=== PATIENT | female | born 1930 | race Caucasian/White ===

== ENCOUNTER 2017-02-04 12:42 | Emergency (ER) | payer MEDICARE ==
[~2017-02-04] VITALS: Ht 157.5 cm; Wt 60.0 kg
[~2017-02-04 12:42] MED LIST: AMLO10 PO; DOCU1CAP39 PO; ESCI10TA PO; FURO20 PO; LEVEMIR SQ; LEVO.1 PO; LORTA5 PO; METF500 PO; METO50TA PO; PROT40TA PO; THERM PO; VITA20002 PO
[2017-02-04 12:47] VITALS: BP 174/84; PULSE 82; RESP 16; TEMP 98.3; O2SAT 96
[2017-02-04] MEDS ORDERED: CHOL20005 PO (12:57)
[2017-02-04] MEDS ORDERED: FURO20TA PO (12:57)
[2017-02-04] MEDS ORDERED: METF500T PO (12:57)
[2017-02-04] MEDS ORDERED: ESCI20TA PO (12:57)
[2017-02-04] MEDS ORDERED: BACT400T PO (12:57)
[2017-02-04] MEDS ORDERED: GABA100C4 PO (12:57)
--- NOTE | 2017-02-04 14:10 | RADHPO ---
EXAM DATE/TIME: 02/04/2017 13:34 [facility] COMPARISON: CT BRAIN W/O CONTRAST, May 28, 2014, 23:25. INDICATIONS : Fall and dizziness. RADIATION DOSE: 62.69 CTDIvol (mGy) MEDICAL HISTORY : Seizures. Cerebrovascular disease. Hypertension.uterine cancer. SURGICAL HISTORY : Hysterectomy. ENCOUNTER: Initial ACUITY: 1 day PAIN SCALE: 4/10 LOCATION: cranial TECHNIQUE: Multiple contiguous axial images were obtained of the head. Using automated exposure control and adj ustment of the mA and/or kV according to patient size, radiation dose was kept as low as reasonably a chievable to obtain optimal diagnostic quality images. FINDINGS: Remote left occipital infarct with encephalomalacia and ex vacuo dilatation of the posterior horn of the left lateral ventricle. There is patchy white matter disease. No fractures are identified. Chroni c opacification of right maxillary sinus. No signs of intracranial hemorrhage, acute infarct, or mass . CONCLUSION: No acute disease. Abdon Garcia MD on February 04, 2017 at 14:08 Board Certified Radiologist. This report was verified electronically.
--- NOTE | 2017-02-04 14:11 | RADHPO ---
EXAM DATE/TIME: 02/04/2017 13:34 [facility] COMPARISON: No previous studies available for comparison. INDICATIONS : Left shoulder pain; fall today. MEDICAL HISTORY : None. SURGICAL HISTORY : None. ENCOUNTER: Initial ACUITY: 1 day PAIN SCORE: 2/10 LOCATION: Left shoulder. FINDINGS: Multiple view examination of the left shoulder demonstrates no evidence of fracture or dislocation. The glenohumeral and acromioclavicular joints are maintained. There is normal range of motion betwee n internal and external rotation. Bony mineralization is normal. CONCLUSION: No acute disease. Abdon Garcia MD on February 04, 2017 at 14:10 Board Certified Radiologist. This report was verified electronically.
--- NOTE | 2017-02-04 14:46 | RADHPO ---
EXAM DATE/TIME: 02/04/2017 13:34 [facility] COMPARISON: No previous studies available for comparison. INDICATIONS : Fall. Dizziness. RADIATION DOSE: 26.55 CTDIvol (mGy) MEDICAL HISTORY : Cerebrovascular disease. Hypertension. Seizures.Uterine cancer. SURGICAL HISTORY : Hysterectomy. ENCOUNTER: Initial ACUITY: 1 day PAIN SCALE: 4/10 LOCATION: Bilateral neck TECHNIQUE: Volumetric scanning of the cervical spine was performed. Multiplanar reconstructions in the sagittal, coronal and oblique axial planes were performed. Using automated exposure control and adjustment o f the mA and/or kV according to patient size, radiation dose was kept as low as reasonably achievable to obtain optimal diagnostic quality images. FINDINGS: VERTEBRAE: Normal vertebral body height. No fracture is identified. There is partial fusion between the C7 and T 1 vertebral body and posterior elements. ALIGNMENT: No anterolisthesis or retrolisthesis is present. The craniocervical junction and C1-C2 level demonstrate no acute finding. There are degenerative rhoades ges at the atlantodens interval. C2-C3: No disc herniation, canal stenosis, or neural foraminal stenosis. C3-C4: No disc herniation, canal stenosis, or neural foraminal stenosis. C4-C5: There is a small central disc protrusion which appears to abut the anterior aspect of the spinal cord . However, no spinal canal stenosis or neural foraminal narrowing is appreciated. C5-C6: There is mild decreased disc height with moderate size central disc protrusion with mineralization. T his abuts the spinal cord and likely causes mild spinal canal stenosis. No neural foraminal narrowing is appreciated. C6-C7: There is a broad-based disc bulge. No spinal canal stenosis or neural foraminal narrowing is visualiz ed. C7-T1: There is partial osseous fusion between these levels. No canal stenosis or neural foraminal narrowing is present. The visualized paraspinous structures demonstrate no acute finding. There is mild centrilobular emphy sema in the upper lobes. Please refer to brain CT report for description of the intracranial findings . CONCLUSION: 1. No acute cervical spine abnormality or fracture is identified. 2. There is a disc herniation at C4-C5 and C5-C6. At C5-C6 there is likely mild spinal canal stenosis due to the disc herniation. Vishnu Pineda MD on February 04, 2017 at 14:38 Board Certified Radiologist. This report was verified electronically.
--- NOTE | 2017-02-04 14:55 | PD ---
HPI . Fall Chief Complaint: Dizziness Time Seen by Provider: 13:18 Travel History International Travel<30 days: No Contact w/Intl Traveler<30days: No Traveled to known affect area: No History of Present Illness HPI Patient presents ambulatory to family member following a fall at home. She has a history of dementia. She lives with the family member. She reportedly had a mechanical fall and struck her head on a piece of furniture. She subsequently complained with dizziness. She has also been complaining with left shoulder pain. PFSH Past Medical History Hx Anticoagulant Therapy: No Alzheimer's Disease: Yes Arthritis: Yes Asthma: No Autoimmune Disease: No Anxiety: No Depression: No Heart Rhythm Problems: No Cancer: Yes (uterine ) Cardiovascular Problems: Yes High Cholesterol: No Chemotherapy: Yes Chest Pain: No Congestive Heart Failure: No COPD: No Cerebrovascular Accident: Yes (R CVA) Diabetes: Yes Patient Takes Glucophage: Yes Diminished Hearing: No Endocrine: Yes GERD: Yes Genitourinary: No Hiatal Hernia: Yes (REPAIRED) Hypertension: Yes Immune Disorder: No Kidney Stones: No Musculoskeletal: Yes Neurologic: Yes Psychiatric: No Reproductive: No Respiratory: Yes Radiation Therapy: No Renal Failure: No Seizures: Yes ( CHILD) Sickle Cell Disease: No Sleep Apnea: No Thyroid Disease: Yes (HYPO) Ulcer: No Tetanus Vaccination: > 5 Years Influenza Vaccination: Yes ?: Not Menopausal: Yes Past Surgical History Abdominal Surgery: Yes (brittney) AICD: No Appendectomy: Yes Arteriovenous Shunt: No Cardiac Surgery: No Cholecystectomy: Yes Ear Surgery: No Endocrine Surgery: No Eye Surgery: No Genitourinary Surgery: No Gynecologic Surgery: Yes (hysterectomy) Hysterectomy: Yes Insulin Pump: No Joint Replacement: No Oral Surgery: No Pacemaker: No Thoracic Surgery: No Other Surgery: Yes Social History Alcohol Use: No Tobacco Use: No Substance Use: No Allergies-Medications (Allergen,Severity, Reaction): Coded Allergies: No Known Allergies (Unverified , 02/04/17) Reported Meds & Prescriptions Reported Meds & Active Scripts Active Reported Gabapentin 100 Mg Cap 100 Mg PO HS Metformin (Metformin HCl) 500 Mg Tab 500 Mg PO BIDPC With meals Bactrim (Sulfamethoxazole-Trimethoprim) 400-80 Mg Tab 1 Tab PO BID Escitalopram (Escitalopram Oxalate) 20 Mg Tab 20 Mg PO DAILY Furosemide 20 Mg Tab 20 Mg PO DAILY D3 Super Strength (Cholecalciferol) 2,000 Unit Cap 2,000 Units PO DAILY Review of Systems Except as stated in HPI: all other systems reviewed are Neg Eyes: No: Blurred Vision HENT: Positive: Headaches Musculoskeletal: Positive: Arthralgias Neurologic: Positive: Dizziness Physical Exam Narrative GENERAL: Pleasant, elderly, demented woman who is in no acute distress SKIN: Warm and dry. HEAD: Contusion palpable to the left side of her scalp. EYES: Pupils equal and round. Extraocular movements are intact. ENT: No nasal bleeding or discharge. Mucous membranes pink and moist. NECK: Trachea midline. She does not seem to have any C-spine tenderness. CARDIOVASCULAR: Regular rate and rhythm. RESPIRATORY: No accessory muscle use. MUSCULOSKELETAL: No obvious deformities. No edema. She has tenderness over the left posterior glenohumeral joint. NEUROLOGICAL: Awake and alert. No obvious cranial nerve deficits. Motor grossly within normal limits. Normal speech. PSYCHIATRIC: Appropriate mood and affect. Data Data Last Documented VS Vital Signs Date Time Temp Pulse Resp B/P Pulse Ox O2 Delivery O2 Flow Rate FiO2 02/04/17 13:02 87 100 Room Air 02/04/17 12:47 98.3 16 174/[address] Brain W/O Iv Contrast(Rout) (02/04/17 13:18) Ct Cerv Spine W/O Contrast (02/04/17 13:18) Shoulder, Complete (>2vws) (02/04/17 13:18) [facility] Medical Decision Making Medical Screen Exam Complete: Yes Emergency Medical Condition: Yes Differential Diagnosis My differential diagnosis of head trauma includes but is not limited to scalp contusion, concussion, intracerebral hemorrhage. Differential diagnosis of extremity trauma includes but is not limited to fracture, sprain or strain, dislocation, contusion Narrative Course Patient presents for evaluation of injury sustained in a fall. She has had a blow to her head and is complaining of left shoulder pain. Last Impressions Shoulder X-Ray 02/04/171317 Signed Impressions: Service Date/Time: Saturday, February 04, 2017 13:34 - CONCLUSION: No acute disease. Abdon Garcia MD Head CT 02/04/178 Signed Impressions: Service Date/Time: Saturday, February 04, 2017 13:34 - CONCLUSION: No acute disease. Abdon Garcia MD CT of her C-spine is also negative for acute injury. Some degenerative changes. Plain films were independently viewed by me. Diagnosis Primary Impression: Scalp contusion Additional Impression: Contusion of left shoulder Qualified Code: S40.012A - Contusion of left shoulder, initial encounter Patient Instructions: General Instructions, Scalp Contusion in Adults (ED) Disposition: 01 DISCHARGE HOME Condition: Stable Cleopatra Sawyer MD Feb 04, 2017 14:55
== END 2017-02-04 15:09 | disposition home or self-care (01) ==
LOC: PHED 12:42
DX: S40.012A Contusion of left shoulder, initial encounter (principal); S00.03XA Contusion of scalp, initial encounter; I10 Essential (primary) hypertension; F03.90 Unspecified dementia, unspecified severity, without behavioral disturbance, psychotic disturbance, mood disturbance, and anxiety; Z86.73 Personal history of transient ischemic attack (TIA), and cerebral infarction without residual deficits; E03.9 Hypothyroidism, unspecified; W18.30XA Fall on same level, unspecified, initial encounter; Y93.9 Activity, unspecified; Y92.9 Unspecified place or not applicable; Y99.9 Unspecified external cause status
CPT/HCPCS: 70450; 72125; 73030

== ENCOUNTER 2017-05-28 23:24 | Emergency (ER) | payer MEDICARE ==
[~2017-05-28] VITALS: Ht 154.9 cm; Wt 60.0 kg
[~2017-05-28 23:24] MED LIST changes: -AMLO10 PO; +BACT400T PO; +CHOL20005 PO; -DOCU1CAP39 PO; -ESCI10TA PO; +ESCI20TA PO; -FURO20 PO; +FURO20TA PO; +GABA100C4 PO; -LEVEMIR SQ; -LEVO.1 PO; -LORTA5 PO; -METF500 PO; +METF500T PO; -METO50TA PO; -PROT40TA PO; -THERM PO; -VITA20002 PO
[2017-05-28 23:31] VITALS: BP 162/65; PULSE 92; RESP 18; TEMP 98.4; O2SAT 97
[2017-05-28] MEDS ORDERED: SODIUM CHLORIDE 0.9% FLUSH 10 ML FLUSH IVF PRN (23:45)
[2017-05-28] MEDS ORDERED: LANTUS2P SQ (23:46)
--- NOTE | 2017-05-28 23:48 | PD ---
HPI Chief Complaint: Fall Time Seen by Provider: 23:44 Travel History International Travel<30 days: No Contact w/Intl Traveler<30days: No Traveled to known affect area: No History of Present Illness HPI 86-year-old female with history of dementia, presents to the ER today brought in by granddaughter because she tripped and fell at home hitting her head. She has an abrasion to the right forehead area, denies loss of consciousness, denies injuries. She only complains of a headache currently. Modifying Factors: None Associated Signs & Symptoms: Trip and fall, head injury Risk Factors: Elderly, demented PFSH Past Medical History Hx Anticoagulant Therapy: No Alzheimer's Disease: Yes Arthritis: Yes Asthma: No Autoimmune Disease: No Anxiety: No Depression: No Heart Rhythm Problems: No Cancer: Yes (uterine ) Cardiovascular Problems: Yes High Cholesterol: No Chemotherapy: Yes Chest Pain: No Congestive Heart Failure: No COPD: No Cerebrovascular Accident: Yes (R CVA) Diabetes: Yes Diminished Hearing: No Endocrine: Yes GERD: Yes Genitourinary: No Hiatal Hernia: Yes (REPAIRED) Hypertension: Yes Immune Disorder: No Kidney Stones: No Musculoskeletal: Yes Neurologic: Yes Psychiatric: No Reproductive: No Respiratory: Yes Radiation Therapy: No Renal Failure: No Seizures: Yes ( CHILD) Sickle Cell Disease: No Sleep Apnea: No Thyroid Disease: Yes (HYPO) Ulcer: No ?: Not Menopausal: Yes Past Surgical History Abdominal Surgery: Yes (brittney) AICD: No Appendectomy: Yes Arteriovenous Shunt: No Cardiac Surgery: No Cholecystectomy: Yes Ear Surgery: No Endocrine Surgery: No Eye Surgery: No Genitourinary Surgery: No Gynecologic Surgery: Yes (hysterectomy) Hysterectomy: Yes Insulin Pump: No Joint Replacement: No Oral Surgery: No Pacemaker: No Thoracic Surgery: No Other Surgery: Yes Social History Alcohol Use: No Tobacco Use: No Substance Use: No Allergies-Medications (Allergen,Severity, Reaction): Coded Allergies: No Known Allergies (Unverified , 05/28/17) Reported Meds & Prescriptions Reported Meds & Active Scripts Active Reported Lantus Inj (Insulin Glargine) 1,000 Unit/10 Ml Vial 10 Units SQ HS Gabapentin 100 Mg Cap 100 Mg PO HS Metformin (Metformin HCl) 500 Mg Tab 500 Mg PO BIDPC With meals Escitalopram (Escitalopram Oxalate) 20 Mg Tab 20 Mg PO DAILY Furosemide 20 Mg Tab 20 Mg PO DAILY D3 Super Strength (Cholecalciferol) 2,000 Unit Cap 2,000 Units PO DAILY Review of Systems ROS Limitations: Altered Mental Status (dementia) Except as stated in HPI: all other systems reviewed are Neg (per granddaughter) Physical Exam Narrative GENERAL: Well-developed elderly white female patient currently in no acute distress. Awake, alert. SKIN: Focused skin assessment warm/dry. HEAD: Small abrasion and ecchymosis over the right eyebrow. Normocephalic. EYES: Pupils equal and round. No scleral icterus. No injection or drainage. ENT: No nasal bleeding or discharge. Mucous membranes pink and moist. NECK: Trachea midline. No JVD. C-collar placed in the ER. CARDIOVASCULAR: Regular rate and rhythm. No murmur appreciated. CHEST: Nontender throughout without deformity or crepitance. No retractions or use of accessory muscles. RESPIRATORY: No accessory muscle use. Clear to auscultation. Breath sounds equal bilaterally. GASTROINTESTINAL: Abdomen soft, non-tender, nondistended. Hepatic and splenic margins not palpable. Pelvis: Stable and nontender to palpation. Nontender range of motion of the hips. MUSCULOSKELETAL: No obvious deformities. No clubbing. No cyanosis. No edema. NEUROLOGICAL: Awake and alert. No obvious cranial nerve deficits. Motor grossly within normal limits. Normal speech. PSYCHIATRIC: Appropriate mood and affect; insight and judgment normal. Data Data Last Documented VS Vital Signs Date Time Temp Pulse Resp B/P Pulse Ox O2 Delivery O2 Flow Rate FiO2 05/29/17 00:52 85 16 147/64 97 Room Air 05/28/17 23:31 98.4 Orders Basic Metabolic Panel (Bmp) (05/28/17 23:44) Complete Blood Count With Diff (05/28/17 23:44) Prothrombin Time / Inr (Pt) (05/28/17 23:44) Act Partial Throm Time (Ptt) (05/28/17 23:44) Type And Screen (05/28/17 23:44) Chest, Single Ap (05/28/17 23:44) Pelvis, Ap Only (Routine) (05/28/17 23:44) Iv Access Insert/Monitor (05/28/17 23:44) Ecg Monitoring (05/28/17 23:44) Oximetry (05/28/17 23:44) Oxygen Administration (05/28/17 23:44) Sodium Chloride 0.9% Flush (Ns Flush) (05/28/17 23:45) Shoulder, Limited(2vws) (05/28/17 23:48) Ct Brain W/O Iv Contrast(Rout) (05/29/17 23:44) Ct Cerv Spine W/O Contrast (05/29/17 23:44) Tetanus/Diphtheria Tox Adult (Tetanus/Di (05/29/17 01:00) Labs Laboratory Tests Test 05/29/17 00:20 White Blood Count 55.8 TH/MM3 Red Blood Count 3.29 MIL/MM3 Hemoglobin 9.7 GM/DL Hematocrit 29.0 % Mean Corpuscular Volume 88.3 FL Mean Corpuscular Hemoglobin 29.5 PG Mean Corpuscular Hemoglobin 33.5 % Concent Red Cell Distribution Width 13.6 % Platelet Count 135 TH/MM3 Mean Platelet Volume 6.7 FL Neutrophils (%) (Auto) % Lymphocytes (%) (Auto) % Monocytes (%) (Auto) % Eosinophils (%) (Auto) % Basophils (%) (Auto) % Neutrophils # (Auto) TH/MM3 Lymphocytes # (Auto) TH/MM3 Monocytes # (Auto) TH/MM3 Eosinophils # (Auto) TH/MM3 Basophils # (Auto) TH/MM3 CBC Comment AUTO DIFF Differential Total Cells 100 Counted Neutrophils % (Manual) 6 % Band Neutrophils % 1 % Lymphocytes % 92 % Monocytes % 1 % Neutrophils # (Manual) 3.9 TH/MM3 Differential Comment FINAL DIFF MANUAL Platelet Estimate LOW Platelet Morphology Comment NORMAL Red Cell Morphology Comment NORMAL Prothrombin Time 10.0 SEC Prothromb Time International 0.9 RATIO Ratio Activated Partial 25.8 SEC Thromboplast Time Sodium Level 136 MEQ/L Potassium Level 3.8 MEQ/L Chloride Level 100 MEQ/L Carbon Dioxide Level 27.7 MEQ/L Anion Gap 8 MEQ/L Blood Urea Nitrogen 26 MG/DL Creatinine 1.80 MG/DL Estimat Glomerular Filtration 27 ML/MIN Rate Random Glucose 261 MG/DL Calcium Level 8.5 MG/DL [facility] Medical Decision Making Medical Screen Exam Complete: Yes Emergency Medical Condition: Yes Medical Record Reviewed: Yes Interpretation(s) Laboratory Tests Test 05/29/17 00:20 White Blood Count 55.8 TH/MM3 (4.0-11.0) Red Blood Count 3.29 MIL/MM3 (4.00-5.30) Hemoglobin 9.7 GM/DL (11.6-15.3) Hematocrit 29.0 % (35.0-46.0) Platelet Count 135 TH/MM3 (150-450) Mean Platelet Volume 6.7 FL (7.0-11.0) Neutrophils % (Manual) 6 % (16-70) Lymphocytes % 92 % (9-44) Platelet Estimate LOW (NORMAL) Blood Urea Nitrogen 26 MG/DL (7-18) Creatinine 1.80 MG/DL (0.50-1.00) Estimat Glomerular Filtration 27 ML/MIN (>89) Rate Random Glucose 261 MG/DL (74-106) Last [address] 05/29/172343 Signed Impressions: Service Date/Time: Sunday, May 28, 2017 23:55 - CONCLUSION: 1. No acute hemorrhage, mass or infarction. 2. Remote left occipital infarct without change. Terrance Perez MD Cervical Spine CT 05/29/172343 Signed Impressions: Service Date/Time: Sunday, May 28, 2017 23:55 - CONCLUSION: Negative trauma CT. Terrance Perez MD Shoulder X-Ray 05/28/172347 Signed Impressions: Service Date/Time: Sunday, May 28, 2017 23:53 - CONCLUSION: 1. No acute fracture or malalignment. 2. Mild degenerative change involving the acromioclavicular joint. Terrance Perez MD Pelvis X-Ray 05/28/172343 Signed Impressions: Service Date/Time: Sunday, May 28, 2017 23:57 - CONCLUSION: 1. No acute fracture or malalignment. 2. Osteopenia and interval postsurgical change. Terrance Perez MD Chest X-Ray 05/28/172343 Signed Impressions: Service Date/Time: Sunday, May 28, 2017 23:52 - CONCLUSION: No acute disease. Terrance Perez MD Differential Diagnosis Intercranial injuries versus contusions versus fractures Narrative Course Lab work shows significant leukocytosis although this is mostly lymphocytosis and I suspect that this is secondary to patient's chronic CLL for which she is following up with hospice/home health aide. X-rays and CAT scans did not show any signs of acute injuries. She was given an update on her tetanus shot. At this point, findings were discussed with the patient's granddaughter and she states understanding. She will need to follow-up with primary care physician and hospice/home health aide regarding findings. She is afebrile and I do not suspect that this is secondary to sepsis. Return for any worsening in symptoms as needed. The plan has discussed with patient's granddaughter and she states understanding. Diagnosis Primary Impression: Scalp contusion Additional Impression: CLL (chronic lymphocytic leukemia) Disposition: 01 DISCHARGE HOME Condition: Stable Shekhar Hernandez MD May 28, 2017 23:48
--- NOTE | 2017-05-29 00:29 | RADRPT ---
EXAM DATE/TIME: 05/28/2017 23:55 [facility] COMPARISON: CT BRAIN W/O CONTRAST, February 04, 2017, 13:34. INDICATIONS : Fall, right sided pain. RADIATION DOSE: 57.32 CTDIvol (mGy) MEDICAL HISTORY : Hypertension. Cardiovascular disease Diabetes mellitus type 2.Uterine Cancer SURGICAL HISTORY : Appendectomy. Cholecystectomy.Hysterectomy. ENCOUNTER: Initial ACUITY: 1 day PAIN SCALE: 3/10 LOCATION: cranial TECHNIQUE: Multiple contiguous axial images were obtained of the head. Using automated exposure control and adj ustment of the mA and/or kV according to patient size, radiation dose was kept as low as reasonably a chievable to obtain optimal diagnostic quality images. DICOM format image data is available electro nically for review and comparison. FINDINGS: CEREBRUM: The ventricles are normal for age. No evidence of midline shift, mass lesion, hemorrhage or acute in farction. Old left occipital infarct is again noted with encephalomalacia and [id number] dila tation of the posterior horn of the left lateral ventricle. Patchy white matter changes are again not ed. No extra-axial fluid collections are seen. POSTERIOR FOSSA: The cerebellum and brainstem are intact. The 4th ventricle is midline. The cerebellopontine angle i s unremarkable. EXTRACRANIAL: The visualized portion of the orbits is intact. SKULL: The calvaria is intact. No evidence of skull fracture. CONCLUSION: 1. No acute hemorrhage, mass or infarction. 2. Remote left occipital infarct without change. Terrance Perez MD on May 29, 2017 at 0:25 Board Certified Radiologist. This report was verified electronically.
--- NOTE | 2017-05-29 00:31 | RADRPT ---
EXAM DATE/TIME: 05/28/2017 23:55 [facility] COMPARISON: CT CERVICAL SPINE W/O CONTRAST, February 04, 2017, 13:34. INDICATIONS : Fall, right sided pain. RADIATION DOSE: 25.79 CTDIvol (mGy) MEDICAL HISTORY : Hypertension. Cardiovascular disease Diabetes mellitus type 2.Uterine cancer SURGICAL HISTORY : Cholecystectomy. Appendectomy.Hysterectomy. ENCOUNTER: Initial ACUITY: 1 day PAIN SCALE: 3/10 LOCATION: neck TECHNIQUE: Volumetric scanning of the cervical spine was performed. Multiplanar reconstructions i n the sagittal, coronal and oblique axial planes were performed. Using automated exposure control a nd adjustment of the mA and/or kV according to patient size, radiation dose was kept as low as reason ably achievable to obtain optimal diagnostic quality images. DICOM format image data is available e lectronically for review and comparison. FINDINGS: The sagittal reconstructions demonstrate normal alignment and normal prevertebral soft tissues. The d ens is intact and there is a normal atlantoaxial relationship. Degenerative changes again noted in th e atlantoaxial joint. There is stable remote fusion of the C7 and T1 vertebral bodies. The axial images demonstrate that the vertebral bodies and posterior elements are intact. The soft ti ssues are within normal limits. There is no evidence of acute fracture or malalignment. CONCLUSION: Negative trauma CT. Terrance Perez MD on May 29, 2017 at 0:27 Board Certified Radiologist. This report was verified electronically.
--- NOTE | 2017-05-29 00:32 | RADRPT ---
EXAM DATE/TIME: 05/28/2017 23:52 [facility] COMPARISON: CHEST SINGLE AP, December 28, 2015, 16:07. INDICATIONS : Chest pain after fall. MEDICAL HISTORY : Cerebrovascular disease. Hypertension. Seizures.Uterine cancer. SURGICAL HISTORY : Hysterectomy. ENCOUNTER: Initial ACUITY: 1 day PAIN SCORE: 3/10 LOCATION: Bilateral chest FINDINGS: A single view of the chest demonstrates the lungs to be symmetrically aerated without evidence of mas s, infiltrate or effusion. The cardiomediastinal contours are unremarkable. Osseous structures are intact. CONCLUSION: No acute disease. Terrance Perez MD on May 29, 2017 at 0:30 Board Certified Radiologist. This report was verified electronically.
--- NOTE | 2017-05-29 00:33 | RADRPT ---
EXAM DATE/TIME: 05/28/2017 23:57 [facility] COMPARISON: PELVIS AP ONLY, December 28, 2015, 16:06. INDICATIONS : Pelvic pain post fall. MEDICAL HISTORY : Cerebrovascular disease. Hypertension. Seizures.Uterine cancer. SURGICAL HISTORY : Hysterectomy. Right hip replacement. ENCOUNTER: Initial ACUITY: 1 day PAIN SCORE: 6/10 LOCATION: Bilateral pelvis FINDINGS: A single frontal view of the pelvis demonstrates no evidence of fracture. The bony pelvic ring is in tact. There is diffuse osteopenia. Interval postsurgical changes are again noted status post open rig id internal fixation of a right intertrochanteric fracture. The soft tissues are intact. CONCLUSION: 1. No acute fracture or malalignment. 2. Osteopenia and interval postsurgical change. Terrance Perez MD on May 29, 2017 at 0:31 Board Certified Radiologist. This report was verified electronically.
--- NOTE | 2017-05-29 00:36 | RADRPT ---
EXAM DATE/TIME: 05/28/2017 23:53 [facility] COMPARISON: No previous studies available for comparison. INDICATIONS : Right shoulder pain post fall. MEDICAL HISTORY : Cerebrovascular disease. Hypertension. Seizures.Uterine cancer. SURGICAL HISTORY : Hysterectomy. ENCOUNTER: Initial ACUITY: 1 day PAIN SCORE: 3/10 LOCATION: Right shoulder FINDINGS: A two-view examination was obtained and demonstrates no acute fracture or malalignment. There are mil d degenerative changes involving acromioclavicular joint. The labral joint is intact. There is mild o steopenia. The soft tissues are unremarkable. CONCLUSION: 1. No acute fracture or malalignment. 2. Mild degenerative change involving the acromioclavicular joint. Terrance Perez MD on May 29, 2017 at 0:34 Board Certified Radiologist. This report was verified electronically.
[2017-05-29 00:37] LABS: MEAN CELL VOLUME 88.3 FL (80.0-100.0); MEAN CORPUSCULAR HEMOGLOBIN 29.5 PG (27.0-34.0); MEAN CORPUSCULAR HGB CONC 33.5 % (32.0-36.0); PLATELET COUNT 135 TH/MM3 (150-450); RED BLOOD COUNT 3.29 MIL/MM3 (4.00-5.30); RED CELL DISTRIBUTION WIDTH 13.6 % (11.6-17.2); WHITE BLOOD COUNT 55.8 TH/MM3 (4.0-11.0)
[2017-05-29 00:42] LABS: HEMO FLAGS AUTO DIFF
[2017-05-29 00:51] LABS: POTASSIUM 3.8 MEQ/L (3.5-5.1)
[2017-05-29 00:52] VITALS: BP 147/64; PULSE 85; RESP 16; O2SAT 97
[2017-05-29 00:54] LABS: BICARBONATE 27.7 MEQ/L (21.0-32.0)
[2017-05-29 00:58] LABS: APTT (PATIENT) 25.8 SEC (24.3-30.1); INTERNATIONAL NORMALIZED RATIO 0.9 RATIO
[2017-05-29] MEDS ORDERED: TETANUS/DIPHTHERIA TOXOID ADULT 0.5 ML VIAL IM ONE (01:00)
[2017-05-29 01:14] LABS: BANDS 1 % (0-6); NEUTROPHIL # MANUAL DIFF 3.9 TH/MM3 (1.8-7.7); POLYS (SEG NEUTROPHILS) 6 % (16-70); WBC DIFF SAMPLE 100
[2017-05-29 01:15] LABS: PLATELET ESTIMATE SMEAR LOW (NORMAL); PLATELET MORPHOLOGY NORMAL (NORMAL); SCAN/DIFF FINAL DIFF MANUAL
== END 2017-05-29 01:53 | disposition home or self-care (01) ==
LOC: PHED 23:24
DX: S00.03XA Contusion of scalp, initial encounter (principal); C91.10 Chronic lymphocytic leukemia of B-cell type not having achieved remission; F03.90 Unspecified dementia, unspecified severity, without behavioral disturbance, psychotic disturbance, mood disturbance, and anxiety; W01.0XXA Fall on same level from slipping, tripping and stumbling without subsequent striking against object, initial encounter; Y92.009 Unspecified place in unspecified non-institutional (private) residence as the place of occurrence of the external cause; Z23 Encounter for immunization
CPT/HCPCS: 70450; 71010; 72125; 72170; 73030; 80048; 85007; 85027; 85610; 85730; 86077; 86850; 86870; 86880; 86900; 86901; 86902; 90471; 90714

== ENCOUNTER 2017-09-09 19:00 | Inpatient (IN) | payer MEDICARE ==
[~2017-09-09 19:00] MED LIST changes: -BACT400T PO; -CHOL20005 PO; +D200CAP PO; +LANTUS2P SQ
[2017-09-09 19:21] VITALS: BP 155/68; PULSE 90; RESP 18; TEMP 101.5
--- NOTE | 2017-09-09 20:08 | PD ---
HPI Chief Complaint: Fever Time Seen by Provider: 20:00 Travel History International Travel<30 days: No Contact w/Intl Traveler<30days: No Traveled to known affect area: No History of Present Illness HPI 87-year-old female came to the emergency room brought by her daughter and granddaughter for refusing to eat or drink much and not feeling well since yesterday. Today she started having a fever when the decided to bring her in. The concern was dehydration as well since patient was not really keeping up with drinking. Patient has history of CLL and some dementia. As per the family her mental status is at the baseline currently. Patient had a temperature 101.5 in triage. They have been sick members in the family her on the patient. She had her flu shot in the beginning of June. Patient is not coughing, no vomiting or diarrhea. She is awake but confused. She was complaining of some left earache. PFS Past Medical History Narrative Medical List of her past medical, surgical, social and family history is reviewed from the nursing note. Hx Anticoagulant Therapy: No Alzheimer's Disease: Yes Arthritis: Yes Asthma: No Autoimmune Disease: No Anxiety: No Depression: No Heart Rhythm Problems: No Cancer: Yes (uterine ) Cardiovascular Problems: Yes High Cholesterol: No Chemotherapy: Yes (leukemia) Chest Pain: No Congestive Heart Failure: No COPD: No Cerebrovascular Accident: Yes (R CVA) Diabetes: Yes Diminished Hearing: No Endocrine: Yes Gastrointestinal Disorders: No GERD: Yes Genitourinary: No Headaches: No Hiatal Hernia: Yes (REPAIRED) Heparin Induced Thrombocytopen: No Hypertension: Yes Immune Disorder: No Implanted Vascular Access Dvce: No Kidney Stones: No Musculoskeletal: Yes Neurologic: Yes Psychiatric: No Reproductive: No Respiratory: Yes Radiation Therapy: No Renal Failure: No Seizures: Yes ( CHILD) Sickle Cell Disease: No Sleep Apnea: No Thyroid Disease: Yes (HYPO) Ulcer: No Menopausal: Yes Past Surgical History Abdominal Surgery: Yes (brittney) AICD: No Appendectomy: Yes Arteriovenous Shunt: No Cardiac Surgery: No Cholecystectomy: Yes Ear Surgery: No Endocrine Surgery: No Eye Surgery: No Genitourinary Surgery: No Gynecologic Surgery: Yes (hysterectomy) Hysterectomy: Yes Insulin Pump: No Joint Replacement: No Neurologic Surgery: No Oral Surgery: No Pacemaker: No Thoracic Surgery: No Other Surgery: Yes Social History Alcohol Use: No Tobacco Use: No Substance Use: No Allergies-Medications (Allergen,Severity, Reaction): Coded Allergies: No Known Allergies (Unverified Allergy, Unknown, 09/09/17) Comments No known drug allergies. Reported Meds & Prescriptions Reported Meds & Active Scripts Active Reported Imbruvica (Ibrutinib) 140 Mg Cap 420 Escitalopram (Escitalopram Oxalate) 20 Mg Tab 40 Mg PO DAILY Lantus Inj (Insulin Glargine) 1,000 Unit/10 Ml Vial 20 Units SQ HS Gabapentin 100 Mg Cap 100 Mg PO TID Furosemide 20 Mg Tab 10 Mg PO EVERY OTHER DAY D3 Super Strength (Cholecalciferol) 2,000 Unit Cap 2,000 Units PO DAILY Narrative Medication List of her home medications reviewed from the nursing note. Review of Systems Except as stated in HPI: all other systems reviewed are Neg General / Constitutional: Positive: Fever HENT: Positive: Earache Gastrointestinal: Positive: Loss of Appetite Physical Exam Narrative GENERAL: Awake, alert, elderly, confused, frail SKIN: Focused skin assessment warm/dry. HEAD: Atraumatic. Normocephalic. EYES: Pupils equal and round. No scleral icterus. No injection or drainage. ENT: No nasal bleeding or discharge. Dry mucous membrane. Bilateral TMs were pale and shiny. NECK: Trachea midline. No JVD. CARDIOVASCULAR: Regular rate and rhythm. No murmur appreciated. RESPIRATORY: No accessory muscle use. Clear to auscultation. Breath sounds equal bilaterally. GASTROINTESTINAL: Abdomen soft, non-tender, nondistended. Hepatic margin not palpable. Grade 2 splenomegaly MUSCULOSKELETAL: No obvious deformities. No clubbing. No cyanosis. No edema. NEUROLOGICAL: Awake and alert. No obvious cranial nerve deficits. Motor grossly within normal limits. Normal speech. PSYCHIATRIC: Appropriate mood and affect; insight and judgment normal. Data Data Last Documented VS Vital Signs Date Time Temp Pulse Resp B/P (MAP) Pulse Ox O2 Delivery O2 Flow Rate FiO2 09/09/17 21:26 83 20 99 Nasal Cannula 2.00 09/09/17 20:50 132/45 (74) 09/09/17 19:21 101.5 Orders Orders Sepsis Workup Initiated (09/09/17 ) Complete Blood Count With Diff (09/09/17 20:17) Comprehensive Metabolic Panel (09/09/17 20:17) Lactic Acid Sepsis Protocol (09/09/17 20:17) Urinalysis - C+S If Indicated (09/09/17 20:17) Influenzae A/B Antigen (09/09/17 20:17) Blood Culture (09/09/17 20:17) Chest, Single Ap (09/09/17 20:17) Blood Glucose (09/09/17 20:17) Ecg Monitoring (09/09/17 20:17) Iv Access Insert/Monitor (09/09/17 20:17) Oximetry (09/09/17 20:17) Oxygen Administration (09/09/17 20:17) Acetaminophen Supp (Tylenol Supp) (09/09/17 20:30) Sodium Chlor 0.9% 1000 Ml Inj (Ns 1000 M (09/09/17 20:17) Sodium Chlor 0.9% 1000 Ml Inj (Ns 1000 M (09/09/17 20:17) Cefepime Inj (Maxipime Inj) (09/09/17 21:45) Vancomycin Inj (Vancomycin Inj) (09/09/17 21:45) Admit Order (Ed Use Only) (09/09/17 21:47) Cefepime Inj (Maxipime Inj) (09/10/17 06:00) Vancomycin Consult Pharmacy (Vancomycin (09/09/17 21:45) Vancomycin Inj (Vancomycin Inj) (09/10/17 10:00) Sodium Chlor 0.9% 1000 Ml Inj (Ns 1000 M (09/09/17 21:45) Labs Laboratory Tests Test 09/09/17 20:25 09/09/17 20:55 White Blood Count 77.7 TH/MM3 Red Blood Count 2.63 MIL/MM3 Hemoglobin 8.6 GM/DL Hematocrit 24.5 % Mean Corpuscular Volume 93.2 FL Mean Corpuscular Hemoglobin 32.5 PG Mean Corpuscular Hemoglobin Concent 34.9 % Red Cell Distribution Width 15.7 % Platelet Count 98 TH/MM3 Mean Platelet Volume 7.4 FL CBC Comment AUTO DIFF Differential Total Cells Counted 100 Neutrophils % (Manual) 4 % Lymphocytes % 96 % Neutrophils # (Manual) 3.1 TH/MM3 Differential Comment FINAL DIFF MANUAL Platelet Estimate LOW Platelet Morphology Comment NORMAL Red Cell Morphology Comment NORMAL Blood Urea Nitrogen 25 MG/DL Creatinine 1.50 MG/DL Random Glucose 234 MG/DL Total Protein 6.9 GM/DL Albumin 3.3 GM/DL Calcium Level 8.2 MG/DL Alkaline Phosphatase 64 U/L Aspartate Amino Transf (AST/SGOT) 7 U/L Alanine Aminotransferase (ALT/SGPT) 16 U/L Total Bilirubin 0.6 MG/DL Sodium Level 133 MEQ/L Potassium Level 4.3 MEQ/L Chloride Level 98 MEQ/L Carbon Dioxide Level 27.4 MEQ/L Anion Gap 8 MEQ/L Estimat Glomerular Filtration Rate 33 ML/MIN Lactic Acid Level 0.8 mmol/L Urine Color YELLOW Urine Turbidity SLIGHT Urine pH 6.0 Urine Specific [place] 1.020 Urine Protein 100 mg/dL Urine Glucose (UA) 250 mg/dL Urine Ketones NEG mg/dL Urine Occult Blood TRACE Urine Nitrite NEG Urine Bilirubin NEG Urine Leukocyte Esterase NEG Urine RBC 0-3 /hpf Urine WBC 0-2 /hpf Urine Squamous Epithelial Cells 0-5 /hpf Urine Granular Casts 10-15 /lpf Urine Fine Granular Casts 3-5 /lpf Microscopic Urinalysis Comment CATH-CULT NOT IND MDM Medical Decision Making Medical Screen Exam Complete: Yes Emergency Medical Condition: Yes Medical Record Reviewed: Yes Differential Diagnosis Sepsis, UTI, pneumonia, influenza, viral illness Narrative Course 8:34 PM patient has been started on sepsis protocol with the labs and fluid. Influenza test has been ordered. Awaiting for blood test results. I gave her Tylenol for the fever. 9:43 PM blood test results are back. Patient has significant leukocytosis that' s worse than the last one on the record. Chemistry is back and glucose is slightly elevated but lactic acid is within normal limits. Patient has renal insufficiency similar to her kidney function in the past. I do not have a source for her infection. Her influenza was negative. Given her clinical dehydration status and fever I would prefer to start her on antibiotic and admit her at least for 24 hours till her oncologist Dr. Payne has seen her and made further recommendations. I spoke with the hospitalist and she is agreeable to this plan. Procedures EKG Prior to Arrival: No Sepsis Criteria SIRS Criteria (2 or more): Temp > 100.9 or < 96.8, WBC > 68118, < 4000 or > 10 % bands Diagnosis Primary Impression: SIRS (systemic inflammatory response syndrome) Additional Impressions: CLL (chronic lymphocytic leukemia) Dehydration Admitting Information Admitting Physician Requests: Observation Mandy Quick MD Sep 09, 2017 20:08
[2017-09-09] MEDS ORDERED: SODIUM CHLOR 0.9% 1000 ML INJ 800 ML IV ONE (20:17)
[2017-09-09] MEDS ORDERED: SODIUM CHLOR 0.9% 1000 ML INJ 1,000 ML IV ONE (20:17)
[2017-09-09] MEDS ORDERED: ACETAMINOPHEN 650 MG SUPP RECTAL ONE (20:30)
[2017-09-09 20:40] LABS: HEMATOCRIT 24.5 % (35.0-46.0); MEAN CELL VOLUME 93.2 FL (80.0-100.0); MEAN CORPUSCULAR HEMOGLOBIN 32.5 PG (27.0-34.0); MEAN CORPUSCULAR HGB CONC 34.9 % (32.0-36.0); PLATELET COUNT 98 TH/MM3 (150-450); RED BLOOD COUNT 2.63 MIL/MM3 (4.00-5.30); RED CELL DISTRIBUTION WIDTH 15.7 % (11.6-17.2); WHITE BLOOD COUNT 77.7 TH/MM3 (4.0-11.0)
[2017-09-09 20:49] LABS: CHLORIDE 98 MEQ/L (98-107); HEMO FLAGS AUTO DIFF; POTASSIUM 4.3 MEQ/L (3.5-5.1); SODIUM (NA) 133 MEQ/L (136-145)
[2017-09-09 20:50] VITALS: BP 132/45; PULSE 81; RESP 20; O2SAT 97
[2017-09-09 20:53] LABS: ANION GAP 8 MEQ/L (5-15); BICARBONATE 27.4 MEQ/L (21.0-32.0); BLOOD UREA NITROGEN 25 MG/DL (7-18)
[2017-09-09 20:55] LABS: ALT (GPT) 16 U/L (10-53)
[2017-09-09 20:56] LABS: AST (GOT) 7 U/L (15-37); GLOMERULAR FILTRATION RATE 33 ML/MIN (>89)
[2017-09-09 20:57] LABS: TOTAL BILIRUBIN ADULT 0.6 MG/DL (0.2-1.0)
[2017-09-09 20:58] LABS: ALKALINE PHOSPHATASE 64 U/L (45-117)
[2017-09-09 21:15] VITALS: BP 132/45; PULSE 86; RESP 20; O2SAT 98
[2017-09-09 21:23] LABS: BLOOD, URINE TRACE (NEG); GLUCOSE,URINE 250 mg/dL (NEG); KETONE, URINE NEG (NEG); NITRITE,URINE NEG (NEG)
[2017-09-09 21:29] LABS: NEUTROPHIL # MANUAL DIFF 3.1 TH/MM3 (1.8-7.7); PLATELET ESTIMATE SMEAR LOW (NORMAL); PLATELET MORPHOLOGY NORMAL (NORMAL); POLYS (SEG NEUTROPHILS) 4 % (16-70); SCAN/DIFF FINAL DIFF MANUAL; WBC DIFF SAMPLE 100
[2017-09-09 21:37] LABS: URINE COLOR YELLOW (YELLW/STRAW)
[2017-09-09 21:39] LABS: RBC, URINE 0-3 /hpf (0-3); WBC, URINE 0-2 /hpf (0-5)
[2017-09-09 21:40] LABS: COMMENT (UR) CATH-CULT NOT IND; CULTURE IF INDICATED CATH CULTURE NOT IND; SQUAMOUS EPITHELIAL CELL URINE 0-5 /hpf (0-5)
[2017-09-09] MEDS ORDERED: ESCI20TA PO (21:44)
[2017-09-09] MEDS ORDERED: IBRU1CAP (21:44)
[2017-09-09] MEDS ORDERED: VANCOMYCIN INJ 1,000 MG in SODIUM CHLOR 0.9% 250 ML INJ 250 ML IV ONE ×2 (21:45→23:45)
[2017-09-09] MEDS ORDERED: Vancomycin Consult Pharmacy 1 EA OTHER SCH (21:45)
[2017-09-09] MEDS ORDERED: CEFEPIME INJ 2,000 MG in SODIUM CHLORIDE 0.9% INJ 100 ML IV ONE (21:45)
--- NOTE | 2017-09-09 21:47 | RADRPT ---
EXAM DATE/TIME: 09/09/2017 20:28 [facility] COMPARISON: CHEST SINGLE AP, May 28, 2017, 23:52. INDICATIONS : Shortness of breath. MEDICAL HISTORY : Hypertension. SURGICAL HISTORY : None. ENCOUNTER: Initial ACUITY: 1 day PAIN SCORE: 0/10 LOCATION: Bilateral chest FINDINGS: A single view of the chest demonstrates the lungs to be symmetrically aerated without evidence of mas s, infiltrate or effusion. The cardiomediastinal contours are unremarkable. Osseous structures are intact. Clips are seen in the right upper quadrant of the abdomen. CONCLUSION: Normal examination. Vishnu Westfall MD on September 09, 2017 at 21:45 Board Certified Radiologist. This report was verified electronically.
[2017-09-09] MEDS: ENOXAPARIN SODIUM 30 MG/0.3 ML SYRINGE SQ SCH (22:00)
[2017-09-09] MEDS ORDERED: SENNOSIDES 8.6 MG TAB PO PRN (22:00)
[2017-09-09] MEDS ORDERED: ONDANSETRON HCL 4 MG/2 ML VIAL IVP PRN (22:00)
[2017-09-09] MEDS ORDERED: BISACODYL 10 MG SUPP RECTAL PRN (22:00)
[2017-09-09] MEDS ORDERED: SODIUM CHLORIDE 0.9% FLUSH 10 ML FLUSH IV FLUSH PRN (22:00)
[2017-09-09] MEDS ORDERED: LACTULOSE SYRUP 20 GM/30 ML CUP PO PRN (22:00)
[2017-09-09] MEDS ORDERED: NALOXONE HCL 0.4 MG/ML AMP IV PUSH PRN (22:00)
[2017-09-09 22:12] VITALS: BP 142/71; PULSE 80; RESP 20; TEMP 99.8; O2SAT 99
[2017-09-09] MEDS ORDERED: INSULIN DETEMIR 100 UNITS/ML VIAL SQ ONE (23:00)
[2017-09-09 23:30] VITALS: BP 141/56
[2017-09-10] VITALS: BP 145/65; PULSE 85; RESP 18; TEMP 97.9; O2SAT 100
[2017-09-10] MEDS: SODIUM CHLOR 0.9% 1000 ML INJ 1,000 ML IV SCH ×2 (00:12→12:26)
[2017-09-10 06:39] LABS: AUTOMATED NEUTROPHIL # 4.7 TH/MM3 (1.8-7.7); HEMATOCRIT 21.9 % (35.0-46.0); LYMPH % 75.5 % (9.0-44.0); LYMPHOCYTE # 61.6 TH/MM3 (1.0-4.8); MEAN CELL VOLUME 92.7 FL (80.0-100.0); MEAN CORPUSCULAR HEMOGLOBIN 30.7 PG (27.0-34.0); MEAN CORPUSCULAR HGB CONC 33.2 % (32.0-36.0); MONO % 18.7 % (0.0-8.0); NEUT % 5.8 % (16.0-70.0); PLATELET COUNT 96 TH/MM3 (150-450); RED BLOOD COUNT 2.36 MIL/MM3 (4.00-5.30); WHITE BLOOD COUNT 81.5 TH/MM3 (4.0-11.0)
[2017-09-10 06:42] LABS: HEMO FLAGS AUTO DIFF
[2017-09-10 06:46] LABS: POTASSIUM 3.8 MEQ/L (3.5-5.1)
[2017-09-10 06:49] LABS: BICARBONATE 25.7 MEQ/L (21.0-32.0)
[2017-09-10 07:15] LABS: BANDS 1 % (0-6); NEUTROPHIL # MANUAL DIFF 4.1 TH/MM3 (1.8-7.7); PLATELET ESTIMATE SMEAR LOW (NORMAL); PLATELET MORPHOLOGY NORMAL (NORMAL); POLYS (SEG NEUTROPHILS) 4 % (16-70); WBC DIFF SAMPLE 100
[2017-09-10 07:16] LABS: SCAN/DIFF FINAL DIFF MANUAL
[2017-09-10 08:00] VITALS: BP_SYST 167; PULSE 84; RESP 18; TEMP 97.7; O2SAT 97
[2017-09-10 08:15] VITALS: BP 167/68
[2017-09-10] MEDS: SODIUM CHLORIDE 0.9% FLUSH 10 ML FLUSH IV FLUSH SCH ×2 (09:00→21:00)
[2017-09-10] MEDS: DOCUSATE SODIUM 50 MG/SENNA 8.6 MG TAB PO SCH ×2 (09:27→21:20)
[2017-09-10] MEDS: ESCITALOPRAM OXALATE 20 MG TAB PO SCH (09:27)
[2017-09-10] MEDS: GABAPENTIN 100 MG CAP PO SCH ×3 (09:27→18:47)
[2017-09-10] MEDS ORDERED: DEXTROSE 50% IN WATER 50 ML VIAL(D50) IV PUSH PRN (09:30)
[2017-09-10] MEDS ORDERED: GLUCAGON 1 MG/ML VIAL OTHER PRN (09:30)
[2017-09-10] MEDS ORDERED: VANCOMYCIN INJ 1,000 MG in SODIUM CHLOR 0.9% 250 ML INJ 250 ML IV SCH (10:00)
[2017-09-10] MEDS: INSULIN ASPART SUPPLEMENTAL SCALE SQ SCH ×3 (11:25→21:00)
[2017-09-10 12:00] VITALS: BP 135/59; PULSE 80; RESP 18; TEMP 97.8; O2SAT 99
[2017-09-10 16:00] VITALS: BP 146/72; PULSE 85; RESP 18; O2SAT 99
--- NOTE | 2017-09-10 18:39 | MB ---
cc: JESICA LEE,ATTILA Michael MD DATE OF : 1930 DATE OF CONSULTATION: 09/10/2017 REFERRING PHYSICIAN: Dr. Devika Quick CHIEF COMPLAINT: Dr. Quick requested consultation for Ms. Scott regarding chronic lymphocytic leukemia. HISTORY OF PRESENT ILLNESS Mrs. Scott is an 87-year-old woman well-known patient to Dr. Ernie Payne. She was last seen by Dr. Payne on August 27, 2017. She has had deteriorating health over the last several years. She has progressive renal failure, dementia, and chronic lymphocytic leukemia with loss of 17p. She was on ibrutinib and it was held due to nausea and vomiting, and deteriorating renal function. However ibrutinib is not associated with renal deterioration. Her course is complicated by slow weight loss. She has a small mass in the left breast. She is complaining of left upper quadrant pain associated with her splenomegaly. She was placed back on ibrutinib by Dr. Payne on her last visit 08/27/17. Presumably she has been on it for over a week at the time of her presentation in ER. She presented to the emergency room granddaughter and daughter. She was refusing to eat and not feeling well. She was febrile. Her white count is elevated and interpreted to be a progression of CLL. White count is higher than her baseline. White count in the 50,000 range is predominantly lymphocytes. She is not neutropenic with absolute neutrophil count that is high. The neutrophil percentage, however, is low at 4%. During her hospitalization she was noted to have a decrease in hemoglobin probably from being clinically dry post hydration. Her platelet count has decreased from her baseline attributed to the ibrutinib. Ibrutinib is noted to also cause some fever. It did not seem to be her side effect from previous ibrutinib treatment. Her cultures are negative so far. She states that she is eating well between last night and this morning. She denies any nausea or vomiting. No chest pain or shortness of breath. She offers that her . She described that her daughter and granddaughter came to move in with her to help with the care of her . PAST MEDICAL HISTORY: 1. Dementia. 2. Arthritis. 3. Chronic lymphocytic leukemia. 4. Cardiovascular disease. 5. Hiatal hernia. 6. Hypertension. 7. Gastroesophageal reflux. 8. Hypothyroidism. PAST SURGICAL HISTORY: 1. Cholecystectomy. 2. Appendectomy. 3. Hysterectomy. SOCIAL HISTORY: Denies any tobacco, alcohol or illicit drug use. She is , lives with her daughter and granddaughter. FAMILY HISTORY: Noncontributory. ALLERGIES: No known allergies. CURRENT MEDICATIONS: 1. Lasix. 2. Tylenol. 3. Benadryl. 4. Vancomycin. 5. Cefepime. 6. Levimir. 7. Lexapro. 8. Ade-Colace 9. Neurontin. 10. Enoxaparin PHYSICAL EXAMINATION: VITAL SIGNS: Temperature 97.8, heart rate 80, respiratory rate 18, blood pressure 135/59. GENERAL: Ms. Scott is a well-developed, well-nourished elderly woman who is awake, alert, oriented. She is pleasant and cooperative. Her pupils are round, reactive to light and accommodation. Oropharynx is clear. Neck: Supple. Lungs: Clear. Cardiovascular: Exam reveals normal rate and rhythm. Abdomen is distended. Splenomegaly is appreciated, fullness in the left upper quadrant. Extremities: Lower extremity with no edema. Neurological: Exam is nonfocal. She moves all four extremities. LABORATORY DATA Significant for BUN of 23, creatinine 1.2, calcium is decreased to 7.8. White blood cell count 81,000, hemoglobin of 7.3, platelet count 96,000. Lymphocyte percentage 75%. ASSESSMENT/PLAN Ms. Scott is an 87-year-old woman with multiple medical problems described above. She has chronic lymphocytic leukemia and was recently replaced back on ibrutinib. Discussed the case with the primary team and nursing. Ibrutinib tends to increase the white blood cell count. Notably the white blood cell count increases predominantly in lymphocytes. She is not neutropenic. She has been afebrile after starting antibiotic therapy. Her cultures have been negative so far and will be followed. No localizing sign of infection. Although ibrutinib can cause fevers, it has not been her course to have fever. We discussed initiating ibrutinib tomorrow when her family brings her pills. We will monitor toxicity associated to the medication. We will observe her in the hospital. She was offered transfusion, a unit of packed red cells in the morning if her hemoglobin is less than 7.3. We will coordinate the transfusion pending the lab. No specific therapy is required for the thrombocytopenia. Her renal insufficiency appears to be improving. She seems to be eating better. Her questions were answered to her satisfaction. MD SANTIAGO Alvarado/PRABHAKAR /5:41 PM /6:07 PM MTDJohn
--- NOTE | 2017-09-10 18:48 | HHI.HP ---
[facility] João Finnegan MD Admission Diagnosis SIRS, dehydration, CLL Diagnoses: Travel History International Travel<30 Days: No Contact w/Intl Traveler <30 Da: No Traveled to Known Affected Are: No History of Present Illness This is a pleasant 87-year-old female with past medical history of dementia and CLL who is brought into the emergency room last night for evaluation of fever and poor by mouth intake. Patient has dementia and is unable to provide history. History was obtained from reviewing the patient's chart and discussing with oncology Dr. Whatley. Patient herself denies pain shortness of breath. She is not sure why she was brought into the hospital. She is currently eating dinner. Patient's primary oncologist is Dr. Payne. Patient was started/resumed on ibrutinib last week. Review of Systems ROS Limitations: Other (unobtainable/unreliable due to patient's dementia) Past Family Social History Past Medical History CLL Dementia History of CVA Type 2 diabetes with neuropathy Hypothyroidism B-12 deficiency Seizures as a child Benign colon polyps Past Surgical History Appendectomy Cholecystectomy Right hip repair Hernia repair Hysterectomy Allergies: Coded Allergies: No Known Allergies (Unverified Allergy, Unknown, 09/09/17) Family History Reviewed and noncontributory Social History No alcohol tobacco or drug use Physical Exam Vital Signs Vital Signs Date Time Temp Pulse Resp B/P (MAP) Pulse Ox O2 Delivery O2 Flow Rate FiO2 09/10/17 16:00 85 18 146/72 (96) 99 09/10/17 12:00 97.8 80 18 135/59 (84) 99 09/10/17 08:15 167/68 (101) 09/10/17 08:00 97.7 84 18 97 09/10/17 00:00 97.9 85 18 145/65 (91) 100 09/09/17 23:30 85 20 141/56 (84) 98 09/09/17 22:12 99.8 80 20 142/71 (94) 99 Nasal Cannula 2.00 09/09/17 22:00 20 09/09/17 21:26 83 20 99 Nasal Cannula 2.00 09/09/17 21:15 86 20 132/45 (74) 98 09/09/17 20:50 95 2.00 09/09/17 20:50 81 20 132/45 (74) 97 Nasal Cannula 2.00 09/09/17 19:21 101.5 90 18 155/68 (97) Physical Exam GENERAL: This is a well-nourished, well-developed patient, in no apparent distress. SKIN: No rashes, ecchymoses or lesions. Cool and dry. HEAD: Atraumatic. Normocephalic. No temporal or scalp tenderness. EYES: Pupils equal round and reactive. Extraocular motions intact. No scleral icterus. No injection or drainage. ENT: Nose without bleeding, purulent drainage or septal hematoma. Throat without erythema, tonsillar hypertrophy or exudate. Uvula midline. Airway patent. NECK: Trachea midline. No JVD or lymphadenopathy. Supple, nontender, no meningeal signs. CARDIOVASCULAR: Regular rate and rhythm without murmurs, gallops, or rubs. RESPIRATORY: Clear to auscultation. Breath sounds equal bilaterally. No wheezes , rales, or rhonchi. GASTROINTESTINAL: Abdomen soft, non-tender, nondistended. No hepato-splenomegaly , or palpable masses. No guarding. MUSCULOSKELETAL: Extremities without clubbing, cyanosis, or edema. No joint tenderness, effusion, or edema noted. No calf tenderness. Negative Homans sign bilaterally. NEUROLOGICAL: Awake and alert. Cranial nerves II through XII intact. Motor and sensory grossly within normal limits. Five out of 5 muscle strength in all muscle groups. Normal speech. Laboratory Laboratory Tests Test 09/09/17 20:25 09/09/17 20:55 09/10/17 06:07 White Blood Count 77.7 81.5 Red Blood Count 2.63 2.36 Hemoglobin 8.6 7.3 Hematocrit 24.5 21.9 Mean Corpuscular Volume 93.2 92.7 Mean Corpuscular Hemoglobin 32.5 30.7 Mean Corpuscular Hemoglobin Concent 34.9 33.2 Red Cell Distribution Width 15.7 15.0 Platelet Count 98 96 Mean Platelet Volume 7.4 7.6 CBC Comment AUTO DIFF AUTO DIFF Differential Total Cells Counted 100 100 Neutrophils % (Manual) 4 4 Lymphocytes % 96 94 Neutrophils # (Manual) 3.1 4.1 Differential Comment FINAL DIFF MANUAL FINAL DIFF MANUAL Platelet Estimate LOW LOW Platelet Morphology Comment NORMAL NORMAL Red Cell Morphology Comment NORMAL Blood Urea Nitrogen 25 23 Creatinine 1.50 1.20 Random Glucose 234 78 Total Protein 6.9 Albumin 3.3 Calcium Level 8.2 7.8 Alkaline Phosphatase 64 Aspartate Amino Transf (AST/SGOT) 7 Alanine Aminotransferase (ALT/SGPT) 16 Total Bilirubin 0.6 Sodium Level 133 137 Potassium Level 4.3 3.8 Chloride Level 98 103 Carbon Dioxide Level 27.4 25.7 Anion Gap 8 8 Estimat Glomerular Filtration Rate 33 43 Lactic Acid Level 0.8 Urine Color YELLOW Urine Turbidity SLIGHT Urine pH 6.0 Urine Specific [place] 1.020 Urine Protein 100 Urine Glucose (UA) 250 Urine Ketones NEG Urine Occult Blood TRACE Urine Nitrite NEG Urine Bilirubin NEG Urine Leukocyte Esterase NEG Urine RBC 0-3 Urine WBC 0-2 Urine Squamous Epithelial Cells 0-5 Urine Granular Casts 10-15 Urine Fine Granular Casts 3-5 Microscopic Urinalysis Comment CATH-CULT NOT IND Neutrophils (%) (Auto) 5.8 Lymphocytes (%) (Auto) 75.5 Monocytes (%) (Auto) 18.7 Eosinophils (%) (Auto) 0.0 Basophils (%) (Auto) 0.0 Neutrophils # (Auto) 4.7 Lymphocytes # (Auto) 61.6 Monocytes # (Auto) 15.2 Eosinophils # (Auto) 0.0 Basophils # (Auto) 0.0 Band Neutrophils % 1 Monocytes % 1 Date/Time Source Procedure Growth Status 09/09/17 21:10 Blood Peripheral Aerobic Blood Culture - Preliminary NO GROWTH IN 1 DAY Resulted 09/09/17 21:10 Blood Peripheral Anaerobic Blood Culture - Preliminary NO GROWTH IN 1 DAY Resulted 09/09/17 20:20 Nasal Aspirate Influenza Types A,B Antigen (MOLLY) - Final NEGATIVE FOR FLU A AND B ANTIGEN.... Complete Result Diagram: 09/10/1760609/10/17 06 Imaging Last Impressions Chest X-Ray 09/09/172016 Signed Impressions: Service Date/Time: Saturday, September 09, 2017 20:28 - CONCLUSION: Normal examination. MD Francia Estrada VTE Risk Assessment Caprini VTE Risk Assessment: Mod/High Risk (score >= 2) Caprini Risk Assessment Model Point Value = 1 Point Value = 2 Point Value = 3 Point Value = 5 Age 41-60 Minor surgery BMI > 25 kg/m2 Swollen legs Varicose veins or History of unexplained or recurrent spontaneous Oral contraceptives or hormone replacement Sepsis (< 1 month) Serious lung disease, including pneumonia (< 1 month) Abnormal pulmonary function Acute myocardial infarction Congestive heart failure (< 1 month) History of inflammatory bowel disease Medical patient at bed rest Age 61-74 Arthroscopic surgery Major open surgery (> 45 min) Laparoscopic surgery (> 45 min) Malignancy Confined to bed (> 72 hours) Immobilizing plaster cast Central venous access Age >= 75 History of VTE Family history of VTE Factor V Leiden Prothrombin [id number] Lupus anticoagulant Anticardiolipin antibodies Elevated serum homocysteine Heparin-induced thrombocytopenia Other congenital or acquired thrombophilia Stroke (< 1 month) Elective arthroplasty Hip, pelvis, or leg fracture Acute spinal cord injury (< 1 month) Prophylaxis Regimen Total Risk Factor Score Risk Level Prophylaxis Regimen 0-1 Low Early ambulation 2 Moderate Order ONE of the following: *Sequential Compression Device (SCD) *Heparin 5000 units SQ BID 3-4 Higher Order ONE of the following medications: *Heparin 5000 units SQ TID *Enoxaparin/Lovenox 40 mg SQ daily (WT < 150 kg, CrCl > 30 mL/min) *Enoxaparin/Lovenox 30 mg SQ daily (WT < 150 kg, CrCl > 10-29 mL/min) *Enoxaparin/Lovenox 30 mg SQ BID (WT < 150 kg, CrCl > 30 mL/min) AND/OR *Sequential Compression Device (SCD) 5 or more Highest Order ONE of the following medications: *Heparin 5000 units SQ TID (Preferred with Epidurals) *Enoxaparin/Lovenox 40 mg SQ daily (WT < 150 kg, CrCl > 30 mL/min) *Enoxaparin/Lovenox 30 mg SQ daily (WT < 150 kg, CrCl > 10-29 mL/min) *Enoxaparin/Lovenox 30 mg SQ BID (WT < 150 kg, CrCl > 30 mL/min) AND *Sequential Compression Device (SCD) Assessment and Plan Assessment and Plan -Fever, she was started on ibrutinib last week for the CLL. Apparently this can cause fever. It also causes initial elevation in white blood cell count. Urine chest x-ray blood cultures all negative to date. She is on vancomycin and cefepime. Patient appears clinically stable and is eating dinner. If blood cultures are negative at 48 hours tomorrow she can likely be discharged home. We'll discuss with family tomorrow. Appreciate oncology seeing the patient. 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 We'll repeat CBC tomorrow morning. Hemoglobin is 7.3 today. Dementia History of CVA Type 2 diabetes with neuropathy Hypothyroidism -Resume home medications as appropriate. DVT prophylaxis with Lovenox 30 mg subcutaneous. Mai Erwin MD Sep 10, 2017 18:48
[2017-09-10 20:00] VITALS: BP 148/58; PULSE 85; RESP 20; TEMP 98.5; O2SAT 97
[2017-09-10] MEDS: CEFEPIME INJ 2,000 MG in SODIUM CHLORIDE 0.9% INJ 100 ML IV SCH (21:20)
[2017-09-10] MEDS: INSULIN DETEMIR 100 UNITS/ML VIAL SQ SCH (21:21)
[2017-09-10] MEDS: ENOXAPARIN SODIUM 30 MG/0.3 ML SYRINGE SQ SCH (21:22)
[2017-09-10] MEDS: VANCOMYCIN INJ 750 MG in SODIUM CHLOR 0.9% 250 ML INJ 250 ML IV SCH (23:51)
[2017-09-11] VITALS: BP 137/63; PULSE 89; RESP 18; TEMP 98.3; O2SAT 95
[2017-09-11] MEDS: SODIUM CHLOR 0.9% 1000 ML INJ 1,000 ML IV SCH ×2 (02:59→16:39)
[2017-09-11 04:00] VITALS: BP 153/68; PULSE 80; RESP 20; TEMP 97.6; O2SAT 100
[2017-09-11 05:14] LABS: MEAN CELL VOLUME 94.4 FL (80.0-100.0); MEAN CORPUSCULAR HEMOGLOBIN 33.2 PG (27.0-34.0); MEAN CORPUSCULAR HGB CONC 35.2 % (32.0-36.0); PLATELET COUNT 82 TH/MM3 (150-450); RED BLOOD COUNT 2.16 MIL/MM3 (4.00-5.30); RED CELL DISTRIBUTION WIDTH 15.9 % (11.6-17.2); WHITE BLOOD COUNT 84.1 TH/MM3 (4.0-11.0)
[2017-09-11 05:42] LABS: HEMO FLAGS AUTO DIFF
[2017-09-11 05:47] LABS: HEMATOCRIT 20.4 % (35.0-46.0)
[2017-09-11 07:37] LABS: BANDS 1 % (0-6); NEUTROPHIL # MANUAL DIFF 4.2 TH/MM3 (1.8-7.7); PLATELET ESTIMATE SMEAR LOW (NORMAL); PLATELET MORPHOLOGY NORMAL (NORMAL); POLYS (SEG NEUTROPHILS) 4 % (16-70); SCAN/DIFF FINAL DIFF MANUAL; WBC DIFF SAMPLE 100
[2017-09-11 08:00] VITALS: BP 171/70; PULSE 77; RESP 18; TEMP 98.7; O2SAT 96
[2017-09-11] MEDS ORDERED: diphenhydrAMINE HCL 25 MG CAP PO PRN (08:00)
[2017-09-11] MEDS ORDERED: ACETAMINOPHEN 325 MG TAB PO PRN (08:00)
[2017-09-11] MEDS: INSULIN ASPART SUPPLEMENTAL SCALE SQ SCH ×4 (08:00→21:20)
[2017-09-11] MEDS ORDERED: IBRUTINIB 140 MG PO SCH (09:00)
[2017-09-11] MEDS: SODIUM CHLORIDE 0.9% FLUSH 10 ML FLUSH IV FLUSH SCH ×2 (09:00→21:21)
[2017-09-11] MEDS: IBRUTINIB 140 MG PO SCH (09:36)
[2017-09-11] MEDS: FUROSEMIDE 20 MG TAB PO SCH (09:38)
[2017-09-11] MEDS: ESCITALOPRAM OXALATE 20 MG TAB PO SCH (09:38)
[2017-09-11] MEDS: GABAPENTIN 100 MG CAP PO SCH ×3 (09:38→17:53)
[2017-09-11] MEDS: DOCUSATE SODIUM 50 MG/SENNA 8.6 MG TAB PO SCH ×2 (09:38→21:19)
--- NOTE | 2017-09-11 10:05 | HHI.PR ---
Subjective Remarks Patient has no complaints this morning. She has been afebrile. Objective Vitals Vital Signs Date Time Temp Pulse Resp B/P (MAP) Pulse Ox O2 Delivery O2 Flow Rate FiO2 09/11/17 04:00 97.6 80 20 153/68 (96) 100 09/11/17 00:00 98.3 89 18 137/63 (87) 95 09/10/17 20:00 97 Nasal Cannula 2.00 09/10/17 20:00 98.5 85 20 148/58 (88) 97 09/10/17 16:00 85 18 146/72 (96) 99 09/10/17 12:00 97.8 80 18 135/59 (84) 99 I/O 09/10/17 09/10/17 09/10/17 09/11/17 09/11/17 09/11/17 07:00 15:00 23:00 07:00 15:00 23:00 Intake Total 971 ml 435 ml 1390 ml 120 ml Output Total 650 ml Balance 971 ml 435 ml 740 ml 120 ml Intake Oral 280 ml 480 ml 120 ml IV Total 691 ml 435 ml 910 ml Output Urine Total 650 ml # Voids 2 1 3 3 # Bowel Movements 0 0 Result Diagram: 09/11/175 09/11/17 041 Objective Remarks GENERAL: Well-nourished, well-developed petite elderly female patient. SKIN: Warm and dry. HEAD: Normocephalic. EYES: No scleral icterus. No injection or drainage. NECK: Supple, trachea midline. No JVD or lymphadenopathy. CARDIOVASCULAR: Regular rate and rhythm without murmurs, gallops, or rubs. RESPIRATORY: Breath sounds equal bilaterally. No accessory muscle use. GASTROINTESTINAL: Abdomen soft, non-tender, nondistended. EXTREMITIES: No cyanosis, or edema. NEUROLOGICAL: Awake, alert, and oriented to self only. Non-focal. A/P Assessment and Plan -Fever, she was started on ibrutinib last week for the CLL. Apparently this can cause fever. It also causes initial elevation in white blood cell count. Urine chest x-ray blood cultures all negative to date. She is on vancomycin and cefepime. Patient appears clinically stable and is eating well. If blood cultures are negative at 48 hours tomorrow she can likely be discharged home today. Appreciate oncology seeing the patient. 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 Hemoglobin is 7.1 today. We'll transfuse 1 unit packed red blood cells. Discussed with Dr. Whatley. Dementia History of CVA Type 2 diabetes with neuropathy Hypothyroidism -Resume home medications as appropriate. DVT prophylaxis with Lovenox 30 mg subcutaneous. Mai Erwin MD Sep 11, 2017 10:05
--- NOTE | 2017-09-11 10:06 | HHI.FF ---
Face to Face Verification Diagnosis: (1) CLL (chronic lymphocytic leukemia) (2) Generalized weakness Physical Therapy Order: Evaluate and Treat Home Health Nursing Order: Medical education Nursing assessment with vital signs I have seen patient Maya Scott on 09/11/17. My clinical findings support the need for the requested home health care services because: Ltd mobility - disease progression Impaired cognition/judgement I certify that my clinical findings support that this patient is homebound because: Unsteady gait/balance Need for psychosocial assistance Mai Erwin MD Sep 11, 2017 10:06
[2017-09-11 12:00] VITALS: BP 141/63; PULSE 81; RESP 18; TEMP 97; O2SAT 96
[2017-09-11] MEDS: MAGNESIUM HYDROXIDE SUSP 30 ML CUP PO PRN (15:24)
[2017-09-11 16:00] VITALS: BP 133/60; PULSE 82; RESP 18; TEMP 97; O2SAT 96
--- NOTE | 2017-09-11 17:16 | PD.ONC.PN ---
Subjective Subjective Remarks no more fevers Hungry weak and tired Objective Data Date Time Temp Pulse Resp B/P (MAP) Pulse Ox O2 Delivery O2 Flow Rate FiO2 09/11/17 08:15 Room Air 09/11/17 08:00 98.7 77 18 171/70 (103) 96 09/11/17 04:00 97.6 80 20 153/68 (96) 100 09/11/17 00:00 98.3 89 18 137/63 (87) 95 09/10/17 20:00 97 Nasal Cannula 2.00 09/10/17 20:00 98.5 85 20 148/58 (88) 97 09/11/17 09/11/17 09/11/17 07:00 15:00 23:00 Intake Total 120 ml Balance 120 ml Result Diagram: 09/11/17 0415 09/11/17 0415 Laboratory Results Laboratory Tests Test 09/11/17 04:15 09/11/17 12:00 White Blood Count 84.1 TH/MM3 Red Blood Count 2.16 MIL/MM3 Hemoglobin 7.2 GM/DL Hematocrit 20.4 % Mean Corpuscular Volume 94.4 FL Mean Corpuscular Hemoglobin 33.2 PG Mean Corpuscular Hemoglobin Concent 35.2 % Red Cell Distribution Width 15.9 % Platelet Count 82 TH/MM3 Mean Platelet Volume 7.8 FL CBC Comment AUTO DIFF Differential Total Cells Counted 100 Neutrophils % (Manual) 4 % Band Neutrophils % 1 % Lymphocytes % 95 % Neutrophils # (Manual) 4.2 TH/MM3 Differential Comment FINAL DIFF MANUAL Platelet Estimate LOW Platelet Morphology Comment NORMAL Creatinine 1.30 MG/DL Estimat Glomerular Filtration Rate 39 ML/MIN Culture Results Microbiology Date/Time Source Procedure Growth Status 09/09/17 21:10 Blood Peripheral Aerobic Blood Culture - Preliminary NO GROWTH IN 2 DAYS Resulted 09/09/17 21:10 Blood Peripheral Anaerobic Blood Culture - Preliminary NO GROWTH IN 2 DAYS Resulted 09/09/17 20:25 Blood Peripheral Aerobic Blood Culture - Preliminary NO GROWTH IN 2 DAYS Resulted 09/09/17 20:25 Blood Peripheral Anaerobic Blood Culture - Preliminary NO GROWTH IN 2 DAYS Resulted 09/09/17 20:20 Nasal Aspirate Influenza Types A,B Antigen (MOLLY) - Final NEGATIVE FOR FLU A AND B ANTIGEN.... Complete Administered Medications Medications (Trade) Dose Ordered Sig/Katie Route PRN Reason Start Time Stop Time Status Last Admin Dose Admin Cefepime HCl 2000 mg/Sodium Chloride 100 ml @ 200 mls/hr Q24H IV 09/10/17 22:00 09/10/17 21:20 Sodium Chloride 1,000 ml @ 70 mls/hr [id number] IV 09/09/17 21:45 09/11/17 02:59 Senna/Docusate Sodium (Ade-Colace) 1 tab BID PO 09/10/17 09:00 09/11/17 09:38 Magnesium Hydroxide (Milk Of Kamilla Kaminski) 30 ml Q12H PRN PO Mild constipation 09/09/17 22:00 09/11/17 15:24 Escitalopram Oxalate (Lexapro) 40 mg DAILY PO 09/10/17 09:00 09/11/17 09:38 Furosemide (Lasix) 10 mg EVERY OTHER DAY PO 09/11/17 09:00 09/11/17 09:38 Gabapentin (Neurontin) 100 mg TID PO 09/10/17 09:00 09/11/17 13:31 Insulin Detemir (Levemir Inj) 20 units HS SQ 09/10/17 21:00 09/10/17 21:21 Vancomycin HCl 750 mg/Sodium Chloride 257.5 ml @ 250 mls/hr Q24H IV 09/11/17 00:00 09/10/17 23:51 Patient Own Medication Ibrutinib 140mg capsu... DAILY PO 09/11/17 09:00 09/11/17 09:36 Objective Remarks GENERAL: Elderly patient. SKIN: Warm and dry. HEAD: Normocephalic. EYES: No scleral icterus. No injection or drainage. NECK: Supple, trachea midline. No JVD or lymphadenopathy. LYMPHATIC: No adenopathy. CARDIOVASCULAR: Regular rate and rhythm without murmurs. RESPIRATORY: Breath sounds equal bilaterally. No accessory muscle use. GASTROINTESTINAL: Abdomen soft, non-tender, nondistended. EXTREMITIES: No cyanosis, or edema. MUSCULOSKELETAL: Adequate muscle tone. NEUROLOGICAL: No obvious focal deficit. Awake, alert, and oriented x3. PSYCHIATRIC: Appropriate mood and affect; insight and judgment normal. Assessment/Plan Problem List: (1) CLL (chronic lymphocytic leukemia) ICD Codes: C91.10 - Chronic lymphocytic leukemia Status: Chronic Plan: -leucocytosis with lymphocytosis due to CLL and Imbruvica -Plat are low but no Tx needed. -anemia from CLL. Has antibodies. will have blood tomorrow for TX. - Pt is now back on Imbruvica( Daughter brought from home) - D/W RN and Dr Lyles. - After Tx tomorrow she can be d/c Lexi Obando MD Sep 11, 2017 17:15
[2017-09-11 20:00] VITALS: BP 125/51; PULSE 89; RESP 16; TEMP 98.2; O2SAT 96
[2017-09-11] MEDS: INSULIN DETEMIR 100 UNITS/ML VIAL SQ SCH (21:19)
[2017-09-11] MEDS: ENOXAPARIN SODIUM 30 MG/0.3 ML SYRINGE SQ SCH (21:21)
[2017-09-11] MEDS: CEFEPIME INJ 2,000 MG in SODIUM CHLORIDE 0.9% INJ 100 ML IV SCH (21:21)
[2017-09-12] VITALS (7 sets, daily range): BP systolic 133–163; BP diastolic 60–76; PULSE 76–96; RESP 18–20; TEMP 96.7–99.8; O2SAT 94–99
[2017-09-12] MEDS: VANCOMYCIN INJ 750 MG in SODIUM CHLOR 0.9% 250 ML INJ 250 ML IV SCH (00:21)
[2017-09-12] MEDS: SODIUM CHLOR 0.9% 1000 ML INJ 1,000 ML IV SCH (04:30)
[2017-09-12] MEDS: INSULIN ASPART SUPPLEMENTAL SCALE SQ SCH ×3 (08:00→21:15)
[2017-09-12] MEDS: SODIUM CHLORIDE 0.9% FLUSH 10 ML FLUSH IV FLUSH SCH ×2 (08:43→21:15)
[2017-09-12] MEDS: DOCUSATE SODIUM 50 MG/SENNA 8.6 MG TAB PO SCH ×2 (08:59→21:14)
[2017-09-12] MEDS: GABAPENTIN 100 MG CAP PO SCH ×3 (08:59→16:32)
[2017-09-12] MEDS: ESCITALOPRAM OXALATE 20 MG TAB PO SCH (08:59)
[2017-09-12] MEDS: IBRUTINIB 140 MG PO SCH ×2 (08:59→09:00)
--- NOTE | 2017-09-12 11:39 | HHI.DS ---
Discharge Summary Admission Date Sep 10, 2017 at 15:36 Discharge Date: Sep 12, 2017 Admitting Diagnosis SIRS, dehydration, CLL (1) SIRS (systemic inflammatory response syndrome) ICD Code: R65.10 - Systemic inflammatory response syndrome (SIRS) of non- infectious origin without acute organ dysfunction Diagnosis: Principal Status: Resolved (2) CLL (chronic lymphocytic leukemia) ICD Code: C91.10 - Chronic lymphocytic leukemia Status: Chronic (3) Generalized weakness ICD Code: R53.1 - Weakness Status: Acute (4) Dehydration ICD Code: E86.0 - Dehydration Status: Resolved (5) Dementia ICD Code: F03.90 - Unspecified dementia without behavioral disturbance Status: Chronic (6) Anemia ICD Code: D64.9 - Anemia, unspecified Status: Chronic (7) Diabetes mellitus ICD Code: E11.9 - Type 2 diabetes mellitus without complications Status: Chronic (8) CKD (chronic kidney disease), stage III ICD Code: N18.3 - Chronic kidney disease, stage 3 (moderate) Status: Chronic Procedures None Brief History - From Admission This is a pleasant 87-year-old female with past medical history of dementia and CLL who is brought into the emergency room last night for evaluation of fever and poor by mouth intake. Patient has dementia and is unable to provide history. History was obtained from reviewing the patient's chart and discussing with oncology Dr. Whatley. Patient herself denies pain shortness of breath. She is not sure why she was brought into the hospital. She is currently eating dinner. Patient's primary oncologist is Dr. Payne. Patient was started/resumed on ibrutinib last week. CBC/BMP: 09/11/17 0415 09/12/17 0610 Significant Findings Laboratory Tests Test 09/09/17 20:25 09/09/17 20:55 09/10/17 06:07 09/11/17 04:15 White Blood Count 77.7 TH/MM3 (4.0-11.0) 81.5 TH/MM3 (4.0-11.0) 84.1 TH/MM3 (4.0-11.0) Red Blood Count 2.63 MIL/MM3 (4.00-5.30) 2.36 MIL/MM3 (4.00-5.30) 2.16 MIL/MM3 (4.00-5.30) Hemoglobin 8.6 GM/DL (11.6-15.3) 7.3 GM/DL (11.6-15.3) 7.2 GM/DL (11.6-15.3) Hematocrit 24.5 % (35.0-46.0) 21.9 % (35.0-46.0) 20.4 % (35.0-46.0) Platelet Count 98 TH/MM3 (150-450) 96 TH/MM3 (150-450) 82 TH/MM3 (150-450) Neutrophils % (Manual) 4 % (16-70) 4 % (16-70) 4 % (16-70) Lymphocytes % 96 % (9-44) 94 % (9-44) 95 % (9-44) Platelet Estimate LOW (NORMAL) LOW (NORMAL) LOW (NORMAL) Blood Urea Nitrogen 25 MG/DL (7-18) 23 MG/DL (7-18) Creatinine 1.50 MG/DL (0.50-1.00) 1.20 MG/DL (0.50-1.00) 1.30 MG/DL (0.50-1.00) Random Glucose 234 MG/DL (74-106) Albumin 3.3 GM/DL (3.4-5.0) Calcium Level 8.2 MG/DL (8.5-10.1) 7.8 MG/DL (8.5-10.1) Aspartate Amino Transf (AST/SGOT) 7 U/L (15-37) Sodium Level 133 MEQ/L (136-145) Estimat Glomerular Filtration Rate 33 ML/MIN (>89) 43 ML/MIN (>89) 39 ML/MIN (>89) Urine Protein 100 mg/dL (NEG-TRACE) Urine Glucose (UA) 250 mg/dL (NEG) Neutrophils (%) (Auto) 5.8 % (16.0-70.0) Lymphocytes (%) (Auto) 75.5 % (9.0-44.0) Monocytes (%) (Auto) 18.7 % (0.0-8.0) Lymphocytes # (Auto) 61.6 TH/MM3 (1.0-4.8) Monocytes # (Auto) 15.2 TH/MM3 (0-0.9) Test 09/11/17 12:00 09/12/17 06:10 Creatinine 1.20 MG/DL (0.50-1.00) Estimat Glomerular Filtration Rate 43 ML/MIN (>89) Imaging Last Impressions Chest X-Ray 09/09/172016 Signed Impressions: Service Date/Time: Saturday, September 09, 2017 20:28 - CONCLUSION: Normal examination. Vishnu Westfall MD PE at Discharge GENERAL: Well-nourished, well-developed petite elderly female patient. SKIN: Warm and dry. HEAD: Normocephalic. EYES: No scleral icterus. No injection or drainage. NECK: Supple, trachea midline. No JVD or lymphadenopathy. CARDIOVASCULAR: Regular rate and rhythm without murmurs, gallops, or rubs. RESPIRATORY: Breath sounds equal bilaterally. No accessory muscle use. GASTROINTESTINAL: Abdomen soft, non-tender, nondistended. EXTREMITIES: No cyanosis, or edema. NEUROLOGICAL: Awake, alert, and oriented to self only. Non-focal. Pt update on day of discharge Patient denies pain or complaints. Patient's 2 daughters are bedside. Patient' s blood sugar was slightly low this morning at 57 and when the HOUSE CARPENTER got her up her knees buckled. Patient did not fall. Patient's daughters are quite upset because they state they told her nurse yesterday that patient tends to bottom out when given sliding scale insulin and that she needs a high sugar snack at bedtime. This was not communicated to me by nursing staff. I discussed this with the charge nurse who will address with the nurse. NovoLog has been discontinued. Patient is pending blood transfusion. Daughters report like to take her home this afternoon with home health care. PT evaluation pending. Hospital Course Patient was admitted to the hospital and underwent sepsis workup which was negative to include negative blood cultures urine chest x-ray. Patient's fevers resolved. Patient remained stable. Was taking good by mouth intake. Hematology was consulted who recommended that the patient continue on ibrutinib. Ibrutinib causes initial lymphocytosis which explains the increase in her white blood cell count. He can also cause fever. Patient has anemia of hemoglobin of 7.1. One unit packed red blood cells transfusion was ordered however she did have a positive antibody screen, the blood will be arriving today. Home health care has been arranged. Patient will be discharged home after she receives the blood transfusion and physical therapy works with her. Patient to follow-up with primary care physician with 1 week and with oncology Dr. Payne as previously directed. Pt Condition on Discharge: Stable Discharge Disposition: Discharge Home Discharge Time: > 30 minutes Discharge Instructions DIET: Follow Instructions for: Diabetic Diet Activities you can perform: Regular-No Restrictions Follow up Referrals: PCP Follow-up - 1 Week SNF/[facility]/ with NURSE [employer] [facility] Continued Medications: Cholecalciferol (D3 Super Strength) 2,000 Unit Cap 2000 UNITS PO DAILY for Nutritional Supplement, #30 CAP 0 Refills Escitalopram (Escitalopram) 20 Mg Tab 40 MG PO DAILY, #30 TAB 0 Refills Furosemide (Furosemide) 20 Mg Tab 10 MG PO EVERY OTHER DAY, #30 TAB 0 Refills Gabapentin (Gabapentin) 100 Mg Cap 100 MG PO TID, #30 CAP 0 Refills Ibrutinib (Imbruvica) 140 Mg Cap 420 Insulin Glargine Inj (Lantus Inj) 1,000 Unit/10 Ml Vial 20 UNITS SQ HS for Blood Sugar Management, VIAL 0 Refills Mai Erwin MD Sep 12, 2017 11:39
[2017-09-12] MEDS ORDERED: DEXTROSE 50% IN WATER 50 ML VIAL(D50) IV PUSH PRN (15:30)
[2017-09-12] MEDS ORDERED: GLUCAGON 1 MG/ML VIAL OTHER PRN (15:30)
[2017-09-12] MEDS: ACETAMINOPHEN 325 MG TAB PO PRN (15:36)
[2017-09-12] MEDS: MAGNESIUM HYDROXIDE SUSP 30 ML CUP PO PRN (18:23)
--- NOTE | 2017-09-12 18:39 | PD.ONC.PN ---
Subjective Subjective Remarks Resting comfortably in bed with daughters at bedside. Objective Data Date Time Temp Pulse Resp B/P (MAP) Pulse Ox O2 Delivery O2 Flow Rate FiO2 09/12/17 16:00 99.8 80 18 163/60 (94) 97 09/12/17 12:00 99.8 80 18 163/60 (94) 97 09/12/17 08:30 Room Air 09/12/17 08:00 96.7 76 20 144/65 (91) 94 09/12/17 04:00 98.2 79 20 139/66 (90) 99 09/12/17 00:00 99.2 96 20 159/68 (98) 98 09/11/17 20:00 98.2 89 16 125/51 (75) 96 09/11/17 20:00 Nasal Cannula 2.00 09/12/17 09/12/17 09/12/17 07:00 15:00 23:00 Intake Total 923 ml 950 ml 366 ml Balance 923 ml 950 ml 366 ml Result Diagram: 09/11/17 0415 09/12/17 0610 Laboratory Results Laboratory Tests Test 09/12/17 06:10 Creatinine 1.20 MG/DL Estimat Glomerular Filtration Rate 43 ML/MIN Culture Results Microbiology Date/Time Source Procedure Growth Status 09/09/17 21:10 Blood Peripheral Aerobic Blood Culture - Preliminary NO GROWTH IN 3 DAYS Resulted 09/09/17 21:10 Blood Peripheral Anaerobic Blood Culture - Preliminary NO GROWTH IN 3 DAYS Resulted 09/09/17 20:25 Blood Peripheral Aerobic Blood Culture - Preliminary NO GROWTH IN 3 DAYS Resulted 09/09/17 20:25 Blood Peripheral Anaerobic Blood Culture - Preliminary NO GROWTH IN 3 DAYS Resulted 09/09/17 20:20 Nasal Aspirate Influenza Types A,B Antigen (MOLLY) - Final NEGATIVE FOR FLU A AND B ANTIGEN.... Complete Administered Medications Medications (Trade) Dose Ordered Sig/Katie Route PRN Reason Start Time Stop Time Status Last Admin Dose Admin Acetaminophen (Tylenol) 650 mg Q4H PRN PO TEMP > 100.4, headache 09/09/17 22:00 09/12/17 15:36 Senna/Docusate Sodium (Ade-Colace) 1 tab BID PO 09/10/17 09:00 09/12/17 08:59 Magnesium Hydroxide (Milk Of Magnesia Liq) 30 ml Q12H PRN PO Mild constipation 09/09/17 22:00 09/12/17 18:23 Escitalopram Oxalate (Lexapro) 40 mg DAILY PO 09/10/17 09:00 09/12/17 08:59 Furosemide (Lasix) 10 mg EVERY OTHER DAY PO 09/11/17 09:00 09/11/17 09:38 Gabapentin (Neurontin) 100 mg TID PO 09/10/17 09:00 09/12/17 16:32 Patient Own Medication Ibrutinib 140mg capsu... DAILY PO 09/11/17 09:00 09/12/17 09:00 Insulin Aspart (NovoLOG SUPPLEMENTAL SCALE) 1 ACHS SLIDING SCALE SQ 09/12/17 17:00 09/12/17 16:32 Objective Remarks GENERAL: elderly lady SKIN: Warm and dry. HEAD: Normocephalic. EYES: No scleral icterus. No injection or drainage. CARDIOVASCULAR: Regular rate and rhythm without murmurs. RESPIRATORY: Breath sounds equal bilaterally. No accessory muscle use. GASTROINTESTINAL: Abdomen soft, non-tender, nondistended. EXTREMITIES: No cyanosis, or edema. NEUROLOGICAL: No obvious focal deficit. Awake, alert, and oriented x3. PSYCHIATRIC: Appropriate mood and affect; insight and judgment normal. Assessment/Plan Problem List: (1) CLL (chronic lymphocytic leukemia) ICD Codes: C91.10 - Chronic lymphocytic leukemia Status: Chronic Assessment 1. CLL: on ibrutinib recently restarted this medication. WBC elevated due to combination of CLL and ibrutinib therapy. She is under the care of Dr. Payne and will follow closely with him after hospital discharge. 2. Anemia: due to CLL will receive one unit of PRBC and then will be cleared for discharge home. Awaiting unit of blood as patient has antibodies and is difficult to match. 3. 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 Lower than in past, with ibrutinib possibly contributing. will continue to monitor. Kamille Angel MD Sep 12, 2017 18:39
[2017-09-12] MEDS ORDERED: PHARMACY ORDERED LAB ONE (23:45)
[2017-09-13] VITALS (11 sets, daily range): BP systolic 136–202; BP diastolic 65–94; PULSE 70–102; RESP 18–20; TEMP 97.5–99.7; O2SAT 94–98
[2017-09-13 06:38] LABS: MEAN CELL VOLUME 89.5 FL (80.0-100.0); MEAN CORPUSCULAR HEMOGLOBIN 29.9 PG (27.0-34.0); MEAN CORPUSCULAR HGB CONC 33.5 % (32.0-36.0); PLATELET COUNT 90 TH/MM3 (150-450); RED BLOOD COUNT 2.79 MIL/MM3 (4.00-5.30); RED CELL DISTRIBUTION WIDTH 18.1 % (11.6-17.2)
[2017-09-13 06:45] LABS: REVIEW FLAG FINAL
[2017-09-13] MEDS: INSULIN ASPART SUPPLEMENTAL SCALE SQ SCH ×4 (08:01→21:50)
[2017-09-13] MEDS: DOCUSATE SODIUM 50 MG/SENNA 8.6 MG TAB PO SCH ×2 (08:02→21:24)
[2017-09-13] MEDS: ESCITALOPRAM OXALATE 20 MG TAB PO SCH (08:02)
[2017-09-13] MEDS: GABAPENTIN 100 MG CAP PO SCH ×3 (08:02→17:16)
[2017-09-13] MEDS: FUROSEMIDE 20 MG TAB PO SCH (08:02)
[2017-09-13] MEDS: SODIUM CHLORIDE 0.9% FLUSH 10 ML FLUSH IV FLUSH SCH ×2 (08:02→21:21)
[2017-09-13] MEDS: IBRUTINIB 140 MG PO SCH (08:03)
--- NOTE | 2017-09-13 10:58 | HHI.PR ---
Subjective Remarks Patient did received blood transfusion last night Hb improved to 8.4. Patient was getting ready to be discharged. Patient ambulated with PT this morning and did well. However when her two daughters got her out of bed to go to the bathroom, and when patient went to grab her walker she "jerked" backwards and legs gave out and she sunk to the floor. She did not hit her head. Did not lose consciousness or hit her head. No tonic clonic actitivty. No postictal confusion. No loss of bladder or bowel control. Fall was not observed by nurse, history obtained from daughters and the patient. Blood sugar checked after the incident and was in the 200s. Patient denies pain to buttocks or head. She does c/o chronic pain in the lower extremities from her neuropathy. No history of stroke or head trauma or seizures. Daughters state they have also noticed her "twitching" her upper extremities several times yesterday. Patient normally able to get up with assist at home. Objective Vitals Vital Signs Date Time Temp Pulse Resp B/P (MAP) Pulse Ox O2 Delivery O2 Flow Rate FiO2 09/13/17 08:30 Room Air 09/13/17 08:00 97.5 70 18 170/69 (102) 95 09/13/17 04:00 98.1 83 20 139/94 (109) 94 09/13/17 02:22 98.1 83 18 139/94 94 09/13/17 00:20 98.8 91 18 136/74 95 09/13/17 00:00 98.8 91 20 136/74 (94) 95 09/12/17 23:53 98.1 87 20 156/76 97 09/12/17 21:00 Room Air 09/12/17 20:00 97.3 76 20 133/61 (85) 96 09/12/17 16:00 99.8 80 18 163/60 (94) 97 09/12/17 12:00 99.8 80 18 163/60 (94) 97 I/O 09/12/17 09/12/17 09/12/17 09/13/17 09/13/17 09/13/17 07:00 15:00 23:00 07:00 15:00 23:00 Intake Total 923 ml 950 ml 366 ml 806 ml Balance 923 ml 950 ml 366 ml 806 ml Intake Oral 240 ml 950 ml 240 ml IV Total 683 ml 366 ml Packed Cells 546 ml Blood Product IV Normal Saline Flush 20 ml # Voids 2 4 1 3 # Bowel Movements 0 1 1 Result Diagram: 09/13/1761909/13/17619 Objective Remarks GENERAL: Well-nourished, well-developed petite elderly female patient. SKIN: Warm and dry. HEAD: Normocephalic. EYES: No scleral icterus. No injection or drainage. NECK: Supple, trachea midline. No JVD or lymphadenopathy. CARDIOVASCULAR: Regular rate and rhythm without murmurs, gallops, or rubs. RESPIRATORY: Breath sounds equal bilaterally. No accessory muscle use. GASTROINTESTINAL: Abdomen soft, non-tender, nondistended. EXTREMITIES: No cyanosis, or edema. NEUROLOGICAL: Awake, alert, and oriented to self only. Equal outside sales consultant strength. Face symmetric. Normal speech. No trauma to head. No bruises over her lower extremities. Lower extremity strength 4 out of 5. 4/5 bilateral dorsum plantar flexion. Non-focal. Procedures None A/P Problem List: (1) SIRS (systemic inflammatory response syndrome) ICD Code: R65.10 - Systemic inflammatory response syndrome (SIRS) of non- infectious origin without acute organ dysfunction Status: Resolved (2) CLL (chronic lymphocytic leukemia) ICD Code: C91.10 - Chronic lymphocytic leukemia Status: Chronic (3) Generalized weakness ICD Code: R53.1 - Weakness Status: Acute (4) Dehydration ICD Code: E86.0 - Dehydration Status: Resolved (5) Dementia ICD Code: F03.90 - Unspecified dementia without behavioral disturbance Status: Chronic (6) Anemia ICD Code: D64.9 - Anemia, unspecified Status: Chronic (7) Diabetes mellitus ICD Code: E11.9 - Type 2 diabetes mellitus without complications Status: Chronic (8) CKD (chronic kidney disease), stage III ICD Code: N18.3 - Chronic kidney disease, stage 3 (moderate) Status: Chronic (9) Fall from standing ICD Code: W19.XXXA - Unspecified fall, initial encounter Assessment and Plan 87 yo CF -Fever, she was started on ibrutinib last week for the CLL. Apparently this can cause fever. It also causes initial elevation in white blood cell count. Urine chest x-ray blood cultures all negative. Patient appears clinically stable and is eating well. Abx dc'ed. 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 Hemoglobin improved from 7.1-8.4 after 1 unit packed red blood cells. -Fall today while patient's daughters were getting her out of bed. Does not appear that the patient injured herself. Apparently she jerked backwards and then her legs gave out from under her and she sank to the floor on her Botox. No head trauma. No evidence of injury on physical exam and patient does not have any localizing pain. Neurologic exam normal. No confusion. However her daughters stated they noted that she had some upper extremity twitching several times yesterday. Daughters have nursing background and patient's granddaughter is in [employer] [facility] nurse at [employer]. They are concerned about possible seizure, request neurology consultation. Will check MRI brain, EEG. Patient is at high risk for falls given her neuropathy, visual impairment, advanced age. -Dementia -History of CVA-daughters deny. -Type 2 diabetes with neuropathy - will decrease Levemir, give HS snack. -Hypothyroidism -cont synthroid. DVT prophylaxis with Lovenox 30 mg subcutaneous. Discharge Planning Family would not consider correction facility. Previously she was living at home with home health care and her daughter cares for her full-time. Previously was able to get up out of bed and ambulate with contact-guard. However now her legs appear to be weaker. Discharge planning pending. Mai Erwin MD Sep 13, 2017 10:58
[2017-09-13] MEDS ORDERED: DEXTROSE 50% IN WATER 50 ML VIAL(D50) IV PUSH PRN (11:15)
[2017-09-13] MEDS ORDERED: GLUCAGON 1 MG/ML VIAL OTHER PRN (11:15)
--- NOTE | 2017-09-13 16:31 | PD.ONC.PN ---
Subjective Subjective Remarks Patient seen and examined, vital signs, medications and labs reviewed, extensive earlier today also reviewed. Per the patient's granddaughter and daughter at bedside and she was getting ready to go home, while walking out the door the patient collapsed on the floor. Per the patient she has no recollection of these events. Because the patient as a child had seizure disorder/epilepsy and had been on phenytoin for many years there was some concern of recurrent seizures. The family also points out that the patient has been having "jerking movements" of the hands. Neurologic evaluation has been requested and per the family and EEG and MRI of the brain are to be done. Earlier today she was transfused 1 unit packed red blood cells. Subjectively; patient reports feeling fatigued and tired, she tells me she has no appetite, she still however wants to go home as soon as possible. Objective Data Date Time Temp Pulse Resp B/P (MAP) Pulse Ox O2 Delivery O2 Flow Rate FiO2 09/13/17 13:00 98.8 83 20 156/88 (110) 95 09/13/17 12:00 98.2 79 20 146/73 (97) 98 09/13/17 10:53 161/82 (108) 09/13/17 10:30 98.2 102 20 202/86 (124) 96 09/13/17 08:30 Room Air 09/13/17 08:00 97.5 70 18 170/69 (102) 95 09/13/17 04:00 98.1 83 20 139/94 (109) 94 09/13/17 02:22 98.1 83 18 139/94 94 09/13/17 00:20 98.8 91 18 136/74 95 09/13/17 00:00 98.8 91 20 136/74 (94) 95 09/12/17 23:53 98.1 87 20 156/76 97 09/12/17 21:00 Room Air 09/12/17 20:00 97.3 76 20 133/61 (85) 96 09/13/17 09/13/17 09/13/17 07:00 15:00 23:00 Intake Total 806 ml 725 ml Balance 806 ml 725 ml Result Diagram: 09/13/1720 09/13/17 0620 Laboratory Results Laboratory Tests Test 09/13/17 06:20 White Blood Count 75.0 TH/MM3 Red Blood Count 2.79 MIL/MM3 Hemoglobin 8.4 GM/DL Hematocrit 25.0 % Mean Corpuscular Volume 89.5 FL Mean Corpuscular Hemoglobin 29.9 PG Mean Corpuscular Hemoglobin Concent 33.5 % Red Cell Distribution Width 18.1 % Platelet Count 90 TH/MM3 Mean Platelet Volume 7.5 FL Creatinine 1.30 MG/DL Estimat Glomerular Filtration Rate 39 ML/MIN Administered Medications Medications (Trade) Dose Ordered Sig/Katie Route PRN Reason Start Time Stop Time Status Last Admin Dose Admin Sodium Chloride (NS Flush) 2 ml BID IV FLUSH 09/10/17 09:00 09/13/17 08:02 Acetaminophen (Tylenol) 650 mg Q4H PRN PO TEMP > 100.4, headache 09/09/17 22:00 09/12/17 15:36 Senna/Docusate Sodium (Ade-Colace) 1 tab BID PO 09/10/17 09:00 09/13/17 08:02 Magnesium Hydroxide (Milk [employer]laine Kaminski) 30 ml Q12H PRN PO Mild constipation 09/09/17 22:00 09/12/17 18:23 Escitalopram Oxalate (Lexapro) 40 mg DAILY PO 09/10/17 09:00 09/13/17 08:02 Furosemide (Lasix) 10 mg EVERY OTHER DAY PO 09/11/17 09:00 09/13/17 08:02 Gabapentin (Neurontin) 100 mg TID PO 09/10/17 09:00 09/13/17 13:00 Acetaminophen (Tylenol) 650 mg Q4H PRN PO SEE LABEL COMMENTS 09/11/17 08:00 09/12/17 23:59 Diphenhydramine HCl (Benadryl) 25 mg Q4H PRN PO SEE LABEL COMMENTS 09/11/17 08:00 09/12/17 23:58 Patient Own Medication Ibrutinib 140mg capsu... DAILY PO 09/11/17 09:00 09/13/17 08:03 Insulin Aspart (NovoLOG SUPPLEMENTAL SCALE) 1 ACHS SLIDING SCALE SQ 09/13/17 12:00 09/13/17 15:39 Objective Remarks GENERAL: Elderly lady, appears to be frail, she is laying in bed, her family's at bedside. The patient is pale. She did not however acutely distressed. SKIN: Warm and dry. HEAD: Normocephalic. EYES: No scleral icterus. No injection or drainage. Conjunctivae are pale sclerae anicteric, EOMI, PERRLA. CARDIOVASCULAR: Irregular rhythm,, S1 and S2 normal murmurs or gallops. RESPIRATORY: Decreased bibasilar breath sounds with crepitus on inspiration, otherwise good air movement over the upper and middle lung zone on posterior examination. GASTROINTESTINAL: Abdomen soft, non-tender, nondistended. EXTREMITIES: No cyanosis, or edema. Generally decreased muscle mass, tone is strength. NEUROLOGICAL: No obvious focal deficit. Awake, alert, and oriented x3. PSYCHIATRIC: She is awake and alert but is not oriented to time. She is aware she is in the hospital. Assessment/Plan Problem List: (1) CLL (chronic lymphocytic leukemia) ICD Codes: C91.10 - Chronic lymphocytic leukemia Status: Chronic Assessment 1. CLL: on ibrutinib. WBC elevated due to combination of CLL and ibrutinib therapy (which can paradoxically result in progressive lymphocytosis for up to 3 months after initiation of therapy). Her major issue however is generalized debility and frailty. She certainly has underlying dementia and adult failure to thrive. Is very clear that she requires assistance for all activities of daily living from her family with whom she lives. It is not clear to what degree she will recover, I'm not certain how much her CLL is contributing to her ongoing decline. I suspect that her dementia and overall general physical deconditioning due to her history of diabetes, diabetic retinopathy and chronic renal failure certainly makes drivers of her morbidity. She is under the care of Dr. Payne and will follow closely with him after hospital discharge. 2. Anemia: Status post transfusion 1 unit of packed red blood cell earlier today. 3. 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 Lower than in past, with ibrutinib possibly contributing. will continue to monitor. Disposition: Cleared for discharge for hematologic standpoint once her neurologic workup is complete. Mehdi Toure MD Sep 13, 2017 16:31
--- NOTE | 2017-09-13 19:50 | RADRPT ---
EXAM DATE/TIME: 09/13/2017 18:04 [facility] COMPARISON: CT BRAIN W/O CONTRAST, May 28, 2017, 23:55. INDICATIONS : Seizures. MEDICAL HISTORY : Hypertension. Cardiovascular disease Diabetes mellitus type 2.Uterine ca SURGICAL HISTORY : Cholecystectomy. Appendectomy.Hysterectomy ENCOUNTER: Initial ACUITY: 1 day PAIN SCORE: 0/10 LOCATION: cranial TECHNIQUE: Multiplanar, multisequence MRI of the brain was performed without contrast. FINDINGS: CEREBRUM: There is encephalomalacia involving the left occipital and posterior medial temporal lobes. There is expansion of the posterior aspect of the left lateral ventricle in response to this. The ventricles a nd cortical sulci are dilated. No evidence of midline shift, mass lesion, hemorrhage or acute infarc tion. No extraaxial fluid collections are seen. The pituitary gland and suprasellar cistern are nor mal in configuration. WHITE MATTER: There is mild diffuse increased signal in the periventricular white matter likely secondary to small vessel ischemic change. POSTERIOR FOSSA: The cerebellum and brainstem are intact. The 4th ventricle is midline. The cerebellopontine angle is unremarkable. The cerebellar tonsils are normal in position. DIFFUSION IMAGING: No focal areas of restricted diffusion are seen. No evidence of acute infarction. EXTRACRANIAL: The visualized portions of the orbits are unremarkable. There is bilateral maxillary and ethmoid sinu s disease. CONCLUSION: 1. No acute abnormality seen. 2. Encephalomalacia at the left temporal and occipital lobes. 3. Age-related atrophy. 4. Sinus disease. Vishnu Westfall MD on September 13, 2017 at 19:38 Board Certified Radiologist. This report was verified electronically.
--- NOTE | 2017-09-13 20:17 | MB ---
cc: STEVE HERNANDEZ DATE OF CONSULTATION: 09/13/2017. REASON FOR CONSULTATION: Possible seizure. 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 She was on ibrutinib, which was being held due to nausea and vomiting, but re-started about two weeks ago. They tell me that increased her white count up and in fact her white count was 50,000 when she came in. She has had some slow weight loss. She is refusing to eat. Not feeling well. Was febrile with cough, sore throat. She then had an episode when she was about to go home today when she stood up and was at her walker when suddenly her head jerked back, her arms jerked a bit, her legs gave out, she fell to the floor. She looked very pale. She got into bed and some time after that her blood pressure was about 200 systolic, usually she runs a lower blood pressure. She denies any headache. According to the family, no hypertension although it is listed in her chart. No history of hypercholesterolemia, myocardial infarction, CABG, stents, angioplasty, atrial fibrillation, coumadin, hepatic disease, pulmonary disease. There is a history of hypothyroidism. No history of lupus, ulcer, known stroke. She had epilepsy supposedly when she was young at about 10 years old and she was on Dilantin for many years which was stopped about three years ago because her levels were subtherapeutic. She did not have a seizure as far as her daughter knows the whole time the daughter has known her in her whole life. She has noticed in the last four days however she has had what likely are some myoclonic jerks. SOCIAL HISTORY: She is not a smoker or a drinker and lives with her daughter. FAMILY HISTORY: Positive cancer, negative for seizure or stroke. ALLERGIES: NO KNOWN DRUG ALLERGIES. MEDICATIONS AT HOME: 1. She is on the Imbruvica. 2. Citalopram. 3. Insulin. 4. Gabapentin 100 three times a day. 5. Lasix. 6. Calcium. PHYSICAL EXAMINATION: VITAL SIGNS: On exam, her T-max was 101 when she came in. She has generally been afebrile here. Blood pressure 156/85 to 202/86. This entire admission she has been running about 130s to 140s. Her blood pressure is back down to 156/65. NECK: There are no carotid bruits. HEART: Regular rhythm. I do not detect a murmur. NEUROLOGICAL EXAMINATION: Pupils are equal. Visual díaz are patchy vision loss due to the retinal changes. Extraocular movements intact without nystagmus. Face is symmetric. Tongue was midline. There is no drift. She does have asterixis however in bilateral upper extremities. Strength was normal in upper and lower extremities bilaterally. DTRs are trace throughout. Toes are downgoing bilaterally. There is no ankle clonus. Pin prick is intact throughout. It is hard to say however as she is not persistent on that. She is not ataxic on [id number]. She thinks she lives in [place]; she knows that that is in [place]. She cannot tell me the year. She follows commands well. LABORATORY DATA: Her white count was up to 84,000 today 75,000. Hematocrit is 25, it was two days ago 20 and she was given a transfusion. Platelet count 90,000. Basic metabolic profile essentially normal. Creatinine 1.2. GFR 43. B12 was normal a year ago. Liver function tests normal on this admission. Calcium 8.2, 7.8 yesterday. Corrected calcium 8.3, just slightly low. Magnesium was normal a year ago. Phosphorus normal three years ago. Coags are normal. Dilantin level was running 1.8 to 6.3 back in 2016. IMAGING STUDIES: She had a carotid ultrasound done in 2013 that was negative. MRI of the brain was performed. Unfortunately I am unable to pull up the films and the report is pending. IMPRESSION: She does have asterixis and I would check some orthostatics on her to make sure she is not hypotensive. I think it is unlikely she had a seizure per se. An MRI has been performed, or is pending. I would check an EEG and a carotid ultrasound on her. Why she has the asterixis is unclear. We can check an ABG and an ammonia level, phosphorus, magnesium and some additional blood work. I will be following her with you in the hospital. I note she has been in sinus rhythm here. I would hold the Hariretryl with her dementia if possible. MD EFRAIN Townsend/JOHNATHAN /7:46 PM /8:05 PM
[2017-09-13 20:50] LABS: BLOOD GAS BASE EXCESS 4.9 mmol/L (-2-2); BLOOD GAS CARBOXYHEMOGLOBIN 2.4 % (0-4); BLOOD GAS HCO3 29 mmol/L (22-26); BLOOD GAS METHEMOGLOBIN 0.9 % (0-2); BLOOD GAS O2 HGB SATURATION 93 % (90-100); BLOOD GAS OXYGEN CONTENT 12.7 Vol % (12.0-20.0); BLOOD GAS PCO2 41 mmHg (38-42); BLOOD GAS PO2 68 mmHg (61-120); BLOOD GAS TOTAL HGB 9.7 G/DL (12.0-16.0); CRITICAL VALUE NO; DRAW SITE RT BRACHIAL; FIO2 21 %; NUMBER OF ARTERIAL PUNCTURES 1; OXYGEN DEVICE ROOM AIR; STAT NO
[2017-09-13] MEDS ORDERED: INSULIN DETEMIR 100 UNITS/ML VIAL SQ SCH (21:00)
[2017-09-13 22:48] LABS: FREE T4 1.33 NG/DL (0.76-1.46)
[2017-09-13] MEDS: ACETAMINOPHEN 325 MG TAB PO PRN (23:08)
[2017-09-14] VITALS: BP 149/63; PULSE 78; RESP 16; TEMP 98.4; O2SAT 95
[2017-09-14 07:30] VITALS: BP 155/70; PULSE 76; RESP 20; TEMP 96.1; O2SAT 98
[2017-09-14] MEDS: INSULIN ASPART SUPPLEMENTAL SCALE SQ SCH ×4 (08:49→21:41)
[2017-09-14] MEDS: GABAPENTIN 100 MG CAP PO SCH ×3 (08:49→17:09)
[2017-09-14] MEDS: ESCITALOPRAM OXALATE 20 MG TAB PO SCH (08:49)
[2017-09-14] MEDS: DOCUSATE SODIUM 50 MG/SENNA 8.6 MG TAB PO SCH ×2 (08:50→21:41)
[2017-09-14] MEDS: IBRUTINIB 140 MG PO SCH (08:52)
[2017-09-14] MEDS: SODIUM CHLORIDE 0.9% FLUSH 10 ML FLUSH IV FLUSH SCH ×2 (08:52→21:43)
--- NOTE | 2017-09-14 11:23 | MG ---
cc: STEVE HERNANDEZ MD Lab No: [id number] Date: 09/14/17 Age: 87 Sex: F Race: HISTORY An 87-year-old woman. Body jerked back, fell to the floor, some myoclonic jerks. MEDICATIONS 1. Lexapro. 2. Neurontin. 3. Benadryl. DESCRIPTION A 9 Hz symmetric, 60 microvolt rhythm is seen at times, other times some mild theta slowing to 6 Hz is seen. The patient is noted to be snoring at the beginning of the recording and some diffuse delta slowing occasionally is noted consistent with sleep but does not reach stage II sleep. No epileptiform or seizure activity is noted. Photic stimulation was performed without significant posterior driving. Occasionally some triphasic appearing waves are noted. IMPRESSION Diffuse slowing, some slight triphasic appearance consistent with a metabolic encephalopathy. No seizure activity was noted. MD EFRAIN Townsend/BJF /10:08 AM /11:19 AM
[2017-09-14 11:50] VITALS: BP_SYST 128; BP_SYST 133; BP_SYST 137; BP_DIAS 60; BP_DIAS 62; PULSE 73; RESP 20; TEMP 98.3; O2SAT 95
--- NOTE | 2017-09-14 11:53 | RADRPT ---
EXAM DATE/TIME: 09/14/2017 10:12 [facility] COMPARISON: US CAROTID ARTERIES, May 28, 2014, 22:31. INDICATIONS : Cerebrovascular accident. MEDICAL HISTORY : Gastroesophageal reflux disease. Alzheimer's. Thyroid disease. Diabetic retinopathy. Cerebrovascula r accident. Seizures. Diabetic neuropathy. Hemmorhoids. Hiatal hernia. . Renal failure. Arth ritis. Diabetes. Depression. Anxiety. Chronic lymphocytic leukemia. Chemotherpy. Measles. Blood winter sfusion. SURGICAL HISTORY : Cholecystectomy. Appendectomy. Hysterectomy. Left breast lumpectomy. Right hip surgery. ENCOUNTER: Initial ACUITY: 1 day PAIN SCORE: 0/10 LOCATION: Bilateral neck PEAK SYSTOLIC VELOCITIES (cm/sec): ICA/CCA RATIO: Right: 1.1 Left: 2.2 ICA: Right: 89 Left: 161 CCA: Right: 78 Left: 73 ECA: Right: 81 Left: 91 VERTEBRAL: Right: 54 antegrade Left: 77 antegrade Elevated flow velocities and ICA/CCA ratios have been found to correlate with increased degrees of vessel stenosis, calculated as percentage of diameter relative to a normal segment of distal ICA/CCA FINDINGS: RIGHT CAROTID: No significant stenosis is visualized. The waveforms are within normal limits. LEFT CAROTID: No significant stenosis is visualized. The waveforms are within normal limits. VERTEBRAL ARTERIES: Antegrade flow is seen in both vertebral arteries. MISCELLANEOUS: None. CONCLUSION: No evidence of hemodynamically significant carotid stenosis. Vessels are tortuous. Mainor Payne MD on September 14, 2017 at 11:45 Board Certified Radiologist. This report was verified electronically.
--- NOTE | 2017-09-14 13:10 | HHI.PR ---
Subjective Remarks Nursing staff reported that patient's family was upset didn't understand why brain MRA was ordered. Patient denies complaints. No pain. Discussed with daughter at bedside. Objective Vitals Vital Signs Date Time Temp Pulse Resp B/P (MAP) Pulse Ox O2 Delivery O2 Flow Rate FiO2 09/14/17 11:50 98.3 73 20 133/60 (84) 95 137/60 (85) 128/62 (84) 09/14/17 09:00 Room Air 09/14/17 07:30 96.1 76 20 155/70 (98) 98 09/14/17 00:00 98.4 78 16 149/63 (91) 95 09/13/17 21:00 Room Air 09/13/17 20:00 98.1 81 20 145/65 (91) 96 09/13/17 20:00 78 09/13/17 16:00 99.7 82 20 156/65 (95) 96 I/O 09/13/17 09/13/17 09/13/17 09/14/17 09/14/17 09/14/17 07:00 15:00 23:00 07:00 15:00 23:00 Intake Total 806 ml 725 ml Output Total 500 ml Balance 806 ml 725 ml -500 ml Intake Oral 240 ml 725 ml Packed Cells 546 ml Blood Product IV Normal Saline Flush 20 ml Output Urine Total 500 ml # Voids 3 3 1 # Bowel Movements 1 1 Result Diagram: 09/13/17 0620 09/13/17 0620 Objective Remarks GENERAL: Well-nourished, well-developed petite elderly female patient. SKIN: Warm and dry. HEAD: Normocephalic. EYES: No scleral icterus. No injection or drainage. NECK: Supple, trachea midline. No JVD or lymphadenopathy. CARDIOVASCULAR: Regular rate and rhythm without murmurs, gallops, or rubs. RESPIRATORY: Breath sounds equal bilaterally. No accessory muscle use. GASTROINTESTINAL: Abdomen soft, non-tender, nondistended. EXTREMITIES: No cyanosis, or edema. NEUROLOGICAL: Awake, alert, and oriented to self only. Face symmetric. Normal speech. Nonfocal Procedures None A/P Problem List: (1) SIRS (systemic inflammatory response syndrome) ICD Code: R65.10 - Systemic inflammatory response syndrome (SIRS) of non- infectious origin without acute organ dysfunction Status: Resolved (2) CLL (chronic lymphocytic leukemia) ICD Code: C91.10 - Chronic lymphocytic leukemia Status: Chronic (3) Generalized weakness ICD Code: R53.1 - Weakness Status: Acute (4) Dehydration ICD Code: E86.0 - Dehydration Status: Resolved (5) Dementia ICD Code: F03.90 - Unspecified dementia without behavioral disturbance Status: Chronic (6) Anemia ICD Code: D64.9 - Anemia, unspecified Status: Chronic (7) Diabetes mellitus ICD Code: E11.9 - Type 2 diabetes mellitus without complications Status: Chronic (8) CKD (chronic kidney disease), stage III ICD Code: N18.3 - Chronic kidney disease, stage 3 (moderate) Status: Chronic (9) Fall from standing ICD Code: W19.XXXA - Unspecified fall, initial encounter Assessment and Plan 87 yo CF -Fever, she was started on ibrutinib last week for the CLL. Apparently this can cause fever. It also causes initial elevation in white blood cell count. Urine chest x-ray blood cultures all negative. Patient appears clinically stable and is eating well. Abx az'ed. 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 Hemoglobin improved from 7.1-8.4 after 1 unit packed red blood cells. -Fall on 09/13 while patient's daughters were getting her out of bed for discharge home. No injury. Apparently she jerked backwards and then her legs gave out from under her and she sank to the floor on her Botox. No head trauma. No evidence of injury on physical exam and patient without localizing pain. Neurologic exam normal. No confusion after fall. However her daughters stated they noted that she had some upper extremity twitching several times the day prior. Daughters have nursing background and patient's granddaughter is in [employer] nurse at [place]. They are concerned about possible seizure, patient has hx of seizures as child, none since childhood. Appreciate neurology consultation. Not thought likely to be a seizure, but patient may have myoclonic jerks. Asterixis noted on exam. MRI brain showed encephalomalacia at the left temporal and occipital lobes, carotid ultrasound normal. EEG pending. Patient is at high risk for falls given her neuropathy, visual impairment, advanced age. Discussed with daughter she may need more help at home to prevent falls as she fell yesterday with 2 daughters assisting her. Daughter feels that they do not need more help at home, and that they will have two people at home with her at all times. Home health care has been ordered. Case management did provide them with information for private duty home health aide. I discussed the patient with Dr. Goodman who will see her this afternoon. -Dementia -History of CVA-daughters deny. -Type 2 diabetes with neuropathy - family initially declined SSI. Then declining at bedtime Levemir which was held. Continue sliding scale insulin. BSG 100-300s. Cont neurontin. -Hypothyroidism -cont synthroid. DVT prophylaxis -family declined Lovenox 30 mg subcutaneous due to CKD. SCDs ordered. Discharge Planning Family will not consider care home facility. Previously she was living at home with home health care and her daughter cares for her full-time. Previously was able to get up out of bed and ambulate with contact-guard. However now her legs appear to be weaker. HHC to be arranged. Family given business information for private duty home health aide. PT eval pending today. Tentative DC plan is to home. Pending completion of neurologic workup and PT evaluation. Mai Erwin MD Sep 14, 2017 13:10
[2017-09-14] MEDS ORDERED: GADOBENATE DIM PF 529 MG/ML 5 ML VIAL (for RAD MRI) IV ONE (14:50)
--- NOTE | 2017-09-14 15:33 | ECHRPT ---
Indication: Transient cerebral ischemic attack, unspecified CONCLUSIONS The transthoracic study is normal by two-dimensional, color flow imaging and Doppler interrogation. No mitral valve stenosis trace to mild mitral valve regurgitation. The pulmonary valve is not well visualized. Ef=65% BP: / HR: Rhythm: MEASUREMENTS (Male / Female) Normal Values Technical Quality: 2D ECHO LV Diastolic Diameter PLAX 4.1 cm 4.2 - 5.9 / 3.9 - 5.3 cm LV Systolic Diameter PLAX 3.0 cm IVS Diastolic Thickness 1.2 cm 0.6 - 1.0 / 0.6 - 0.9 cm LVPW Diastolic Thickness 1.3 cm 0.6 - 1.0 / 0.6 - 0.9 cm LV Relative Wall Thickness 0.6 RV Internal Dim ED PLAX 2.0 cm M-MODE Aortic Root Diameter MM 3.6 cm LA Systolic Diameter MM 4.0 cm LA Ao Ratio MM 1.1 AV Cusp Separation MM 1.7 cm DOPPLER Mitral E Point Velocity 114.0 cm/s Mitral A Point Velocity 120.0 cm/s Mitral E to A Ratio 0.9 FINDINGS LEFT VENTRICLE Normal left ventricular size and wall thickness. The left ventricular systolic function is normal wi th an estimated ejection fraction in the range of 60-65%. Left ventricular diastolic function parameters a re normal. RIGHT VENTRICLE Normal right ventricular size and systolic function. LEFT ATRIUM The left atrial size is normal. RIGHT ATRIUM The right atrial size is normal. ATRIAL SEPTUM Normal atrial septal thickness without atrial level shunting by limited color doppler interrogation. AORTA The aortic root and proximal ascending aorta are normal in size on limited imaging. MITRAL VALVE Structurally normal mitral valve. No mitral valve stenosis trace mitral valve regurgitation. AORTIC VALVE Trileaflet aortic valve. No aortic valve stenosis or regurgitation. TRICUSPID VALVE Structurally normal tricuspid valve. No tricuspid valve stenosis or regurgitation. PULMONARY VALVE The pulmonary valve is not well visualized. VESSELS The inferior vena cava is normal in size. PERICARDIUM No pericardial effusion. Bhupinder Miller MD, FACC, [facility] [place] (Electronically Signed) Final Date:14 September 2017 15:32
--- NOTE | 2017-09-14 15:39 | RADRPT ---
EXAM DATE/TIME: 09/14/2017 14:37 [facility] COMPARISON: MRA BRAIN W/O CONTRAST, September 14, 2017, 14:37. MRI BRAIN W/O CONTRAST, September 13, 2017, 18:04. CT BRAIN W/O CONTRAST, May 28, 2017, 23:55. INDICATIONS : CVA. CONTRAST: 12 cc Multihance (gadobenate) IV MEDICAL HISTORY : Hypertension. Cardiovascular disease. Diabetes mellitus type 2. Uterine cancer. SURGICAL HISTORY : Cholecystectomy. Appendectomy. Hysterectomy. ENCOUNTER: Subsequent ACUITY: 3 day PAIN SCORE: 3/10 LOCATION: cranial TECHNIQUE: Multiplanar, multisequence MRI of the brain was performed both prior to and following the administrat ion of paramagnetic contrast. FINDINGS: There is atrophy and no evidence for acute infarction on diffusion weighted images. Encephalomalacia in the left occipital and temporal regions with ex vacuo dilatation of the posterior horn left latera l ventricle, gliosis and laminar necrosis identified from remote infarct. In addition a remote left p arietal infarct is also seen with encephalomalacia. No worrisome masses. No hemorrhage. No abnormal a reas of enhancement are seen. CONCLUSION: No acute findings. Abdon Garcia MD on September 14, 2017 at 15:35 Board Certified Radiologist. This report was verified electronically.
--- NOTE | 2017-09-14 15:40 | RADRPT ---
EXAM DATE/TIME: 09/14/2017 14:37 [place] COMPARISON: MRI BRAIN W & W/O CONTRAST, September 14, 2017, 14:37. MRI BRAIN W/O CONTRAST, September 13, 2017, 18 :04. CT BRAIN W/O CONTRAST, May 28, 2017, 23:55. INDICATIONS : CVA. MEDICAL HISTORY : Hypertension. Cardiovascular disease. Diabetes mellitus type 2. Uterine cancer. SURGICAL HISTORY : Cholecystectomy. Appendectomy. Hysterectomy. ENCOUNTER: Subsequent ACUITY: 3 day PAIN SCORE: 3/10 LOCATION: cranial Please note a normal MRA of the brain does not entirely exclude the possibility of a small aneurysm, nor the possibility of distal intracranial vessel disease. TECHNIQUE: 3D time of flight MRA was performed. Source images, multiplanar STS MIP, and 3D volume MIP reconstru ctions were reviewed. FINDINGS: The anterior and middle cerebral arteries, internal carotid arteries, vertebral arteries, basilar art kenneth and posterior cerebral arteries are patent. Superior cerebellar arteries are patent. There is ath erosclerotic irregularity of the posterior cerebral arteries bilaterally, as well as the middle cereb ral arteries without high-grade stenosis. No obvious aneurysm. No occlusion. CONCLUSION: Atherosclerotic disease is noted. Abdon Garcia MD on September 14, 2017 at 15:37 Board Certified Radiologist. This report was verified electronically.
[2017-09-14 15:45] VITALS: BP_SYST 137; BP_SYST 138; BP_SYST 150; BP_DIAS 63; BP_DIAS 64; BP_DIAS 65; PULSE 80; RESP 20; TEMP 98.3; O2SAT 97
--- NOTE | 2017-09-14 16:24 | HHI.PR ---
Subjective Remarks sr Objective Vital Signs Date Time Temp Pulse Resp B/P (MAP) Pulse Ox O2 Delivery O2 Flow Rate FiO2 09/14/17 15:45 98.3 80 20 138/63 (88) 97 150/65 (93) 137/64 (88) 09/14/17 11:50 98.3 73 20 133/60 (84) 95 09/14/17 11:50 98.3 73 20 133/60 (84) 95 137/60 (85) 128/62 (84) 09/14/17 09:00 Room Air 09/14/17 07:30 96.1 76 20 155/70 (98) 98 09/14/17 00:00 98.4 78 16 149/63 (91) 95 09/13/17 21:00 Room Air 09/13/17 20:00 98.1 81 20 145/65 (91) 96 09/13/17 20:00 78 I/O 09/13/17 09/13/17 09/13/17 09/14/17 09/14/17 09/14/17 07:00 15:00 23:00 07:00 15:00 23:00 Intake Total 806 ml 725 ml Output Total 500 ml Balance 806 ml 725 ml -500 ml Intake Oral 240 ml 725 ml Packed Cells 546 ml Blood Product IV Normal Saline Flush 20 ml Output Urine Total 500 ml # Voids 3 3 1 # Bowel Movements 1 1 Result Diagram: 09/13/17 0620 09/13/17 0620 Objective Remarks awke alert no more asterixis feels well moves all well some vision restriction not neglect to r Assessment and Plan Assessment and Plan imp esr 70 ? 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 left mca dz not major stenosis poor study bp standing ok eeg cw met enceph should take asa 81mg a day for now b12 shot plan is ok to dc and fu 30 day holter o/p and mra neck o/p Chris Goodman MD Sep 14, 2017 16:24
[2017-09-14] MEDS ORDERED: CYANOCOBALAMIN 1000 MCG/ML VIAL SQ ONE (16:30)
[2017-09-14] MEDS: ASPIRIN 81 MG CHEW TAB PO SCH (17:20)
[2017-09-14 20:43] VITALS: BP_SYST 138; BP_SYST 156; BP_SYST 166; BP_DIAS 62; BP_DIAS 68; BP_DIAS 69; PULSE 80; RESP 18; TEMP 97.8; O2SAT 97
[2017-09-15 00:41] VITALS: BP 127/63; PULSE 78; RESP 20; TEMP 98.5; O2SAT 93
[2017-09-15 04:00] VITALS: BP 137/76; PULSE 75; RESP 16; TEMP 98.7; O2SAT 94
[2017-09-15 07:07] VITALS: PULSE 75
[2017-09-15 07:50] VITALS: BP_SYST 143; BP_SYST 152; BP_SYST 181; BP_DIAS 66; BP_DIAS 67; BP_DIAS 75; PULSE 77; RESP 20; TEMP 97.2; O2SAT 99
[2017-09-15] MEDS: INSULIN ASPART SUPPLEMENTAL SCALE SQ SCH ×2 (08:00→12:00)
[2017-09-15] MEDS: SODIUM CHLORIDE 0.9% FLUSH 10 ML FLUSH IV FLUSH SCH (09:07)
[2017-09-15] MEDS: ESCITALOPRAM OXALATE 20 MG TAB PO SCH (09:08)
[2017-09-15] MEDS: ASPIRIN 81 MG CHEW TAB PO SCH (09:08)
[2017-09-15] MEDS: DOCUSATE SODIUM 50 MG/SENNA 8.6 MG TAB PO SCH (09:08)
[2017-09-15] MEDS: FUROSEMIDE 20 MG TAB PO SCH (09:08)
[2017-09-15] MEDS: GABAPENTIN 100 MG CAP PO SCH ×2 (09:09→12:35)
[2017-09-15] MEDS: IBRUTINIB 140 MG PO SCH (10:57)
[2017-09-15 11:50] VITALS: BP 156/65; PULSE 74; RESP 20; TEMP 98; O2SAT 96
--- NOTE | 2017-09-15 12:47 | HHI.PR ---
Subjective Remarks Written by Yina Bustos, acting as scribe for Dr. Erwin on 09/15/17 at 12: 37. Follow up fever, fall and dementia. Patient seen and examined, daughter at bedside. Spoke at length regarding discharge plans and assuring patient does not get up alone at home with the need for always having someone to assist patient. Daughter assures patient will be safe going home and there will always be someone present. Patient is lying in bed comfortably in no apparent distress. She denies any acute events overnight. Denies pain. Positive orthostatics today, patient asymptomatic. Eating well. Awaiting PT to see patient today. Objective Vitals Vital Signs Date Time Temp Pulse Resp B/P (MAP) Pulse Ox O2 Delivery O2 Flow Rate FiO2 09/15/17 08:00 Room Air 09/15/17 07:50 97.2 77 20 181/75 (110) 99 152/66 (94) 143/67 (92) 09/15/17 07:07 75 09/15/17 04:00 98.7 75 16 137/76 (96) 94 09/15/17 00:41 98.5 78 20 127/63 (84) 93 09/14/17 20:43 97.8 80 18 138/62 (87) 97 156/69 (98) 166/68 (100) 09/14/17 15:45 98.3 80 20 138/63 (88) 97 150/65 (93) 137/64 (88) I/O 09/14/17 09/14/17 09/14/17 09/15/17 09/15/17 09/15/17 07:00 15:00 23:00 07:00 15:00 23:00 Output Total 500 ml Balance -500 ml Output Urine Total 500 ml # Voids 2 # Bowel Movements 1 Result Diagram: 09/13/17 0620 09/13/17 0620 Imaging Last Impressions Head Magnetic Resonance Angiography 09/14/171945 Signed Impressions: Service Date/Time: Thursday, September 14, 2017 14:37 - CONCLUSION: Atherosclerotic disease is noted. Abdon Garcia MD Carotid Artery Ultrasound 09/14/171945 Signed Impressions: Service Date/Time: Thursday, September 14, 2017 10:12 - CONCLUSION: No evidence of hemodynamically significant carotid stenosis. Vessels are tortuous. Mainor Payne MD Brain MRI 09/14/171945 Signed Impressions: Service Date/Time: Thursday, September 14, 2017 14:37 - CONCLUSION: No acute findings. Abdon Garcia MD Chest X-Ray 09/09/172016 Signed Impressions: Service Date/Time: Saturday, September 09, 2017 20:28 - CONCLUSION: Normal examination. Vishnu Westfall MD Objective Remarks GENERAL: Well-nourished, well-developed petite elderly female patient. SKIN: Warm and dry. HEAD: Normocephalic. EYES: No scleral icterus. No injection or drainage. NECK: Supple, trachea midline. No JVD or lymphadenopathy. CARDIOVASCULAR: Regular rate and rhythm without murmurs, gallops, or rubs. RESPIRATORY: Breath sounds equal bilaterally. No accessory muscle use. GASTROINTESTINAL: Abdomen soft, non-tender, nondistended. EXTREMITIES: No cyanosis, or edema. NEUROLOGICAL: Awake, alert, and oriented to self only. Face symmetric. Normal speech. Nonfocal Procedures None A/P Problem List: (1) SIRS (systemic inflammatory response syndrome) ICD Code: R65.10 - Systemic inflammatory response syndrome (SIRS) of non- infectious origin without acute organ dysfunction Status: Resolved (2) CLL (chronic lymphocytic leukemia) ICD Code: C91.10 - Chronic lymphocytic leukemia Status: Chronic (3) Generalized weakness ICD Code: R53.1 - Weakness Status: Acute (4) Dehydration ICD Code: E86.0 - Dehydration Status: Resolved (5) Dementia ICD Code: F03.90 - Unspecified dementia without behavioral disturbance Status: Chronic (6) Anemia ICD Code: D64.9 - Anemia, unspecified Status: Chronic (7) Diabetes mellitus ICD Code: E11.9 - Type 2 diabetes mellitus without complications Status: Chronic (8) CKD (chronic kidney disease), stage III ICD Code: N18.3 - Chronic kidney disease, stage 3 (moderate) Status: Chronic (9) Fall from standing ICD Code: W19.XXXA - Unspecified fall, initial encounter Assessment and Plan 87 yo CF -Fever, she was started on ibrutinib last week for the CLL. Apparently this can cause fever. It also causes initial elevation in white blood cell count. Urine chest x-ray blood cultures all negative. Patient appears clinically stable and is eating well. Abx dc'ed. 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 Hemoglobin improved from 7.1-8.4 after 1 unit packed red blood cells. -Fall on 09/13 while patient's daughters were getting her out of bed for discharge home. No injury. Dr. Goodman has seen patient, appreciate consultation. Recommendations for baby aspirin at home. Vitamin b12 shot ordered. MRI brain showed encephalomalacia at the left temporal and occipital lobes, carotid ultrasound normal. Dr. Goodman recommends baby ASA for CVA px. EEG showing diffuse slowing, some slight triphasic appearance consistent with a metabolic encephalopathy. No seizure. Patient is at high risk for falls given her neuropathy, visual impairment, advanced age. Discussed with daughter she may need more help at home to prevent falls as she fell yesterday with 2 daughters assisting her. Daughter feels that they do not need more help at home, and that they will have two people at home with her at all times. Home health care has been ordered. Case management did provide them with information for private duty home health aide. -Dementia: Supportive care. -History of CVA-daughters deny. -Type 2 diabetes with neuropathy - family initially declined SSI. Then declining at bedtime Levemir which was held. Continue sliding scale insulin. BSG 100-300s. Cont Neurontin. -Hypothyroidism -cont Synthroid. DVT prophylaxis -family declined Lovenox 30 mg subcutaneous due to CKD. SCDs ordered. Discharge Planning Neurology has cleared patient to go home and f/u outpt in 30 days for holter and outpatient MRA of neck. Possible DC today after PT. Attending Statement This note was transcribed by scribe. I, Dr. Mai Erwin personally performed the history, physical exam, and medical decision making; and confirmed the accuracy of the information in the transcribed note. 35 minutes spent in DC planning and coordination of care. Authenticated by Dr. Mai Erwin on 09/15/17 at 13:09. Yina Bustos Sep 15, 2017 12:47 Mai Erwin MD Sep 15, 2017 13:10
[2017-09-15] MEDS ORDERED: ASPI81 PO (12:48)
== END 2017-09-15 14:20 | disposition home health service (06) | DRG 864 ==
LOC: PHED 19:00 → PHEDA 21:47 → PH3A 23:18 → OBSVTOIN 09-10 15:36
PROVIDERS: ADMIT Family Medicine; ATTEND Family Medicine
PROC: 30233N1 Transfusion of Nonautologous Red Blood Cells into Peripheral Vein, Percutaneous Approach (ICD-10-PCS; principal; 2017-09-13)
DX: R50.2 Drug induced fever (principal); R65.10 Systemic inflammatory response syndrome (SIRS) of non-infectious origin without acute organ dysfunction; E11.22 Type 2 diabetes mellitus with diabetic chronic kidney disease; C91.10 Chronic lymphocytic leukemia of B-cell type not having achieved remission; E11.40 Type 2 diabetes mellitus with diabetic neuropathy, unspecified; D69.59 Other secondary thrombocytopenia; E86.0 Dehydration; N18.3 Chronic kidney disease, stage 3 (moderate); G30.9 Alzheimer's disease, unspecified; F02.80 Dementia in other diseases classified elsewhere, unspecified severity, without behavioral disturbance, psychotic disturbance, mood disturbance, and anxiety; D63.0 Anemia in neoplastic disease; E11.319 Type 2 diabetes mellitus with unspecified diabetic retinopathy without macular edema; T45.1X5A Adverse effect of antineoplastic and immunosuppressive drugs, initial encounter; R53.1 Weakness; R27.8 Other lack of coordination; G89.29 Other chronic pain; E03.9 Hypothyroidism, unspecified; G93.89 Other specified disorders of brain; R62.7 Adult failure to thrive; E53.8 Deficiency of other specified B group vitamins; K21.9 Gastro-esophageal reflux disease without esophagitis; I12.9 Hypertensive chronic kidney disease with stage 1 through stage 4 chronic kidney disease, or unspecified chronic kidney disease; Z86.73 Personal history of transient ischemic attack (TIA), and cerebral infarction without residual deficits; Z86.69 Personal history of other diseases of the nervous system and sense organs; Z79.4 Long term (current) use of insulin
CPT/HCPCS: 36430; 36600; 70544; 70551; 70553; 71010; 76937; 80048; 80053; 81001; 82140; 82565; 82607; 82805; 82948; 83605; 83921; 84439; 84443; 85007; 85027; 85652; 86850; 86900; 86901; 86902; 86920; 86922; 87040; 87804; 93306; 93880; 95819; A9577; J0692; J1815; J3370; J3420; J7030; J7050; P9016

== ENCOUNTER 2018-08-31 19:15 | Inpatient (IN) ==
[2018-08-31] MEDS ORDERED: Morphine Inj 4 MG/ML Vial IV.PUSH ONE (19:27)
--- NOTE | 2018-08-31 19:37 | ED ---
HPI General Chief complaint: Fall Stated complaint: FALL Time Seen by Provider: 08/31/18 19:26 Source: patient and family Mode of arrival: EMS Limitations: altered mental status (The patient has a history of dementia. The patient is awake and alert. The patient is oriented to person and place. The patient's other medical history is provided by her granddaughter at the bedside. ) History of Present Illness HPI narrative: The patient is an 88 year old female who presents to the [facility] emergency department with a history of losing her balance and falling prior to arrival. The patient landed on her left side. The patient now has left hip pain. This was a witnessed fall by the patient's granddaughter who is currently at her side. The patient was unable to weight-bear after the fall and has severe left hip/groin pain. the patient denies ever having surgery on this left hip, however she has had right hip surgery 5 years ago. She denies hitting her head or losing consciousness, numbness or tingling to her arms or legs, or weakness of her arms or legs. The patient was brought in by ambulance services and did receive 6 mg of morphine prior to arrival for pain. The patient was also noted to have an elevated blood sugar at 414. The patient has a prior history of diabetes mellitus. The patient denies having any other extremity pain. She denies having any chest pain, chest pressure, or shortness of breath. She denies having any abdominal pain, vomiting, or recent diarrhea. Her medical history is significant for having chronic lymphocytic leukemia currently on chemotherapy. The patient is followed by Dr. Payne for this. The patient also has a history of anemia. The patient's granddaughter also reports that she was recently diagnosed with a breast cancer in the left breast that they are planning to remove by lumpectomy done by Dr. Briceno. Related Data Home Medications Medication Instructions Recorded Confirmed alprazolam 0.25 mg PO PRN 08/31/18 08/31/18 gabapentin 100 mg PO TID 08/31/18 08/31/18 insulin detemir U-100 [Levemir 15 unit SUBCUT HS 08/31/18 08/31/18 U-100 Insulin] [id number] cmplx#[id number] 08/31/18 [Vitamin D3 Complete] tramadol 50 mg PO Q6H 08/31/18 08/31/18 venetoclax [Venclexta] 100 mg PO DAILY 08/31/18 08/31/18 Allergies Allergy/AdvReac Type Severity Reaction Status Date / Time allopurinol Allergy Rash Verified 08/31/18 20:01 Review of Systems ROS: all other systems reviewed are negative [facility] Medical History Medical History Anemia (Acute) Breast cancer (Acute) Chronic lymphatic leukemia (Acute) Dementia (Acute) Diabetes (Acute) Diabetic nephropathy (Acute) Diabetic neuropathy (Acute) History of cholelithiasis (Acute) Hypothyroid (Acute) Macular degeneration (Acute) Stage 4 chronic kidney disease (Acute) Surgical History Surgical History History of appendectomy (Acute) History of cholecystectomy (Acute) History of hip surgery (Acute) History of hysterectomy (Acute) History of repair of hiatal hernia (Acute) Family History Family History Brother CAD (coronary artery disease) Diabetes mellitus Brother CAD (coronary artery disease) Sister Diabetes mellitus Social History Social History Substance History: No History of Abuse Second Hand Smoke Exposure: No Smoking Status: Former smoker How Often Do You Have a Drink Containing Alcohol: Never Recent Travel in [facility] within the Last 8 Weeks: No Recent Out of Country Travel within the Last 8 Weeks: No Exam Const General: cooperative, well developed and acute distress (Related to left hip pain.) mild Nutritional Appearance: well nourished Orientation: alert, awake and oriented x3 HENMT Head: normocephalic and atraumatic Nose: no nasal discharge and no epistaxis Mouth: moist mucous membranes Throat: posterior oropharynx normal and uvula midline Eyes Sclera: normal sclerae Pupils: PERRL Neck Neck: no meningeal signs, trachea midline and no JVD Resp Effort & Inspection: no use of accessory muscles Auscultation: clear to auscultation bilaterally Cardio Rate: regular rate Rhythm: regular rhythm Heart Sounds: no murmurs GI Inspection: non-distended Palpation: soft, no hepatosplenomegaly and nontender Back/Spine/Pelvis Back: no CVA tenderness Cervical Spine: cervical ROM normal and No cervical spinal tenderness Thoracic/Lumbar Spine: No thoracic spinal tenderness and No lumbar spinal tenderness Skin General: dry skin (warm) Neuro General: alert, awake and other (Grossly nonfocal.) Speech: speech normal Motor: no movement abnormalities noted Extrem General: normal to inspection (Except in the area of interest, the left leg which will be noted separately, 2+ pulses in all 4 extremities.), no calf tenderness, no clubbing, no cyanosis and no edema Left upper extremity: normal to inspection and full ROM Right lower extremity: normal to inspection and full ROM Left lower extremity: full ROM (Of the knee, ankle, foot. The patient has less than 3-second capillary refill of the digits. The patient has intact sensation of her digits. Soft compartments are noted on her left lower extremity.) and hip/thigh (The patient's left lower extremity is shortened, externally rotated with severe pain with any attempts at range of motion of the left hip. No open wounds are noted.) Psych Mood: congruent mood Affect: normal affect Judgment: judgment good Course Reevaluation(s) Reevaluation #1: The patient's case including history, pertinent physical examination findings, and laboratory studies were discussed with Dr. Bowles, the orthopedic physician. It was agreed that the patient would be admitted to the hospitalist service. Reevaluation #2: The patient's case including history, pertinent physical examination findings, and laboratory studies were discussed with Dr. Ordonez. It was agreed that the patient would be admitted to the hospitalist service. Initial Documented Vital Signs Temperature 98.3 F 08/31/18 19:22 Pulse Rate 83 08/31/18 19:22 Respiratory Rate 17 08/31/18 19:22 Blood Pressure 158/84 H 08/31/18 19:22 Pulse Oximetry 100 08/31/18 19:22 Last Documented Vital Signs Temperature 98.5 F 09/01/18 04:00 Pulse Rate 101 H 09/01/18 04:00 Respiratory Rate 16 09/01/18 04:00 Blood Pressure 150/65 H 09/01/18 04:00 Pulse Oximetry 99 09/01/18 04:00 Medical Decision Making MDM Narrative Medical decision making narrative: During the course of the patient's emergency department visit, the patient's history, examination, and differential diagnosis were reviewed with the patient. The patient was placed on a monitoring coordinator with oximetry and frequent blood pressure monitoring. The patient had IV access obtained and blood work sent for analysis. A diagnostic evaluation was started regarding the patient's fall with left hip pain. Accu-Chek at this facility at bedside is 299. The patient was initially provided normal saline of 500 mL bolus x1, morphine 2 mg IV, Zofran 4 mg IV. The patient's diagnostic studies are remarkable for a white count of 24.1 , Hemoglobin 7.5, platelets 60 in a patient with a history of CLL, the patient's last white blood cell count was 27.5, last hemoglobin 7.9, last platelet count was 69. All of these values are comparative to her prior levels. PT 10.2, PTT 25.6, chemistry is remarkable for chloride of 108, BUN 28, creatinine 1.60 in a patient with a similar history of renal insufficiency prior laboratory studies, glucose 298, calcium 7.6, albumin 3.2. Chest x-ray shows no acute cardiopulmonary disease, hip x-ray reveals an acute minimally displaced left intertrochanteric fracture. A call has been placed out to the orthopedic physician on-call regarding this patient's case. I spoke to Dr. Bowles regarding this patient's case. He requested that the patient be made n.p.o. after midnight. The patient's results were discussed with the patient, including the plan of care. I explained that further testing and/ or monitoring is indicated based on the patient's history, examination, and/ or laboratory findings. Therefore, I recommended admission for additional evaluation. The patient expressed understanding and was agreeable with this plan. The patient was admitted to the hospital in stable condition and sent to a bed under the care of the [facility] service. Medical Screen Exam Complete: Yes Emergency Medical Condition: Yes Differential Diagnosis Differential Diagnosis: Left hip fracture, versus dislocation, versus muscle strain, versus pelvis fracture Medical Records Medical records reviewed: Yes I reviewed the patient's medical records. Lab Data Lab results reviewed: Yes I reviewed the patient's lab results. Result diagrams: 08/31/18 19:37 08/31/18 19:37 Lab Results 08/31/18 08/31/18 08/31/18 Range/Units 19:37 19:37 19:37 WBC 24.1 H (4.0-11.0) th/mm3 RBC 2.20 L (4.00-5.30) mil/mm3 Hgb 7.5 L (11.6-15.3) gm/dL Hct 22.5 L (35.0-46.0) % MCV 102.3 H (80.0-100.0) fL MCH 33.9 (27.0-34.0) pg MCHC 33.1 (32.0-36.0) % RDW 15.8 (11.6-17.2) % Plt Count 60 L (150-450) th/mm3 MPV 8.2 (7.0-11.0) fL Prelim Diff (Auto) Slide review pending WBC Differential Manual diff final Seg Neuts % (Manual) 6 L (16-70) % Lymphocytes % (Manual) 91 H (9-44) % Monocytes % (Manual) 2 (0-8) % Eosinophils % (Manual) 1 (0-4) % Abs Neuts (Manual) 1.4 L (1.8-7.7) th/mm3 Nucleated RBCs/100 WBC 1 H (0-0) /100 WBC Differential Comment . Platelet Estimate Low L (Normal) Platelet Morphology Normal (Normal) PT 10.2 (9.8-11.6) sec INR 1.0 Ratio APTT 25.6 (23.4-31.7) sec Sodium 139 (136-145) meq/L Potassium 4.0 (3.5-5.1) meq/L Chloride 108 H (98-107) meq/L Carbon Dioxide 23.8 (21.0-32.0) meq/L Anion Gap 7 (5-15) meq/L BUN 28 H (7-18) mg/dL Creatinine 1.60 H (0.50-1.00) mg/dL Estimated GFR 31 L (>89) mL/min POC Glucose (68-110) mg/dl Random Glucose 298 H (74-106) mg/dL Calcium 7.6 L (8.5-10.1) mg/dL Total Bilirubin 0.5 (0.2-1.0) mg/dL AST 20 (15-37) U/L ALT 24 (10-53) U/L Alkaline Phosphatase 67 (45-117) U/L Total Protein 6.6 (6.4-8.2) g/dL Albumin 3.2 L (3.4-5.0) g/dL Blood Type Antibody Screen Antibody Identification MTS Gel Crossmatch 08/31/18 08/31/18 08/31/18 Range/Units 19:37 21:08 21:09 WBC (4.0-11.0) th/mm3 RBC (4.00-5.30) mil/mm3 Hgb (11.6-15.3) gm/dL Hct (35.0-46.0) % MCV (80.0-100.0) fL MCH (27.0-34.0) pg MCHC (32.0-36.0) % RDW (11.6-17.2) % Plt Count (150-450) th/mm3 MPV (7.0-11.0) fL Prelim Diff (Auto) WBC Differential Seg Neuts % (Manual) (16-70) % Lymphocytes % (Manual) (9-44) % Monocytes % (Manual) (0-8) % Eosinophils % (Manual) (0-4) % Abs Neuts (Manual) (1.8-7.7) th/mm3 Nucleated RBCs/100 WBC (0-0) /100 WBC Differential Comment Platelet Estimate (Normal) Platelet Morphology (Normal) PT (9.8-11.6) sec INR Ratio APTT (23.4-31.7) sec Sodium (136-145) meq/L Potassium (3.5-5.1) meq/L Chloride (98-107) meq/L Carbon Dioxide (21.0-32.0) meq/L Anion Gap (5-15) meq/L BUN (7-18) mg/dL Creatinine (0.50-1.00) mg/dL Estimated GFR (>89) mL/min POC Glucose 299 H (68-110) mg/dl Random Glucose (74-106) mg/dL Calcium (8.5-10.1) mg/dL Total Bilirubin (0.2-1.0) mg/dL AST (15-37) U/L ALT (10-53) U/L Alkaline Phosphatase (45-117) U/L Total Protein (6.4-8.2) g/dL Albumin (3.4-5.0) g/dL Blood Type B Negative Antibody Screen Negative Antibody Identification MTS Gel Crossmatch See Detail 08/31/18 08/31/18 09/01/18 Range/Units 21:09 22:14 03:13 WBC (4.0-11.0) th/mm3 RBC (4.00-5.30) mil/mm3 Hgb (11.6-15.3) gm/dL Hct (35.0-46.0) % MCV (80.0-100.0) fL MCH (27.0-34.0) pg MCHC (32.0-36.0) % RDW (11.6-17.2) % Plt Count (150-450) th/mm3 MPV (7.0-11.0) fL Prelim Diff (Auto) WBC Differential Seg Neuts % (Manual) (16-70) % Lymphocytes % (Manual) (9-44) % Monocytes % (Manual) (0-8) % Eosinophils % (Manual) (0-4) % Abs Neuts (Manual) (1.8-7.7) th/mm3 Nucleated RBCs/100 WBC (0-0) /100 WBC Differential Comment Platelet Estimate (Normal) Platelet Morphology (Normal) PT (9.8-11.6) sec INR Ratio APTT (23.4-31.7) sec Sodium (136-145) meq/L Potassium (3.5-5.1) meq/L Chloride (98-107) meq/L Carbon Dioxide (21.0-32.0) meq/L Anion Gap (5-15) meq/L BUN (7-18) mg/dL Creatinine (0.50-1.00) mg/dL Estimated GFR (>89) mL/min POC Glucose 323 H 271 H (68-110) mg/dl Random Glucose (74-106) mg/dL Calcium (8.5-10.1) mg/dL Total Bilirubin (0.2-1.0) mg/dL AST (15-37) U/L ALT (10-53) U/L Alkaline Phosphatase (45-117) U/L Total Protein (6.4-8.2) g/dL Albumin (3.4-5.0) g/dL Blood Type Antibody Screen Antibody Identification No Alloantibodies Identified MTS Gel Crossmatch Imaging Data Radiologist's impression: Chest X-Ray 08/31/18 19:26 CONCLUSION: No evidence of acute cardiopulmonary disease. Hip X-Ray 08/31/18 19:26 CONCLUSION: Acute, minimally displaced left intertrochanteric fracture. ECG Data Attestation: I personally reviewed and interpreted this ECG as follows: Interpretation: The patient had a EKG done on arrival. The patient's EKG reveals a sinus rhythm heart rate of 75, QRS duration 90 ms, QTC [address] segment elevation. Discharge Plan Discharge Disposition Patient Disposition: 30 Still Patient Discharge Details Diagnosis: Closed intertrochanteric fracture Physicians Team ED Provider: Germania Gomez Primary Care Provider: João Finnegan Attending Provider: Alfredito Beavers Other Providers: Ernie Bowles ; Chiquis Whatley Status ED Status: Left Department Discharge Information Discharge Date/Time: 08/31/18 22:04
[2018-08-31 19:57] LABS: Hematocrit 22.5 % (35.0-46.0); Hemoglobin 7.5 gm/dL (11.6-15.3); Mean Corpuscular HGB Conc 33.1 % (32.0-36.0); Mean Corpuscular Hemoglobin 33.9 pg (27.0-34.0); Mean Corpuscular Volume 102.3 fL (80.0-100.0); Mean Platelet Volume 8.2 fL (7.0-11.0); Platelet Count 60 th/mm3 (150-450); Red Cell Distribution Width 15.8 % (11.6-17.2); White Blood Count 24.1 th/mm3 (4.0-11.0)
[2018-08-31] MEDS ORDERED: Sodium Chlor 0.9% Inj 500 ML IV.SIG SCH (20:00)
[2018-08-31 20:11] LABS: Activated Partial Thrombo Time 25.6 sec (23.4-31.7); Prothrombin Time 10.2 sec (9.8-11.6)
[2018-08-31 20:22] LABS: Albumin 3.2 g/dL (3.4-5.0); Anion Gap 7 meq/L (5-15); Aspartate Aminotransferase 20 U/L (15-37); Blood Urea Nitrogen 28 mg/dL (7-18); Calcium 7.6 mg/dL (8.5-10.1); Carbon Dioxide 23.8 meq/L (21.0-32.0); Chloride 108 meq/L (98-107); Glomerular Filtration Rate 31 mL/min (>89); Glucose,Random 298 mg/dL (74-106); Sodium 139 meq/L (136-145)
[2018-08-31 20:23] LABS: Alanine Aminotransferase 24 U/L (10-53)
[2018-08-31 20:25] LABS: Alkaline Phosphatase 67 U/L (45-117); Total Protein 6.6 g/dL (6.4-8.2)
[2018-08-31 20:33] LABS: Eosinophils 1 % (0-4); Lymphocytes 91 % (9-44); Monocytes 2 % (0-8); Tallied Nucleated RBC 1 (0-0)
[2018-08-31 20:34] LABS: Platelet Morphology Normal (Normal)
--- NOTE | 2018-08-31 20:42 | XR ---
EXAM DATE: 08/31/2018 8:29 PM EST AGE/SEX: 88 years / Female INDICATIONS: Left hip pain. Fall. CLINICAL DATA: This is the patient's initial encounter. Patient reports that signs and symptoms have been present for 1 day and indicates a pain score of 10/10. MEDICAL/SURGICAL HISTORY: . Gastroesophageal reflux disease. Alzheimer?s. Thyroid disease. Diab etic retinopathy. Cerebrovascular accident. Seizures. Diabetic neuropathy. Hemmorhoids. Hiatal hernia . . Renal failure. Arthritis. Diabetes. Depression. Anxiety. Chronic lymphocytic leukemia. C hemotherpy. Measles. Blood transfusion . Cholecystectomy. Appendectomy. Hysterectomy. Left breast l umpectomy. Right hip surgery. COMPARISON: [facility], PELVIS AP ONLY, 05/28/2017. . FINDINGS: There is an acute, minimally displaced intertrochanteric fracture of the left femur. Femoral head is intact. No subluxation. The bony pelvis is intact and has normal morphology. Previous nail and naeem fixation of right intertrochanteric fracture, healed. CONCLUSION: Acute, minimally displaced left intertrochanteric fracture. Electronically signed by: Vishnu Lowery MD 08/31/2018 8:40 PM EST
--- NOTE | 2018-08-31 20:42 | XR ---
EXAM DATE: 08/31/2018 8:31 PM EST AGE/SEX: 88 years / Female INDICATIONS: Left hip pain. Fall. CLINICAL DATA: This is the patient's initial encounter. Patient reports that signs and symptoms have been present for 1 day and indicates a pain score of 0/10. MEDICAL/SURGICAL HISTORY: . Hemmorhoids. Hiatal hernia. . Renal failure. Arthritis. Di abetes. Depression. Anxiety. Chronic lymphocytic leukemia. Chemotherpy. Measles. Blood transfusion . Cholecystectomy. Appendectomy. Hysterectomy. Left breast lumpectomy. Right hip surgery. COMPARISON: [facility], CHEST SINGLE AP, 09/09/2017. . FINDINGS: A single AP view of the chest demonstrates the lungs to be symmetrically aerated without evidence of mass, infiltrate or effusion. The cardiomediastinal contours are unremarkable. Osseous structures a re intact. CONCLUSION: No evidence of acute cardiopulmonary disease. Electronically signed by: Vishnu Lowery MD 08/31/2018 8:40 PM EST
[2018-08-31] MEDS ORDERED: Bisacodyl 10 MG Supp RECTAL PRN (21:34)
[2018-08-31] MEDS ORDERED: Dextrose 50% in Water 50 ML Vial IV.PUSH PRN (21:34)
[2018-08-31] MEDS ORDERED: Sod Chloride 0.9% Inj 1,000 ML IV.CONT SCH (21:45)
[2018-08-31] MEDS ORDERED: Sodium Chloride 0.9% 2 ML Flush PRN IV.FLUSH (21:52)
[2018-08-31] MEDS ORDERED: Sodium Chlor 0.9% Inj 250 ML IV.SIG SCH (22:00)
[2018-08-31] MEDS ORDERED: Naloxone Inj 0.4 MG/ML Vial IV.PUSH PRN (22:20)
[2018-08-31] MEDS: Insulin Detemir Inj 1,000 UNIT/10 ML Vial SQ SCH (22:31)
--- NOTE | 2018-09-01 01:08 | P.HPIM ---
History of Present Illness Service: [facility] hospitalists . Primary Care Physician: João Finnegan MD Chief Complaint: Left hip pain History of Present Illness: Ms. Scott is an 88-year-old female with a history of breast cancer, chronic lymphatic leukemia, dementia, diabetes mellitus, diabetic neuropathy and nephropathy, hypothyroidism, and stage IV chronic kidney disease who presented to the emergency room following a mechanical fall at home with subsequent left hip pain. She was found to have a minimally displaced left trochanter fracture and was admitted to the hospitalist service for medical management with orthopedic consult for surgical repair. Patient is seen in her hospital room after being turned for cleaning by nursing staff. She is in exquisite pain, sharp to left hip. Obviously, movement making her pain worse. She reports that she was stepping outside of her home down a few steps and lost her footing and fell landing on her left hip. She had abrupt onset of left hip pain with inability to bear weight. She reports history of falling frequently over the past month. She denies any recent fever , chills, chest pain, or shortness of breath. She reports a chronic cough over the past month. Chest x-ray in the ED was negative. Oxygen saturation 96-100% on room air. . Inpatient Certification: I certify that the inpatient services were ordered in accordance with Medicare regulations governing the order. This includes certification that hospital inpatient services are reasonable and necessary and in the case of services not specified as inpatient-only under 42 CFR 419.22(n), that they are appropriately provided as inpatient services in accordance to with the 2-midnight benchmark under 43 CFR 412.3(e) Estimated Total Length of Stay (Days): 3 Plans for Post Hospital Care: Home Review of Systems All other systems reviewed negative except as stated in HPI PMFSH - History History Provided By: Family Member - Medical History Medical History: Medical History (Last Updated 09/01/18 @ 01:06 by ZURI Marrero) Anemia Breast cancer Chronic lymphatic leukemia Dementia Diabetes Diabetic nephropathy Diabetic neuropathy History of cholelithiasis Hypothyroid Macular degeneration Stage 4 chronic kidney disease - Surgical History Surgical History: Surgical History (Last Updated 09/01/18 @ 01:06 by ZURI Marrero) History of appendectomy History of cholecystectomy History of hip surgery History of hysterectomy History of repair of hiatal hernia - Family History Family History: Family History (Last Updated 09/01/18 @ 01:21 by ZURI Marrero) Brother CAD (coronary artery disease) Diabetes mellitus Brother CAD (coronary artery disease) Sister Diabetes mellitus - Social History I have reviewed the patient's Social History: Yes - Tobacco History Second Hand Smoke Exposure: No Smoking Status: Former smoker - Alcohol History How Often Do You Have a Drink Containing Alcohol: Never - Substance Use History Substance History: No History of Abuse - Travel History Recent Travel in the [place] Within the Last 8 Weeks: No Recent Travel Out of the Country Within the Last 8 Weeks: No - Immunization History Tetanus Immunization: <5 Years Hx Influenza Vaccine This Season: No Medications and Allergies Active Medications: Active Medications Hydrocodone Bitart/Acetaminophen ([place] 5/325) 1 tab PO Q4H PRN PRN Reason: PAIN SCALE 3 TO 5 Hydrocodone Bitart/Acetaminophen ([place] 7.5/325) 1 tab PO Q4H PRN PRN Reason: PAIN SCALE 6 TO 10 Al Hydroxide/Mg Hydroxide (Milk Of Magnesia Liq) 30 ml PO Q12H PRN PRN Reason: Mild Constipation Bisacodyl (Dulcolax Supp) 10 mg RECTAL DAILY PRN PRN Reason: SEVERE CONSITIPATION Dextrose (D50w Vial) 50 ml IV.PUSH UNSCH PRN PRN Reason: PER HYPOGLYCEMIA PROTOCOL Gabapentin (Neurontin) 100 mg PO BID JESSICA Glucagon (Glucagon Inj) 1 mg OTHER PRN PRN PRN Reason: for Hypoglycemia Protocol Sodium Chloride (Ns Inj) 250 mls @ 15 mls/hr IV.SIG ONCE JESSICA Stop: 09/01/18 14:39 Sodium Chloride (Ns Inj) 1,000 mls @ 50 mls/hr IV.CONT .Q20H [facility] Insulin Aspart (Novolog Insulin Correctional Sugar Inj) 0 unit SQ ACHS [facility]; Protocol Insulin Detemir (Levemir Inj) 8 unit SQ HS [facility] Last Admin: 08/31/18 22:31 Dose: 8 unit Lactulose (Lactulose Liq) 30 ml PO DAILY PRN PRN Reason: SEVERE CONSITIPATION Morphine Sulfate (Morphine Inj) 2 mg IV.PUSH Q3H PRN PRN Reason: BREAKTHROUGH PAIN Naloxone HCl (Narcan Inj) 0.4 mg IV.PUSH UNSCH PRN PRN Reason: SEE LABEL COMMENTS Sennosides (Senokot) 17.2 mg PO Q12H PRN PRN Reason: Moderate Constipation Sodium Chloride (Ns Flush) 2 ml IV.FLUSH BID JESSICA Sodium Chloride (Ns Flush) 2 ml IV.FLUSH PRN PRN PRN Reason: FLUSH AFTER USING IV ACCESS Allergies Allergy/AdvReac Type Severity Reaction Status Date / Time allopurinol Allergy Rash Verified 08/31/18 20:01 Home Medications Medication Instructions Recorded Confirmed Type alprazolam 0.25 mg PO PRN 08/31/18 08/31/18 History gabapentin 100 mg PO TID 08/31/18 08/31/18 History insulin detemir U-100 [Levemir 15 unit SUBCUT HS 08/31/18 08/31/18 History U-100 Insulin] [id number] 08/31/18 History [Vitamin D3 Complete] tramadol 50 mg PO Q6H 08/31/18 08/31/18 History venetoclax [Venclexta] 100 mg PO DAILY 08/31/18 08/31/18 History Exam Vital signs: Vital Signs 08/31/18 19:22 08/31/18 21:00 08/31/18 22:03 Temperature 98.3 F Pulse Rate 83 98 H 99 H Respiratory Rate 17 16 15 Blood Pressure 158/84 H 162/71 H 167/85 H Pulse Oximetry 100 99 98 Intake & Output 08/31/18 08/31/18 09/01/18 06:59 18:59 06:59 Intake Total 100 / 100 Balance 100 / 100 Weight 58.06 kg Intake: IV 100 / 100 NS Inj 500 ML @ 50 mls/hr IV. 100 / 100 SIG .Q10H JESSICA Rx#:[id number] Other: Date of Last Bowel Movement 08/31/18 Weight On Admission 58.06 kg Narrative: GENERAL: This is a well-nourished, well-developed patient, in no apparent distress. SKIN: No rashes or lesions. Cool and dry. HEAD: Atraumatic. Normocephalic. EYES: No scleral icterus. No injection or drainage. ENT: Nose without bleeding, purulent drainage. NECK: Trachea midline. No JVD or lymphadenopathy. CARDIOVASCULAR: Regular rate and rhythm without murmurs, gallops, or rubs. RESPIRATORY: Clear to auscultation. Breath sounds equal bilaterally. No wheezes , rales, or rhonchi. GASTROINTESTINAL: Abdomen soft, non-tender, nondistended. No guarding. MUSCULOSKELETAL: Extremities without clubbing, cyanosis, or edema. No calf tenderness. Severe pain with rolling over in bed. NEUROLOGICAL: Awake and alert, oriented to self and situation. Motor and sensory grossly within normal limits. Normal speech. . Results - Labs CBC & Chem 7: 08/31/18 19:37 08/31/18 19:37 Labs: Short CBC 08/31/18 Range/Units 19:37 WBC 24.1 H (4.0-11.0) th/mm3 Hgb 7.5 L (11.6-15.3) gm/dL Hct 22.5 L (35.0-46.0) % Plt Count 60 L (150-450) th/mm3 BMP 08/31/18 19:37 Sodium 139 Potassium 4.0 Chloride 108 H Carbon Dioxide 23.8 BUN 28 H Creatinine 1.60 H Calcium 7.6 L Liver Function 08/31/18 Range/Units 19:37 Total Bilirubin 0.5 (0.2-1.0) mg/dL AST 20 (15-37) U/L ALT 24 (10-53) U/L Alkaline Phosphatase 67 (45-117) U/L Albumin 3.2 L (3.4-5.0) g/dL - Imaging Impressions Chest X-Ray 08/31/18 19:26 CONCLUSION: No evidence of acute cardiopulmonary disease. Hip X-Ray 08/31/18 19:26 CONCLUSION: Acute, minimally displaced left intertrochanteric fracture. Caprini VTE Risk Assessment Caprini VTE Risk Assessment: Moderate/High Risk (score >= 2) Caprini Risk Assessment Model: Point Value = 1 Point Value = 2 Point Value = 3 Point Value = 5 Age 41-60 Minor surgery BMI > 25 kg/m2 Swollen legs Varicose veins or History of unexplained or recurrent spontaneous Oral contraceptives or hormone replacement Sepsis (< 1 month) Serious lung disease, including pneumonia (< 1 month) Abnormal pulmonary function Acute myocardial infarction Congestive heart failure (< 1 month) History of inflammatory bowel disease Medical patient at bed rest Age 61-74 Arthroscopic surgery Major open surgery (> 45 min) Laparoscopic surgery (> 45 min) Malignancy Confined to bed (> 72 hours) Immobilizing plaster cast Central venous access Age >= 75 History of VTE Family history of VTE Factor V Leiden Prothrombin [id number] Lupus anticoagulant Anticardiolipin antibodies Elevated serum homocysteine Heparin-induced thrombocytopenia Other congenital or acquired thrombophilia Stroke (< 1 month) Elective arthroplasty Hip, pelvis, or leg fracture Acute spinal cord injury (< 1 month) Prophylaxis Regimen: Total Risk Factor Score Risk Level Prophylaxis Regimen 0-1 Low Early ambulation 2 Moderate Order ONE of the following: *Sequential Compression Device (SCD) *Heparin 5000 units SQ BID 3-4 Higher Order ONE of the following medications: *Heparin 5000 units SQ TID *Enoxaparin/Lovenox 40 mg SQ daily (WT < 150 kg, CrCl > 30 mL/min) *Enoxaparin/Lovenox 30 mg SQ daily (WT < 150 kg, CrCl > 10-29 mL/min) *Enoxaparin/Lovenox 30 mg SQ BID (WT < 150 kg, CrCl > 30 mL/min) AND/OR *Sequential Compression Device (SCD) 5 or more Highest Order ONE of the following medications: *Heparin 5000 units SQ TID (Preferred with Epidurals) *Enoxaparin/Lovenox 40 mg SQ daily (WT < 150 kg, CrCl > 30 mL/min) *Enoxaparin/Lovenox 30 mg SQ daily (WT < 150 kg, CrCl > 10-29 mL/min) *Enoxaparin/Lovenox 30 mg SQ BID (WT < 150 kg, CrCl > 30 mL/min) AND *Sequential Compression Device (SCD) Assessment and Plan - Plan Ms. Scott is an 88-year-old female with a history of breast cancer, chronic lymphatic leukemia, dementia, diabetes mellitus, diabetic neuropathy and nephropathy, hypothyroidism, and stage IV chronic kidney disease who presented to the emergency room following a mechanical fall at home with subsequent left hip pain. She was found to have a minimally displaced left intertrochanteric fracture and was admitted to the hospitalist service for medical management with orthopedic consult for surgical repair. Left intertrochanteric fracture, minimally displaced -Consult to orthopedic surgery -appreciate assistance -N.p.o. -Analgesics: Hydrocodone 5/325-7.5/3 25 mg every 4 hours as needed per pain scale and morphine 2 mg IV push every 3 hours as needed for breakthrough pain Type 2 Diabetes Mellitus -Continue home Levemir but reduce dosage to 8 units at bedtime during acute hospitalization - Accu-Cheks before meals and at bedtime with low-dose NovoLog sliding scale coverage - Hypoglycemia protocol - Monitor trends and blood glucose readings and adjust treatments as indicated Chronic lymphocytic leukemia currently on chemotherapy -C 24.1, hemoglobin 7.5, hematocrit 22.5, platelet count 60,000 -Sees Dr. Payne as an outpatient -Consult oncology -appreciate assistance Chronic kidney disease -BUN 28, creatinine 1.60, EGFR 31 -Gentle IV fluid hydration with normal saline at 50 cc/h -Repeat labs in a.m. and follow results -Avoid nephrotoxins Left breast cancer -Follow-up with Dr. Briceno for lumpectomy as an outpatient Diabetic neuropathy -Continue home gabapentin DVT prophylaxis -SCDs Discussed Condition With: RN, Dr. Ordonez, and patient . H&P: Quality - VTE Deep Vein Thrombosis/Pulmonary Embolism Present on Admission: No
[2018-09-01] MEDS: Morphine Inj 4 MG/ML Vial IV.PUSH PRN ×3 (01:13→17:35)
--- NOTE | 2018-09-01 06:43 | P.PNOP ---
Subjective Interval history: Trip and fall from home. She was walking down stairs to go to the car not using her walker and had a slip and landed onto the ground. She complains of left hip pain. X-rays confirm left intertrochanteric femur fracture. She has a history of breast cancer, chronic lymphatic leukemia, dementia, diabetes mellitus, diabetic neuropathy and nephropathy, hypothyroidism, and stage IV chronic kidney disease. Physical Exam Vital signs: Vital Signs 08/31/18 19:22 08/31/18 21:00 08/31/18 22:03 Temperature 98.3 F Pulse Rate 83 98 H 99 H Respiratory Rate 17 16 15 Blood Pressure 158/84 H 162/71 H 167/85 H Pulse Oximetry 100 99 98 08/31/18 23:23 09/01/18 00:00 09/01/18 04:00 Temperature 99.2 F 98.5 F Pulse Rate 100 H 109 H 101 H Respiratory Rate 16 16 Blood Pressure 157/68 H 150/65 H Pulse Oximetry 96 99 Intake & Output 08/31/18 08/31/18 09/01/18 06:59 18:59 06:59 Intake Total 100 / 100 Balance 100 / 100 Weight 59.1 kg Intake: IV 100 / 100 NS Inj 500 ML @ 50 mls/hr IV. 100 / 100 SIG .Q10H JESSICA Rx#:[id number] Other: Date of Last Bowel Movement 08/31/18 Weight On Admission 58.06 kg Narrative: Bilateral upper extremities: Full range of motion neurovascular intact Right lower extremity: No pain with range of motion or laxity. Left lower extremity: Pain to palpation of hip. No pain with palpation of knee or ankle. Distally intact sensation with active dorsiflexion and plantar flexion of foot Results - Labs CBC & Chem 7: 08/31/18 19:37 08/31/18 19:37 Laboratory Results - last 24 hr 08/31/18 08/31/18 08/31/18 19:37 19:37 19:37 WBC 24.1 H RBC 2.20 L Hgb 7.5 L Hct 22.5 L MCV 102.3 H MCH 33.9 MCHC 33.1 RDW 15.8 Plt Count 60 L MPV 8.2 Prelim Diff (Auto) Slide review pending WBC Differential Manual diff final Seg Neuts % (Manual) 6 L Lymphocytes % (Manual) 91 H Monocytes % (Manual) 2 Eosinophils % (Manual) 1 Abs Neuts (Manual) 1.4 L Nucleated RBCs/100 WBC 1 H Differential Comment . Platelet Estimate Low L Platelet Morphology Normal PT 10.2 INR 1.0 APTT 25.6 Sodium 139 Potassium 4.0 Chloride 108 H Carbon Dioxide 23.8 Anion Gap 7 BUN 28 H Creatinine 1.60 H Estimated GFR 31 L POC Glucose Random Glucose 298 H Calcium 7.6 L Total Bilirubin 0.5 AST 20 ALT 24 Alkaline Phosphatase 67 Total Protein 6.6 Albumin 3.2 L Blood Type Antibody Screen Antibody Identification MTS Gel Crossmatch 08/31/18 08/31/18 08/31/18 19:37 21:08 21:09 WBC RBC Hgb Hct MCV MCH MCHC RDW Plt Count MPV Prelim Diff (Auto) WBC Differential Seg Neuts % (Manual) Lymphocytes % (Manual) Monocytes % (Manual) Eosinophils % (Manual) Abs Neuts (Manual) Nucleated RBCs/100 WBC Differential Comment Platelet Estimate Platelet Morphology PT INR APTT Sodium Potassium Chloride Carbon Dioxide Anion Gap BUN Creatinine Estimated GFR POC Glucose 299 H Random Glucose Calcium Total Bilirubin AST ALT Alkaline Phosphatase Total Protein Albumin Blood Type B Negative Antibody Screen Negative Antibody Identification MTS Gel Crossmatch See Detail 08/31/18 08/31/18 09/01/18 21:09 22:14 03:13 WBC RBC Hgb Hct MCV MCH MCHC RDW Plt Count MPV Prelim Diff (Auto) WBC Differential Seg Neuts % (Manual) Lymphocytes % (Manual) Monocytes % (Manual) Eosinophils % (Manual) Abs Neuts (Manual) Nucleated RBCs/100 WBC Differential Comment Platelet Estimate Platelet Morphology PT INR APTT Sodium Potassium Chloride Carbon Dioxide Anion Gap BUN Creatinine Estimated GFR POC Glucose 323 H 271 H Random Glucose Calcium Total Bilirubin AST ALT Alkaline Phosphatase Total Protein Albumin Blood Type Antibody Screen Antibody Identification No Alloantibodies Identified MTS Gel Crossmatch - Imaging Impressions Chest X-Ray 08/31/18 19:26 CONCLUSION: No evidence of acute cardiopulmonary disease. Hip X-Ray 08/31/18 19:26 CONCLUSION: Acute, minimally displaced left intertrochanteric fracture. Assessment and Plan - Assessment and Plan Left intertrochanteric femur fracture Patient's H&H is 7.5/22.5. She is in need of 2 units of blood which is being transferred in from [facility] due to her CLL. Blood is still not in-house. We will keep her n.p.o. and if blood is able to be received and given this morning we will plan on surgery late morning. If there is a delay we will resume her diet and make her n.p.o. after midnight tonight Bedrest Incentive spirometry Bilateral SCD's and SUNIL hose to right lower extremity.
[2018-09-01 07:15] LABS: Hematocrit 21.5 % (35.0-46.0); Hemoglobin 7.3 gm/dL (11.6-15.3); Mean Corpuscular HGB Conc 33.7 % (32.0-36.0); Mean Platelet Volume 7.8 fL (7.0-11.0); Platelet Count 52 th/mm3 (150-450); Red Blood Count 2.13 mil/mm3 (4.00-5.30); Red Cell Distribution Width 15.9 % (11.6-17.2); White Blood Count 29.2 th/mm3 (4.0-11.0)
--- NOTE | 2018-09-01 07:31 | P.CONOP ---
[facility] Orthopedics Consult Note - [facility] Consult date: 09/01/18 Chief complaint: Left intertrochanteric fracture Narrative: Maya is an 88-year-old female who has a history of breast cancer, CLL, early dementia, diabetes, neuropathy, hypothyroidism, and chronic kidney disease. She had a mechanical fall. She was coming down steps when she fell. She landed on her left hip. She had immediate left hip pain. She is unable to stand or ambulate. She presented to the emergency room where x-rays revealed a displaced left hip intertrochanteric fracture. She is currently awake on the orthopedic floor. Her daughter and granddaughter are with her at bedside. Pain is severe and intense with movement. Pain is improved with rest. She denies dizziness, syncope, or loss of consciousness. She has a history of previous right hip intertrochanteric fracture approximately 3 years ago treated with surgical fixation.. Review of Systems Patient denies fevers, chills, weight loss, headache, visual changes, hearing loss, chest pain, palpitations, shortness of breath, nausea, vomiting, no urinary changes, diarrhea, bowel changes, neck pain, back pain, skin rashes, weakness of extremities, easy bleeding, enlarged lymph nodes, numbness of extremities, anxiety, or depression. She complains of left hip pain. Patient's social history, past medical history, and family history were reviewed on chart and with patient. PENDING SALE TO [facility] - History History Provided By: Family Member - Medical History Medical History: Medical History (Last Reviewed 09/01/18 @ 07:28 by Bg Fulton MD) Anemia Breast cancer Chronic lymphatic leukemia Dementia Diabetes Diabetic nephropathy Diabetic neuropathy History of cholelithiasis Hypothyroid Macular degeneration Stage 4 chronic kidney disease - Surgical History Surgical History: Surgical History (Last Reviewed 09/01/18 @ 07:28 by Bg Fulton MD) History of appendectomy History of cholecystectomy History of hip surgery History of hysterectomy History of repair of hiatal hernia - Family History Family History: Family History (Last Reviewed 09/01/18 @ 07:28 by Bg Fulton MD) Brother CAD (coronary artery disease) Diabetes mellitus Brother CAD (coronary artery disease) Sister Diabetes mellitus - Social History I have reviewed the patient's Social History: Yes - Tobacco History Second Hand Smoke Exposure: No Smoking Status: Former smoker - Alcohol History How Often Do You Have a Drink Containing Alcohol: Never - Substance Use History Substance History: No History of Abuse - Travel History Recent Travel in the [place] Within the Last 8 Weeks: No Recent Travel Out of the Country Within the Last 8 Weeks: No - Immunization History Tetanus Immunization: <5 Years Hx Influenza Vaccine This Season: No Medications and Allergies Active Medications: Active Medications Hydrocodone Bitart/Acetaminophen (Grabill 5/325) 1 tab PO Q4H PRN PRN Reason: PAIN SCALE 3 TO 5 Hydrocodone Bitart/Acetaminophen (Grabill 7.5/325) 1 tab PO Q4H PRN PRN Reason: PAIN SCALE 6 TO 10 Al Hydroxide/Mg Hydroxide (Milk Of Magnesia Liq) 30 ml PO Q12H PRN PRN Reason: Mild Constipation Bisacodyl (Dulcolax Supp) 10 mg RECTAL DAILY PRN PRN Reason: SEVERE CONSITIPATION Dextrose (D50w Vial) 50 ml IV.PUSH UNSCH PRN PRN Reason: PER HYPOGLYCEMIA PROTOCOL Gabapentin (Neurontin) 100 mg PO BID JESSICA Glucagon (Glucagon Inj) 1 mg OTHER PRN PRN PRN Reason: for Hypoglycemia Protocol Sodium Chloride (Ns Inj) 250 mls @ 15 mls/hr IV.SIG ONCE JESSICA Stop: 09/01/18 14:39 Sodium Chloride (Ns Inj) 1,000 mls @ 50 mls/hr IV.CONT .Q20H JESSICA Insulin Aspart (Novolog Insulin Correctional Sugar Inj) 0 unit SQ ACHS JESSICA; Protocol Insulin Detemir (Levemir Inj) 8 unit SQ HS JESSICA Last Admin: 08/31/18 22:31 Dose: 8 unit Lactulose (Lactulose Liq) 30 ml PO DAILY PRN PRN Reason: SEVERE CONSITIPATION Morphine Sulfate (Morphine Inj) 2 mg IV.PUSH Q3H PRN PRN Reason: BREAKTHROUGH PAIN Last Admin: 09/01/18 01:13 Dose: 2 mg Naloxone HCl (Narcan Inj) 0.4 mg IV.PUSH UNSCH PRN PRN Reason: SEE LABEL COMMENTS Pt Own Venclexta 100 (Mg) 0 each PO DAILY [facility] Sennosides (Senokot) 17.2 mg PO Q12H PRN PRN Reason: Moderate Constipation Sodium Chloride (Ns Flush) 2 ml IV.FLUSH BID JESSICA Sodium Chloride (Ns Flush) 2 ml IV.FLUSH PRN PRN PRN Reason: FLUSH AFTER USING IV ACCESS Allergies Allergy/AdvReac Type Severity Reaction Status Date / Time allopurinol Allergy Rash Verified 08/31/18 20:01 Home Medications Medication Instructions Recorded Confirmed Type alprazolam 0.25 mg PO PRN 08/31/18 08/31/18 History gabapentin 100 mg PO TID 08/31/18 08/31/18 History insulin detemir U-100 [Levemir 15 unit SUBCUT HS 08/31/18 08/31/18 History U-100 Insulin] [id number] 08/31/18 History [Vitamin D3 Complete] tramadol 50 mg PO Q6H 08/31/18 08/31/18 History venetoclax [Venclexta] 100 mg PO DAILY 08/31/18 08/31/18 History Exam Vital signs: Vital Signs 08/31/18 19:22 08/31/18 21:00 08/31/18 22:03 Temperature 98.3 F Pulse Rate 83 98 H 99 H Respiratory Rate 17 16 15 Blood Pressure 158/84 H 162/71 H 167/85 H Pulse Oximetry 100 99 98 08/31/18 23:23 09/01/18 00:00 09/01/18 04:00 Temperature 99.2 F 98.5 F Pulse Rate 100 H 109 H 101 H Respiratory Rate 16 16 Blood Pressure 157/68 H 150/65 H Pulse Oximetry 96 99 Intake & Output 08/31/18 09/01/18 09/01/18 18:59 06:59 18:59 Intake Total 100 / 100 Balance 100 / 100 Weight 59.1 kg Intake: IV 100 / 100 NS Inj 500 ML @ 50 mls/hr IV. 100 / 100 SIG .Q10H [facility] Rx#:[id number] Other: Date of Last Bowel Movement 08/31/18 Weight On Admission 58.06 kg Narrative: Maya is an 88-year-old female. General: Awake and alert. No acute distress. Appears well-developed well- nourished Head: Normocephalic, atraumatic pupils are equal Neck: Soft, nontender, trachea midline Abdomen: Soft, nondistended Examination of right arm reveals no pain or deformity with shoulder, elbow, or wrist motion. Skin is intact. Radial pulse is palpable. Normal capillary refill in fingers. Sensation is intact in radial, ulnar, and median nerve distributions. Dredging Inspector strength is +5. No lymphadenopathy noted. Examination of left arm reveals no pain or deformity with shoulder, elbow, or wrist motion. Skin is intact. Radial pulse is palpable. Normal capillary refill in fingers. Sensation is intact in radial, ulnar, and median nerve distributions. Dredging Inspector strength is +5. No lymphadenopathy noted. Examination of left lower extremity reveals pain with any hip motion. She is tender to palpation over her proximal femur. She has no tenderness around her knee or ankle. Skin is intact. Sensation is intact in left foot. Dorsalis pedis pulse is palpable. Normal capillary refill and feet. Thigh and calf compartments are soft. No lymphadenopathy noted. Examination of right lower extremity reveals no pain or deformity with hip, knee , or ankle motion. Skin is intact. Sensation is intact in right foot. Dorsalis pedis pulse is palpable. Normal capillary refill and feet. Thigh and calf compartments are soft. No lymphadenopathy noted. +5 strength of ankle dorsiflexion and plantarflexion. Results - Labs Result Diagrams: 09/01/18 06:21 08/31/18 19:37 Labs: Laboratory Results - last 24 hr 08/31/18 08/31/18 08/31/18 19:37 19:37 19:37 WBC 24.1 H RBC 2.20 L Hgb 7.5 L Hct 22.5 L MCV 102.3 H MCH 33.9 MCHC 33.1 RDW 15.8 Plt Count 60 L MPV 8.2 Prelim Diff (Auto) Slide review pending WBC Differential Manual diff final Seg Neuts % (Manual) 6 L Lymphocytes % (Manual) 91 H Monocytes % (Manual) 2 Eosinophils % (Manual) 1 Abs Neuts (Manual) 1.4 L Nucleated RBCs/100 WBC 1 H Differential Comment . Platelet Estimate Low L Platelet Morphology Normal PT 10.2 INR 1.0 APTT 25.6 Sodium 139 Potassium 4.0 Chloride 108 H Carbon Dioxide 23.8 Anion Gap 7 BUN 28 H Creatinine 1.60 H Estimated GFR 31 L POC Glucose Random Glucose 298 H Calcium 7.6 L Total Bilirubin 0.5 AST 20 ALT 24 Alkaline Phosphatase 67 Total Protein 6.6 Albumin 3.2 L Blood Type Antibody Screen Antibody Identification MTS Gel Crossmatch 08/31/18 08/31/18 08/31/18 19:37 21:08 21:09 WBC RBC Hgb Hct MCV MCH MCHC RDW Plt Count MPV Prelim Diff (Auto) WBC Differential Seg Neuts % (Manual) Lymphocytes % (Manual) Monocytes % (Manual) Eosinophils % (Manual) Abs Neuts (Manual) Nucleated RBCs/100 WBC Differential Comment Platelet Estimate Platelet Morphology PT INR APTT Sodium Potassium Chloride Carbon Dioxide Anion Gap BUN Creatinine Estimated GFR POC Glucose 299 H Random Glucose Calcium Total Bilirubin AST ALT Alkaline Phosphatase Total Protein Albumin Blood Type B Negative Antibody Screen Negative Antibody Identification MTS Gel Crossmatch See Detail 08/31/18 08/31/18 09/01/18 21:09 22:14 03:13 WBC RBC Hgb Hct MCV MCH MCHC RDW Plt Count MPV Prelim Diff (Auto) WBC Differential Seg Neuts % (Manual) Lymphocytes % (Manual) Monocytes % (Manual) Eosinophils % (Manual) Abs Neuts (Manual) Nucleated RBCs/100 WBC Differential Comment Platelet Estimate Platelet Morphology PT INR APTT Sodium Potassium Chloride Carbon Dioxide Anion Gap BUN Creatinine Estimated GFR POC Glucose 323 H 271 H Random Glucose Calcium Total Bilirubin AST ALT Alkaline Phosphatase Total Protein Albumin Blood Type Antibody Screen Antibody Identification No Alloantibodies Identified MTS Gel Crossmatch 09/01/18 06:21 WBC 29.2 H RBC 2.13 L Hgb 7.3 L Hct 21.5 L MCV 101.0 H MCH 34.0 MCHC 33.7 RDW 15.9 Plt Count 52 L MPV 7.8 Prelim Diff (Auto) Manual diff required WBC Differential Seg Neuts % (Manual) Lymphocytes % (Manual) Monocytes % (Manual) Eosinophils % (Manual) Abs Neuts (Manual) Nucleated RBCs/100 WBC Differential Comment . Platelet Estimate Platelet Morphology PT INR APTT Sodium Potassium Chloride Carbon Dioxide Anion Gap BUN Creatinine Estimated GFR POC Glucose Random Glucose Calcium Total Bilirubin AST ALT Alkaline Phosphatase Total Protein Albumin Blood Type Antibody Screen Antibody Identification MTS Gel Crossmatch - Diagnostic results Imaging: Impressions Chest X-Ray 08/31/18 19:26 CONCLUSION: No evidence of acute cardiopulmonary disease. Hip X-Ray 08/31/18 19:26 CONCLUSION: Acute, minimally displaced left intertrochanteric fracture. Hip x-ray: report reviewed, image reviewed Assessment and Plan - Assessment and Plan Maya has a left hip intertrochanteric fracture. Treatment options were discussed with patient and her family. At this point I would recommend reduction and intramedullary nail fixation of left femur. The risk and benefits of surgery were discussed. 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 The risk and benefits of surgery were discussed in depth with patient. The risk of surgery include bleeding, infection, injuries to arteries, nerves, or blood vessels, infection, wound complications, nonunion, malunion, painful hardware, and need for further surgery. I also discussed medical complications including blood clots, pneumonia, stroke, heart attack, and . Informed consent was obtained and all questions were answered. Anemia--transfusion packed red blood cells is pending--delayed secondary to patient's antibodies N.p.o.--plan on surgery this morning if medically cleared Calcium and vitamin D supplementation Physical therapy consult Follow-up with Dr. Fulton in 2 weeks SCDs, Catrachita Hollingsworth postoperatively A mid-level provider in my office (nurse practitioner or physician blood and plasma laboratory assistant) may see this patient on follow-up visits and continue to implement the objectives of this plan including: Starting or adjusting medications, injections , cast application, orthotics, brace application, physical therapy, radiological studies (including x-ray, MRI, CT, ultrasound, bone scan), vascular studies, neurologic studies, specialist consultation, and proceeding with surgical management, as appropriate.
[2018-09-01 07:44] LABS: Alanine Aminotransferase 24 U/L (10-53); Albumin 3.1 g/dL (3.4-5.0); Alkaline Phosphatase 58 U/L (45-117); Anion Gap 7 meq/L (5-15); Aspartate Aminotransferase 18 U/L (15-37); Blood Urea Nitrogen 24 mg/dL (7-18); Calcium 7.5 mg/dL (8.5-10.1); Carbon Dioxide 24.1 meq/L (21.0-32.0); Chloride 110 meq/L (98-107); Glomerular Filtration Rate 33 mL/min (>89); Glucose,Random 185 mg/dL (74-106); Potassium 4.1 meq/L (3.5-5.1); Sodium 141 meq/L (136-145); Total Protein 6.2 g/dL (6.4-8.2)
--- NOTE | 2018-09-01 08:22 | P.PN ---
Subjective Interval history: This is a pleasant 88 y/o Female with history of Breast Cancer, Chronic Lymphatic Leukemia, Dementia Dm II, Ms. diabetic neuropathy and nephropathy, hypothyroidism, and stage IV chronic kidney disease who presented to the emergency room following a mechanical fall at home with subsequent left hip pain. She was found to have a minimally displaced left trochanter fracture and was admitted to the hospitalist service for medical management with orthopedic consult for surgical repair. 09/01: Seen in her bedroom, status post Left hip reduction and Intramedullary fixation, no nausea, vomit or diarrhea, continue present care. has Alzheimer her Daughter and Granddaughter in the room. Physical Exam Vital signs: Vital Signs 08/31/18 19:22 08/31/18 21:00 08/31/18 22:03 Temperature 98.3 F Pulse Rate 83 98 H 99 H Respiratory Rate 17 16 15 Blood Pressure 158/84 H 162/71 H 167/85 H Pulse Oximetry 100 99 98 08/31/18 23:23 09/01/18 00:00 09/01/18 04:00 Temperature 99.2 F 98.5 F Pulse Rate 100 H 109 H 101 H Respiratory Rate 16 16 Blood Pressure 157/68 H 150/65 H Pulse Oximetry 96 99 Intake & Output 08/31/18 09/01/18 09/01/18 18:59 06:59 18:59 Intake Total 100 / 100 Balance 100 / 100 Weight 59.1 kg Intake: IV 100 / 100 NS Inj 500 ML @ 50 mls/hr IV. 100 / 100 SIG .Q10H [facility] Rx#:[id number] Other: Date of Last Bowel Movement 08/31/18 Weight On Admission 58.06 kg Narrative: GENERAL: This is a well-nourished, well-developed patient, in no apparent distress. CARDIOVASCULAR: Regular rate and rhythm without murmurs, gallops, or rubs. RESPIRATORY: Clear to auscultation. Breath sounds equal bilaterally. No wheezes , rales, or rhonchi. GASTROINTESTINAL: Abdomen soft, non-tender, nondistended. Normal active bowel sounds MUSCULOSKELETAL: Extremities without clubbing, cyanosis, Left Hip dressed. NEURO: Alert & Oriented x4 to person, place, time, situation. Moves all ext x4 - Urinary Catheter Management Indwelling Urethral Catheter Cath placed during this visit: yes Reason for continuing: Hourly intake/output Insertion date: 09/01/18 Insertion time: 10:00 Results - Labs CBC & Chem 7: 09/01/18 06:21 09/01/18 06:21 Laboratory Results - last 24 hr 08/31/18 08/31/18 08/31/18 19:37 19:37 19:37 WBC 24.1 H RBC 2.20 L Hgb 7.5 L Hct 22.5 L MCV 102.3 H MCH 33.9 MCHC 33.1 RDW 15.8 Plt Count 60 L MPV 8.2 Prelim Diff (Auto) Slide review pending WBC Differential Manual diff final Seg Neuts % (Manual) 6 L Lymphocytes % (Manual) 91 H Monocytes % (Manual) 2 Eosinophils % (Manual) 1 Abs Neuts (Manual) 1.4 L Nucleated RBCs/100 WBC 1 H Differential Comment . Platelet Estimate Low L Platelet Morphology Normal PT 10.2 INR 1.0 APTT 25.6 Sodium 139 Potassium 4.0 Chloride 108 H Carbon Dioxide 23.8 Anion Gap 7 BUN 28 H Creatinine 1.60 H Estimated GFR 31 L POC Glucose Random Glucose 298 H Calcium 7.6 L Total Bilirubin 0.5 AST 20 ALT 24 Alkaline Phosphatase 67 Total Protein 6.6 Albumin 3.2 L Blood Type Antibody Screen Antibody Identification MTS Gel Crossmatch 08/31/18 08/31/18 08/31/18 19:37 21:08 21:09 WBC RBC Hgb Hct MCV MCH MCHC RDW Plt Count MPV Prelim Diff (Auto) WBC Differential Seg Neuts % (Manual) Lymphocytes % (Manual) Monocytes % (Manual) Eosinophils % (Manual) Abs Neuts (Manual) Nucleated RBCs/100 WBC Differential Comment Platelet Estimate Platelet Morphology PT INR APTT Sodium Potassium Chloride Carbon Dioxide Anion Gap BUN Creatinine Estimated GFR POC Glucose 299 H Random Glucose Calcium Total Bilirubin AST ALT Alkaline Phosphatase Total Protein Albumin Blood Type B Negative Antibody Screen Negative Antibody Identification MTS Gel Crossmatch See Detail 08/31/18 08/31/18 09/01/18 21:09 22:14 03:13 WBC RBC Hgb Hct MCV MCH MCHC RDW Plt Count MPV Prelim Diff (Auto) WBC Differential Seg Neuts % (Manual) Lymphocytes % (Manual) Monocytes % (Manual) Eosinophils % (Manual) Abs Neuts (Manual) Nucleated RBCs/100 WBC Differential Comment Platelet Estimate Platelet Morphology PT INR APTT Sodium Potassium Chloride Carbon Dioxide Anion Gap BUN Creatinine Estimated GFR POC Glucose 323 H 271 H Random Glucose Calcium Total Bilirubin AST ALT Alkaline Phosphatase Total Protein Albumin Blood Type Antibody Screen Antibody Identification No Alloantibodies Identified MTS Gel Crossmatch 09/01/18 09/01/18 09/01/18 06:21 06:21 07:58 WBC 29.2 H RBC 2.13 L Hgb 7.3 L Hct 21.5 L MCV 101.0 H MCH 34.0 MCHC 33.7 RDW 15.9 Plt Count 52 L MPV 7.8 Prelim Diff (Auto) Manual diff required WBC Differential Seg Neuts % (Manual) Lymphocytes % (Manual) Monocytes % (Manual) Eosinophils % (Manual) Abs Neuts (Manual) Nucleated RBCs/100 WBC Differential Comment . Platelet Estimate Platelet Morphology PT INR APTT Sodium 141 Potassium 4.1 Chloride 110 H Carbon Dioxide 24.1 Anion Gap 7 BUN 24 H Creatinine 1.49 H Estimated GFR 33 L POC Glucose 169 H Random Glucose 185 H D Calcium 7.5 L Total Bilirubin 0.6 AST 18 ALT 24 Alkaline Phosphatase 58 Total Protein 6.2 L Albumin 3.1 L Blood Type Antibody Screen Antibody Identification MTS Gel Crossmatch - Imaging Chest X-Ray 08/31/18 19:26 CONCLUSION: No evidence of acute cardiopulmonary disease. Hip X-Ray 08/31/18 19:26 CONCLUSION: Acute, minimally displaced left intertrochanteric fracture. - Procedures - Preoperative Diagnosis (1) Closed intertrochanteric fracture Date of procedure: 09/01/18 Procedure: Left hip reduction and intramedullary fixation Anesthesia: GETA Surgeon: Bg Fulton MD Prune Washer: DAWIT Ponce PA-C Assessment and Plan - Plan This is a pleasant 88 y/o Female with history of Breast Cancer, Chronic Lymphatic Leukemia, Dementia Dm II, Ms. diabetic neuropathy and nephropathy, hypothyroidism, and stage IV chronic kidney disease who presented to the emergency room following a mechanical fall at home with subsequent left hip pain. She was found to have a minimally displaced left trochanter fracture and was admitted to the hospitalist service for medical management with orthopedic consult for surgical repair. Left intertrochanteric fracture, minimally displaced -Stable in her bedroom will go for Left hip reduction and Intramedullary fixation by Doctor Bg Fulton continue Pain medicine, receiving two units of PRBCs, Calcium and vitamin D supplementation, PT consult, SCDs and SUNIL Mireles post Surgery. Follow H and H. Type 2 Diabetes Mellitus -Continue home Levemir but reduce dosage to 8 units at bedtime during acute hospitalization - Accu-Cheks before meals and at bedtime with low-dose NovoLog sliding scale coverage - Hypoglycemia protocol - Monitor trends and blood glucose readings and adjust treatments as indicated Chronic lymphocytic leukemia currently on chemotherapy -C 24.1, hemoglobin 7.5, hematocrit 22.5, platelet count 60,000 -Sees Dr. Payne as an outpatient -Consult oncology -appreciate assistance Chronic kidney disease -BUN 28, creatinine 1.60, EGFR 31 -Gentle IV fluid hydration with normal saline at 50 cc/h -Repeat labs in a.m. and follow results -Avoid nephrotoxins Left breast cancer -Follow-up with Dr. Briceno for lumpectomy as an outpatient Diabetic neuropathy -Continue home gabapentin DVT prophylaxis -SCDs Oncology and Orthopedic surgery following. Code Status: Full Code. Discussed Condition With: Patient, Nurse Miss Betacnourt and Daughter and Granddaughter in the room. Discharge Planning: Once cleared by specialists.
[2018-09-01] MEDS: Gabapentin 100 MG Capsule PO SCH ×2 (08:40→20:33)
[2018-09-01] MEDS: Insulin NovoLOG Aspart Correctional Sugar Inj SQ SCH ×4 (08:40→22:01)
[2018-09-01] MEDS: Sodium Chloride 0.9% 2 ML Flush BID IV.FLUSH SCH ×2 (08:40→20:33)
[2018-09-01] MEDS: VENCLEXTA 100 MG PO SCH (08:40)
[2018-09-01 09:01] LABS: Monocytes 3 % (0-8); Platelet Morphology Normal (Normal)
[2018-09-01 09:02] LABS: Lymphocytes 94 % (9-44)
[2018-09-01] MEDS ORDERED: ceFAZolin 2 GM Premix Inj 0 GM/0 ML PIGGYBACK IV.SIG ONE (10:43)
[2018-09-01] MEDS ORDERED: Bupivacaine/Epinephrine Inj 0.25% 50 ML Vial ONE (10:47)
[2018-09-01] MEDS ORDERED: ceFAZolin 1 GM Premix Inj 1 GM/50 ML FROZ.PIGGY IV.SIG ONE (10:58)
[2018-09-01 12:02] LABS: Bacteria,Urine Rare /hpf; Bilirubin,Urine Negative (Negative); Clarity,Urine Clear (Clear); Color,Urine Yellow (Yellw/Straw); Glucose,Urine (UA) 150 mg/dL (Negative); Leukocyte Esterase,Urine Negative (Negative); Mucus,Urine Few /lpf (Occasional); Nitrite,Urine Negative (Negative); Specific Gravity,Urine 1.014 (1.002-1.035); Squamous Epithelial Cell,Urine 1 /hpf (0-5)
[2018-09-01] MEDS ORDERED: Post-op Orders (for Pharmacy) OTHER STA (12:13)
--- NOTE | 2018-09-01 12:18 | P.OP ---
- Preoperative Diagnosis (1) Closed intertrochanteric fracture Date of procedure: 09/01/18 Procedure: Left hip reduction and intramedullary fixation Anesthesia: GETA Surgeon: Bg Fulton MD Porcelain Enameler: DAWIT Ponce PA-C The surgical procedure was assisted by my physician railways assistant. My P.A. presence was necessary throughout this case for the manipulation and positioning of the surgical extremity. My P.A. was assisting me throughout the duration of this procedure. The skill set of a physician railways assistant was medically necessary to complete this procedure. During the surgical case the water pollution control technician was working at the back table and the physician railways assistant was directly assisting me. Operation and Findings: Implants used: Pool 11.5 mm by 180 mm 130 degrees short troch nail Plan of activity: 50% weightbearing left leg Patient was seen and evaluated preoperatively. The patient has significant hip pain from left intertrochanteric hip fracture. The risk and benefits of surgery were discussed in depth with the patient to include bleeding infection nonunion malunion and need for hip replacement painful hardware as well as medical competitions including but not stroke heart attack and . Informed consent was obtained. Operative site was marked. Patient was brought to the operating room and placed on fracture table. IV sedation was administered by anesthesiologist. Timeout procedure was performed. Hip and leg were prepped with alcohol followed by DuraPrep and draped in the usual sterile fashion. IV antibiotics were given prior to incision. Procedure began with reduction of fracture. Traction was applied. The leg was manipulated to achieve reduction. Excellent reduction was achieved. Fluoroscopy was used to confirm reduction. A three inch incision was made proximal to the trochanter. Subcutaneous tissue was dissected bluntly. Guidepin was placed at the tip of the trochanter and advanced into the femoral canal. Fluoroscopy confirmed appropriate guidepin placement. A opening reamer was placed over the guidepin. The nail was attached to the insertion handle. Nail was now placed through the tip of the trochanter into the femoral canal. Fluoroscopy confirmed appropriate nail placement. A second incision was made over the lateral thigh. Cannulas were placed through the insertion handle down to the femur. Guidepin was now placed through the femoral nail into the center of the femoral head. Fluoroscopy confirmed appropriate guidepin placement. Screw length was measured. Cannulated drill was placed over the guidepin. Appropriate length lag screw was now placed. Traction was released and compression was applied. The set screw was now tightened in dynamic mode. Using the insertion handle as a guide a distal interlocking screw was drilled and placed. Final fluoroscopy revealed well aligned fracture with well-placed hardware. Incision was closed with 3-0 Vicryl and avis. Sterile dressings were applied. Patient was awakened and transferred to recovery room.
[2018-09-01] MEDS ORDERED: fentaNYL Citrate Inj 100 MCG/2 ML Ampul ONE (12:43)
[2018-09-01] MEDS ORDERED: *morphine SULFATE 4 MG/ML PERIprocedure ONLY ONE ×2 (13:07→13:21)
[2018-09-01] MEDS ORDERED: *Ondansetron Inj 4 MG/2 ML Vial PERIprocedural Use ONLY ONE (13:13)
--- NOTE | 2018-09-01 14:29 | XR ---
EXAM DATE: 09/01/2018 2:26 PM EST AGE/SEX: 88 years / Female INDICATIONS: Left hip troch nail. CLINICAL DATA: This is the patient's initial encounter. Patient reports that signs and symptoms have been present for 1 day and indicates a pain score of Nonresponsive. MEDICAL/SURGICAL HISTORY: Non-responsive. Non-responsive. COMPARISON: [facility], CT ABDOMEN AND PELVIS W/ CONTRAST, 04/06/2016. . FINDINGS: Postsurgical changes following open reduction and internal fixation of a left hip intertrochanteric f racture with a trochanteric nail are noted. There is satisfactory apposition of the fracture fragment s. Fixation device appears to be appropriately positioned. CONCLUSION: Satisfactory postoperative appearance of the left hip status post ORIF of an intertrochanteric fractu re. Electronically signed by: Unruly Paniagua MD 09/01/2018 2:28 PM EST
[2018-09-01] MEDS: Calcium/Vitamin D 250/125 MG Tablet PO SCH ×2 (17:36→17:37)
--- NOTE | 2018-09-01 18:08 | MB ---
cc: Chiquis Whatley MD, Jeffrey D MD DATE: 09/01/2018 REFERRING PHYSICIAN: Alan Ordonez MD CHIEF COMPLAINT: Dr. Ordonez requests a consultation for Ms. Scott regarding CLL and cytopenia/neutropenia. HISTORY OF PRESENT ILLNESS: Ms. Scott is an 88-year-old woman, well known patient to Dr. Ernie Payne. She has a history of chronic lymphocytic leukemia dating back to 2009 with a P17 mutation identified in 2012. She was on ibrutinib and doing quite well until a change in the medication dose. The patient developed a SIGNIFICANT RASH AND ALLERGIC REACTION TO THE IBRUTINIB. She was switched to venetoclax. Her course was complicated by worsening renal insufficiency and leukopenia/neutropenia on the venetoclax at the standard dose of 200 mg. She was decreased to 100 mg recently. There was some recovery of her neutrophil count at the lower dose. She was last seen by Dr. Payne on 08/20/2018. She was noted to be anemic and Dr. Payne had intended for her to receive a blood transfusion. Unfortunately, Ms. Scott fell. She landed on her left side and developed a left hip fracture. On 09/01/2018, she underwent a left hip reduction and intramedullary fixation by Dr. Bg Beasley. She tolerated the procedure well. After her surgery today, she was actually up and attempting to ambulate with physical therapy support. Hematology/oncology is consulted for the CLL. On admission, her white count was 24,000 with an ANC of 1400, hemoglobin of 7.5, platelet count of 60,000. She was transfused 2 units of packed red cells. Followup CBC prior to the transfusion shows a persistently elevated white blood cell count of 29,000, platelet count of 52 and hemoglobin of 7.3. ANC was 900. She has been afebrile. Her venetoclax has been placed on hold during this admission. PAST MEDICAL HISTORY: B12 deficiency, dementia, chronic lymphocytic leukemia, diabetes, retinopathy, seizure disorder, venous thrombosis of the distal cephalic basilic vein. PAST SURGICAL HISTORY: Appendectomy, cholecystectomy, hip fracture in 2016, left hip repair, hernia repair, colonoscopy, hysterectomy. ALLERGIES: IMBRUVICA AND ALLOPURINOL. FAMILY HISTORY: Both parents are . No significant family history of cancer. SOCIAL HISTORY: She is , retired. She quit smoking 17 years ago. She has a 71-nvng-eros smoking history. She denies any alcohol or illicit drug use. MEDICATIONS: Reviewed and include: 1. Gabapentin. 2. Insulin. 3. Lactulose. 4. Morphine. 5. Vitamin D3. PHYSICAL EXAMINATION: VITAL SIGNS: Temperature 97.9, heart rate 90, respiratory rate 15, blood pressure 153/65, saturation 94%. GENERAL: Ms. Scott is a well-developed, elderly woman who is sleepy but arousable. She is quite tired from the surgery today and physical therapy activity. HEENT: Her pupils are round, reactive to light and accommodation. Oropharynx is clear. NECK: Supple. LUNGS: Clear anteriorly. CARDIOVASCULAR: Reveals a normal rate and rhythm. ABDOMEN: Benign. EXTREMITIES: Lower extremities with a left hip scar. Good pulses. Pneumatic compression stockings are in place. She moves all 4 extremities. LYMPHATIC: Bilateral axillary adenopathy noted. BREASTS: The right breast is negative. The left breast with a hard 3 cm nodule in the upper outer quadrant. LABORATORY DATA: As described above. IMAGING DATA: Mammogram and ultrasound confirm a left breast mass, multifocal disease of the left breast concerning for malignancy. Left breast mammogram and ultrasound were from 08/27/2018. ASSESSMENT AND PLAN: Ms. Scott and is an 88-year-old woman, well known patient to Dr. Ernie Payne, with history of dementia, diabetes, chronic lymphocytic leukemia with a P17 mutation. She is currently on venetoclax with good response. She has complications of anemia, thrombocytopenia and neutropenia with the therapy. She also has chronic renal insufficiency which was also affected by the venetoclax. I concur with holding her venetoclax at present. I anticipate the neutrophils would improve. We will monitor closely for fevers. I discussed with the patient that venetoclax is different from her typical chemotherapy agents. She plans to discuss this further with Dr. Payne, who returns tomorrow. She has a known left breast mass that was pending excisional biopsy by Dr. Briceno. This is monitored at present. She was transfused as planned for support. Repeat CBC with followup tomorrow. We discussed the option of Neupogen for the neutropenia. Since her neutrophil count increased with the holding of the venetoclax, we will just follow at present. She is afebrile. Deep venous thrombosis prophylaxis with Xarelto as planned. We will monitor closely for bleeding. Their questions were answered to their satisfaction. We will continue to hold the venetoclax until Dr. Payne' return and monitor the left breast at present. Anticipate working up as an outpatient. MD SANDHYA Alvarado/gavin , 05:23 PM , 05:39 PM
[2018-09-01] MEDS: ceFAZolin 1 GM Premix Inj 1 GM/50 ML FROZ.PIGGY IV.SIG SCH (20:32)
--- NOTE | 2018-09-01 21:15 | ECG ---
Date Performed: 08/31/2018 Time Performed: 19:49:09 PTAGE: 88 years EKG: Sinus rhythm NORMAL ECG PREVIOUS TRACING : 12/28/2015 22.34 Since the previous tracing, no significant change noted DOCTOR: Yane Donald Interpretating Date/Time 09/01/2018 21:14:19
[2018-09-01] MEDS: Insulin Detemir Inj 1,000 UNIT/10 ML Vial SQ SCH (22:02)
[2018-09-02] MEDS: ceFAZolin 1 GM Premix Inj 1 GM/50 ML FROZ.PIGGY IV.SIG SCH ×2 (04:15→11:36)
[2018-09-02] MEDS: Sodium Chloride 0.9% 2 ML Flush BID IV.FLUSH SCH ×2 (08:23→21:26)
[2018-09-02] MEDS: VENCLEXTA 100 MG PO SCH (08:23)
[2018-09-02] MEDS: Calcium/Vitamin D 250/125 MG Tablet PO SCH ×3 (08:26→18:32)
[2018-09-02] MEDS: Insulin NovoLOG Aspart Correctional Sugar Inj SQ SCH ×4 (08:27→21:25)
[2018-09-02] MEDS: Gabapentin 100 MG Capsule PO SCH ×2 (08:27→21:25)
--- NOTE | 2018-09-02 09:06 | P.PNOP ---
Subjective Interval history: Resting comfortably. Moderate postanesthesia confusion. Physical Exam Vital signs: Vital Signs 09/01/18 12:33 09/01/18 12:45 09/01/18 12:50 Temperature 98.2 F 98.2 F Pulse Rate 101 H 103 H 103 H Respiratory Rate 19 20 19 Blood Pressure 187/77 H 150/58 H 150/58 H Pulse Oximetry 100 96 92 L 09/01/18 13:00 09/01/18 13:15 09/01/18 13:30 Temperature Pulse Rate 100 H 93 H 91 H Respiratory Rate 19 20 18 Blood Pressure 173/71 H 154/68 H 156/67 H Pulse Oximetry 99 99 99 09/01/18 13:45 09/01/18 13:53 09/01/18 20:00 Temperature 97.9 F Pulse Rate 91 H 90 104 H Respiratory Rate 19 15 Blood Pressure 149/69 H 153/65 H Pulse Oximetry 99 97 09/01/18 20:30 09/01/18 23:50 09/02/18 00:00 Temperature 97.8 F 99.0 F Pulse Rate 111 H 107 H 104 H Respiratory Rate 16 16 Blood Pressure 137/61 135/61 Pulse Oximetry 97 97 09/02/18 04:00 09/02/18 04:25 09/02/18 07:48 Temperature 98.7 F Pulse Rate 94 H 99 H Respiratory Rate 17 14 Blood Pressure 131/60 Pulse Oximetry 100 09/02/18 08:00 Temperature 98.8 F Pulse Rate 96 H Respiratory Rate 18 Blood Pressure 126/58 L Pulse Oximetry 99 Intake & Output 09/01/18 09/02/18 09/02/18 18:59 06:59 18:59 Intake Total 100 / 100 660 / 660 Output Total 1050 / 1050 600 / 600 Balance -950 / -950 60 / 60 Weight 58.2 kg Intake: IV 100 / 100 Ancef 1 GM Premix Inj 1 gm In 100 / 100 50 ml @ 100 mls/hr IV.SIG Q8H [facility] Rx#:[id number] Oral 560 / 560 Anesthesia Amount 100 / 100 Intake (Blood Product) Amt 0 / 0 Rbc As-3 Leukoreduced Unit 0 / 0 [id number] Output: Urine 900 / 900 Estimated Blood Loss 150 / 150 Urine Amount (Catheter) 600 / 600 Indwelling Urethral Catheter 600 / 600 Other: Date of Last Bowel Movement 11/04/18 Narrative: Left lower extremity: Clean dry dressings intact with mild swelling. No erythema or warmth. Mild pain with range of motion of the hip. No pain with knee or ankle range of motion. Distally intact sensation with good capillary refill - Urinary Catheter Management Indwelling Urethral Catheter Cath placed during this visit: yes Reason for continuing: Hourly intake/output Insertion date: 09/01/18 Insertion time: 10:00 Results - Labs CBC & Chem 7: 09/01/18 06:21 09/01/18 06:21 Laboratory Results - last 24 hr 08/31/18 09/01/18 09/01/18 21:08 10:05 11:28 POC Glucose Urine Color Yellow Urine Clarity Clear Urine pH 5.0 Ur Specific [place] 1.014 Urine Protein 30 H Urine Glucose (UA) 150 H Urine Ketones Negative Urine Occult Blood Small H Urine Nitrate Negative Urine Bilirubin Negative Urine Urobilinogen Less than 2 Ur Leukocyte Esterase Negative Urine RBC Less than 1 Urine WBC Less than 1 Ur Squamous Epith Cells 1 Urine Bacteria Rare H Urine Mucus Few H Micro UA Comment Culture not ind Ur Microscopic Review Not Reportable Urine Culture Comments Culture not ind MTS Gel Crossmatch See Detail Bld Prod Order Comment 09/01/18 09/01/18 09/01/18 12:41 16:28 21:57 POC Glucose 132 H 212 H 262 H Urine Color Urine Clarity Urine pH Ur Specific [place] Urine Protein Urine Glucose (UA) Urine Ketones Urine Occult Blood Urine Nitrate Urine Bilirubin Urine Urobilinogen Ur Leukocyte Esterase Urine RBC Urine WBC Ur Squamous Epith Cells Urine Bacteria Urine Mucus Micro UA Comment Ur Microscopic Review Urine Culture Comments MTS Gel Crossmatch Bld Prod Order Comment 09/02/18 09/02/18 04:54 07:31 POC Glucose 207 H 219 H Urine Color Urine Clarity Urine pH Ur Specific [place] Urine Protein Urine Glucose (UA) Urine Ketones Urine Occult Blood Urine Nitrate Urine Bilirubin Urine Urobilinogen Ur Leukocyte Esterase Urine RBC Urine WBC Ur Squamous Epith Cells Urine Bacteria Urine Mucus Micro UA Comment Ur Microscopic Review Urine Culture Comments MTS Gel Crossmatch Bld Prod Order Comment - Imaging Impressions Hip X-Ray 09/01/18 00:00 CONCLUSION: Satisfactory postoperative appearance of the left hip status post ORIF of an intertrochanteric fracture. - Procedures - Preoperative Diagnosis (1) Closed intertrochanteric fracture Date of procedure: 09/01/18 Procedure: Left hip reduction and intramedullary fixation Anesthesia: GETA Surgeon: Bg Fulton MD Customs Inspector: DAWIT Ponce PA-C Assessment and Plan - Assessment and Plan Left intertrochanteric femur fracture status post IM nail POD 1 Physical therapy 50% weightbearing left lower extremity Begin daily dressing changes POD 2 with Xeroform and Primapore(if significant drainage 4 x 4's ABD and paper tape) Calcium and vitamin D supplementation Physical therapy consult Case management for rehab placement Follow-up with Dr. Fulton in 2 weeks SCDs, Catrachita Hollingsworth postoperatively
[2018-09-02 10:58] LABS: Mean Corpuscular HGB Conc 33.5 % (32.0-36.0); Mean Corpuscular Hemoglobin 33.2 pg (27.0-34.0); Mean Platelet Volume 7.6 fL (7.0-11.0); Platelet Count 54 th/mm3 (150-450); Red Blood Count 1.85 mil/mm3 (4.00-5.30); Red Cell Distribution Width 15.3 % (11.6-17.2)
[2018-09-02 11:12] LABS: Hematocrit 18.3 % (35.0-46.0); Hemoglobin 6.2 gm/dL (11.6-15.3)
[2018-09-02] MEDS: Rivaroxaban 10 MG Tablet PO SCH (11:48)
--- NOTE | 2018-09-02 11:53 | P.PN ---
Subjective Interval history: This is a pleasant 88 y/o Female with history of Breast Cancer, Chronic Lymphatic Leukemia, Dementia Dm II, Ms. diabetic neuropathy and nephropathy, hypothyroidism, and stage IV chronic kidney disease who presented to the emergency room following a mechanical fall at home with subsequent left hip pain. She was found to have a minimally displaced left trochanter fracture and was admitted to the hospitalist service for medical management with orthopedic consult for surgical repair. 09/01: Seen in her bedroom, status post Left hip reduction and Intramedullary fixation, no nausea, vomit or diarrhea, continue present care. has Alzheimer her Daughter and Granddaughter in the room. 09/02: Stable in her bedroom but having anemia with hemoglobin 6.2 discussed with Blood bank they have two more units for the patient started blood transfusion at this time. No nausea , vomit or diarrhea. Physical Exam Vital signs: Vital Signs 09/01/18 12:33 09/01/18 12:45 09/01/18 12:50 Temperature 98.2 F 98.2 F Pulse Rate 101 H 103 H 103 H Respiratory Rate 19 20 19 Blood Pressure 187/77 H 150/58 H 150/58 H Pulse Oximetry 100 96 92 L 09/01/18 13:00 09/01/18 13:15 09/01/18 13:30 Temperature Pulse Rate 100 H 93 H 91 H Respiratory Rate 19 20 18 Blood Pressure 173/71 H 154/68 H 156/67 H Pulse Oximetry 99 99 99 09/01/18 13:45 09/01/18 13:53 09/01/18 20:00 Temperature 97.9 F Pulse Rate 91 H 90 104 H Respiratory Rate 19 15 Blood Pressure 149/69 H 153/65 H Pulse Oximetry 99 97 09/01/18 20:30 09/01/18 23:50 09/02/18 00:00 Temperature 97.8 F 99.0 F Pulse Rate 111 H 107 H 104 H Respiratory Rate 16 16 Blood Pressure 137/61 135/61 Pulse Oximetry 97 97 09/02/18 04:00 09/02/18 04:25 09/02/18 07:48 Temperature 98.7 F Pulse Rate 94 H 99 H Respiratory Rate 17 14 Blood Pressure 131/60 Pulse Oximetry 100 09/02/18 08:00 Temperature 98.8 F Pulse Rate 96 H Respiratory Rate 18 Blood Pressure 126/58 L Pulse Oximetry 99 Intake & Output 09/01/18 09/02/18 09/02/18 18:59 06:59 18:59 Intake Total 100 / 100 660 / 660 Output Total 1050 / 1050 600 / 600 Balance -950 / -950 60 / 60 Weight 58.2 kg Intake: IV 100 / 100 Ancef 1 GM Premix Inj 1 gm In 100 / 100 50 ml @ 100 mls/hr IV.SIG Q8H [facility] Rx#:[id number] Oral 560 / 560 Anesthesia Amount 100 / 100 Intake (Blood Product) Amt 0 / 0 Rbc As-3 Leukoreduced Unit 0 / 0 [id number] Output: Urine 900 / 900 Estimated Blood Loss 150 / 150 Urine Amount (Catheter) 600 / 600 Indwelling Urethral Catheter 600 / 600 Other: Date of Last Bowel Movement 08/31/18 08/31/18 Narrative: GENERAL: This is a well-nourished, well-developed patient, in no apparent distress. CARDIOVASCULAR: Regular rate and rhythm without murmurs, gallops, or rubs. RESPIRATORY: Clear to auscultation. Breath sounds equal bilaterally. No wheezes , rales, or rhonchi. GASTROINTESTINAL: Abdomen soft, non-tender, nondistended. Normal active bowel sounds MUSCULOSKELETAL: Extremities without clubbing, cyanosis, Left Hip dressed. NEURO: Alert & Oriented x4 to person, place, time, situation. Moves all ext x4 - Urinary Catheter Management Indwelling Urethral Catheter Cath placed during this visit: yes Reason for continuing: Hourly intake/output Insertion date: 09/01/18 Insertion time: 10:00 Results - Labs CBC & Chem 7: 09/03/18 04:10 09/01/18 06:21 Laboratory Results - last 24 hr 08/31/18 09/01/18 09/01/18 21:08 10:05 12:41 WBC RBC Hgb Hct MCV MCH MCHC RDW Plt Count MPV Prelim Diff (Auto) Differential Comment POC Glucose 132 H Urine Color Yellow Urine Clarity Clear Urine pH 5.0 Ur Specific [place] 1.014 Urine Protein 30 H Urine Glucose (UA) 150 H Urine Ketones Negative Urine Occult Blood Small H Urine Nitrate Negative Urine Bilirubin Negative Urine Urobilinogen Less than 2 Ur Leukocyte Esterase Negative Urine RBC Less than 1 Urine WBC Less than 1 Ur Squamous Epith Cells 1 Urine Bacteria Rare H Urine Mucus Few H Micro UA Comment Culture not ind Ur Microscopic Review Not Reportable Urine Culture Comments Culture not ind MTS Gel Crossmatch See Detail 09/01/18 09/01/18 09/02/18 16:28 21:57 04:54 WBC RBC Hgb Hct MCV MCH MCHC RDW Plt Count MPV Prelim Diff (Auto) Differential Comment POC Glucose 212 H 262 H 207 H Urine Color Urine Clarity Urine pH Ur Specific [place] Urine Protein Urine Glucose (UA) Urine Ketones Urine Occult Blood Urine Nitrate Urine Bilirubin Urine Urobilinogen Ur Leukocyte Esterase Urine RBC Urine WBC Ur Squamous Epith Cells Urine Bacteria Urine Mucus Micro UA Comment Ur Microscopic Review Urine Culture Comments MTS Gel Crossmatch 09/02/18 09/02/18 07:31 10:00 WBC 47.0 H RBC 1.85 L Hgb 6.2 L* Hct 18.3 L* MCV 99.0 MCH 33.2 MCHC 33.5 RDW 15.3 Plt Count 54 L MPV 7.6 Prelim Diff (Auto) Manual diff required Differential Comment . POC Glucose 219 H Urine Color Urine Clarity Urine pH Ur Specific [place] Urine Protein Urine Glucose (UA) Urine Ketones Urine Occult Blood Urine Nitrate Urine Bilirubin Urine Urobilinogen Ur Leukocyte Esterase Urine RBC Urine WBC Ur Squamous Epith Cells Urine Bacteria Urine Mucus Micro UA Comment Ur Microscopic Review Urine Culture Comments MTS Gel Crossmatch - Imaging Impressions Hip X-Ray 09/01/18 00:00 CONCLUSION: Satisfactory postoperative appearance of the left hip status post ORIF of an intertrochanteric fracture. - Procedures - Preoperative Diagnosis (1) Closed intertrochanteric fracture Date of procedure: 09/01/18 Procedure: Left hip reduction and intramedullary fixation Anesthesia: GETA Surgeon: Bg Fulton MD Department Of Mathematics Chair: DAWIT Ponce PA-C Assessment and Plan - Plan This is a pleasant 88 y/o Female with history of Breast Cancer, Chronic Lymphatic Leukemia, Dementia Dm II, Ms. diabetic neuropathy and nephropathy, hypothyroidism, and stage IV chronic kidney disease who presented to the emergency room following a mechanical fall at home with subsequent left hip pain. She was found to have a minimally displaced left trochanter fracture and was admitted to the hospitalist service for medical management with orthopedic consult for surgical repair. Left intertrochanteric fracture, minimally displaced -Status post Left hip reduction and Intramedullary fixation by Doctor Bg Fulton continue Pain medicine, Calcium and vitamin D supplementation, PT following. Hemoglobin today 6.2 started blood transfusion of two units of PRBCs Type 2 Diabetes Mellitus -Continue home Levemir but reduce dosage to 8 units at bedtime during acute hospitalization - Accu-Cheks before meals and at bedtime with low-dose NovoLog sliding scale coverage - Hypoglycemia protocol - Monitor trends and blood glucose readings and adjust treatments as indicated Chronic lymphocytic leukemia currently on chemotherapy -C 24.1, hemoglobin 7.5, hematocrit 22.5, platelet count 60,000 -Sees Dr. Payne as an outpatient -television specialist doctor Elmer following. Chronic kidney disease -BUN 28, creatinine 1.60, EGFR 31 -Gentle IV fluid hydration with normal saline at 50 cc/h -Repeat labs in a.m. and follow results -Avoid nephrotoxins Left breast cancer -Follow-up with Dr. Briceno for lumpectomy as an outpatient Diabetic neuropathy -Continue home gabapentin DVT prophylaxis -SCDs Oncology and Orthopedic surgery following. Code Status: DNR Discussed Condition With: Patient and Nurse. Discharge Planning: Once cleared by specialists.
[2018-09-02 12:15] LABS: Lymphocytes 95 % (9-44)
[2018-09-02 12:17] LABS: Platelet Morphology Normal (Normal)
[2018-09-02] MEDS: Filgrastim Inj 300 MCG/ML Vial SQ SCH ×2 (14:06→14:26)
[2018-09-02] MEDS: Insulin Detemir Inj 1,000 UNIT/10 ML Vial SQ SCH (21:25)
[2018-09-03 05:56] LABS: Hematocrit 23.9 % (35.0-46.0); Hemoglobin 8.2 gm/dL (11.6-15.3); Mean Corpuscular HGB Conc 34.1 % (32.0-36.0); Mean Corpuscular Hemoglobin 33.2 pg (27.0-34.0); Mean Corpuscular Volume 97.3 fL (80.0-100.0); Mean Platelet Volume 7.6 fL (7.0-11.0); Platelet Count 40 th/mm3 (150-450); Red Blood Count 2.46 mil/mm3 (4.00-5.30); Red Cell Distribution Width 14.7 % (11.6-17.2); White Blood Count 29.8 th/mm3 (4.0-11.0)
--- NOTE | 2018-09-03 07:39 | P.PNOP ---
Subjective Interval history: POD 2 s/ IMN left hip slightly demented. doing well. denies pain Physical Exam Vital signs: Vital Signs 09/02/18 07:48 09/02/18 08:00 09/02/18 12:17 Temperature 98.8 F 99.3 F Pulse Rate 96 H 93 H Respiratory Rate 14 18 18 Blood Pressure 126/58 L 120/58 L Pulse Oximetry 99 99 09/02/18 12:40 09/02/18 15:35 09/02/18 15:55 Temperature 98.5 F 98.6 F 99.7 F H Pulse Rate 90 98 H 93 H Respiratory Rate 18 15 15 Blood Pressure 141/77 H 124/58 L 133/66 Pulse Oximetry 100 100 09/02/18 18:34 09/02/18 19:32 09/02/18 20:00 Temperature 99.2 F 99.6 F Pulse Rate 100 H 89 94 H Respiratory Rate 17 Blood Pressure 155/68 H 150/104 H Pulse Oximetry 96 09/02/18 21:05 09/02/18 23:38 09/03/18 00:00 Temperature 100.8 F H Pulse Rate 87 86 Respiratory Rate 17 Blood Pressure 148/76 H 147/58 H Pulse Oximetry 99 09/03/18 03:00 09/03/18 04:00 Temperature 98.2 F Pulse Rate 113 H 107 H Respiratory Rate 17 Blood Pressure 168/72 H Pulse Oximetry 96 Intake & Output 09/02/18 09/03/18 09/03/18 18:59 06:59 18:59 Intake Total 850 / 850 120 / 120 Output Total 650 / 650 Balance 850 / 850 -530 / -530 Weight 63 kg Intake: IV 50 / 50 Ancef 1 GM Premix Inj 1 gm In 50 / 50 50 ml @ 100 mls/hr IV.SIG Q8H [facility] Rx#:[id number] Oral 120 / 120 Intake (Blood Product) Amt 800 / 800 Rbc As-3 Leukoreduced Unit 400 / 400 [id number] Rbc As-3 Leukoreduced Unit 400 / 400 [id number] Output: Urine Amount (Catheter) 650 / 650 Indwelling Urethral Catheter 650 / 650 Other: Date of Last Bowel Movement 08/31/18 08/31/18 # Bowel Movements 0 Narrative: LLE: dressings clean and dry. intact. NVI - Urinary Catheter Management Indwelling Urethral Catheter Cath placed during this visit: yes Reason for continuing: Hourly intake/output Insertion date: 09/01/18 Insertion time: 10:00 Results - Labs CBC & Chem 7: 09/03/18 04:10 09/01/18 06:21 Laboratory Results - last 24 hr 08/31/18 09/02/18 09/02/18 21:08 10:00 11:48 WBC 47.0 H RBC 1.85 L Hgb 6.2 L* Hct 18.3 L* MCV 99.0 MCH 33.2 MCHC 33.5 RDW 15.3 Plt Count 54 L MPV 7.6 Prelim Diff (Auto) Manual diff required WBC Differential Manual diff final Seg Neuts % (Manual) 4 L Band Neuts % (Manual) 2 Lymphocytes % (Manual) 95 H Plasma Cell % (Manual) Abs Neuts (Manual) 2.8 Differential Comment . Platelet Estimate Low L Platelet Morphology Normal POC Glucose 176 H MTS Gel Crossmatch See Detail 09/02/18 09/02/18 09/03/18 17:12 21:17 03:40 WBC RBC Hgb Hct MCV MCH MCHC RDW Plt Count MPV Prelim Diff (Auto) WBC Differential Seg Neuts % (Manual) Band Neuts % (Manual) Lymphocytes % (Manual) Plasma Cell % (Manual) Abs Neuts (Manual) Differential Comment Platelet Estimate Platelet Morphology POC Glucose 177 H 217 H 241 H MTS Gel Crossmatch 09/03/18 04:10 WBC 29.8 H RBC 2.46 L Hgb 8.2 L D Hct 23.9 L MCV 97.3 MCH 33.2 MCHC 34.1 RDW 14.7 Plt Count 40 L MPV 7.6 Prelim Diff (Auto) Manual diff required WBC Differential Seg Neuts % (Manual) Band Neuts % (Manual) Lymphocytes % (Manual) Plasma Cell % (Manual) Abs Neuts (Manual) Differential Comment . Platelet Estimate Platelet Morphology POC Glucose MTS Gel Crossmatch - Procedures - Preoperative Diagnosis (1) Closed intertrochanteric fracture Date of procedure: 09/01/18 Procedure: Left hip reduction and intramedullary fixation Anesthesia: GETA Surgeon: Bg Fulton MD Column Precaster: DAWIT Ponce PA-C Assessment and Plan - Assessment and Plan 1) Left intertrochanteric femur fracture status post IM nail POD 2 Physical therapy 50% weightbearing left lower extremity Begin daily dressing changes POD 2 with Xeroform and Primapore(if significant drainage 4 x 4's ABD and paper tape) Calcium and vitamin D supplementation Physical therapy consult Case management for rehab placement Follow-up with Dr. Fulton in 2 weeks SCDs, Catrachita Hollingsworth postoperatively
[2018-09-03 07:44] LABS: Lymphocytes 92 % (9-44)
[2018-09-03 07:45] LABS: Platelet Morphology Normal (Normal)
[2018-09-03] MEDS: Calcium/Vitamin D 250/125 MG Tablet PO SCH ×3 (08:51→18:01)
[2018-09-03] MEDS: VENCLEXTA 100 MG PO SCH (08:52)
[2018-09-03] MEDS: Sodium Chloride 0.9% 2 ML Flush BID IV.FLUSH SCH ×3 (08:52→21:07)
[2018-09-03] MEDS: Gabapentin 100 MG Capsule PO SCH ×2 (08:52→21:02)
--- NOTE | 2018-09-03 09:05 | P.PNONC ---
Subjective Interval history: Saw the patient with her daughter present. The patient having confusion with narcotics. Her baseline is confusion as well. Objective Vital Signs/Intake & Output: Vital Signs 09/02/18 12:17 09/02/18 12:40 09/02/18 15:35 Temperature 99.3 F 98.5 F 98.6 F Pulse Rate 93 H 90 98 H Respiratory Rate 18 18 15 Blood Pressure 120/58 L 141/77 H 124/58 L Pulse Oximetry 99 100 100 09/02/18 15:55 09/02/18 18:34 09/02/18 19:32 Temperature 99.7 F H 99.2 F 99.6 F Pulse Rate 93 H 100 H 89 Respiratory Rate 15 17 Blood Pressure 133/66 155/68 H 150/104 H Pulse Oximetry 96 09/02/18 20:00 09/02/18 21:05 09/02/18 23:38 Temperature 100.8 F H Pulse Rate 94 H 87 Respiratory Rate 17 Blood Pressure 148/76 H 147/58 H Pulse Oximetry 99 09/03/18 00:00 09/03/18 03:00 09/03/18 04:00 Temperature 98.2 F Pulse Rate 86 113 H 107 H Respiratory Rate 17 Blood Pressure 168/72 H Pulse Oximetry 96 Intake & Output 09/02/18 09/03/18 09/03/18 18:59 06:59 18:59 Intake Total 850 / 850 120 / 120 Output Total 650 / 650 Balance 850 / 850 -530 / -530 Weight 63 kg Intake: IV 50 / 50 Ancef 1 GM Premix Inj 1 gm In 50 / 50 50 ml @ 100 mls/hr IV.SIG Q8H [facility] Rx#:[id number] Oral 120 / 120 Intake (Blood Product) Amt 800 / 800 Rbc As-3 Leukoreduced Unit 400 / 400 [id number] Rbc As-3 Leukoreduced Unit 400 / 400 [id number] Output: Urine Amount (Catheter) 650 / 650 Indwelling Urethral Catheter 650 / 650 Other: Date of Last Bowel Movement 08/31/18 08/31/18 # Bowel Movements 0 Result Diagrams: 09/03/18 04:10 09/01/18 06:21 Laboratory Results: Laboratory Results - last 24 hr 08/31/18 09/02/18 09/02/18 21:08 10:00 11:48 WBC 47.0 H RBC 1.85 L Hgb 6.2 L* Hct 18.3 L* MCV 99.0 MCH 33.2 MCHC 33.5 RDW 15.3 Plt Count 54 L MPV 7.6 Prelim Diff (Auto) Manual diff required WBC Differential Manual diff final Seg Neuts % (Manual) 4 L Band Neuts % (Manual) 2 Lymphocytes % (Manual) 95 H Plasma Cell % (Manual) Abs Neuts (Manual) 2.8 Differential Comment . Platelet Estimate Low L Platelet Morphology Normal POC Glucose 176 H MTS Gel Crossmatch See Detail 09/02/18 09/02/18 09/03/18 17:12 21:17 03:40 WBC RBC Hgb Hct MCV MCH MCHC RDW Plt Count MPV Prelim Diff (Auto) WBC Differential Seg Neuts % (Manual) Band Neuts % (Manual) Lymphocytes % (Manual) Plasma Cell % (Manual) Abs Neuts (Manual) Differential Comment Platelet Estimate Platelet Morphology POC Glucose 177 H 217 H 241 H MTS Gel Crossmatch 09/03/18 09/03/18 04:10 07:46 WBC 29.8 H RBC 2.46 L Hgb 8.2 L D Hct 23.9 L MCV 97.3 MCH 33.2 MCHC 34.1 RDW 14.7 Plt Count 40 L MPV 7.6 Prelim Diff (Auto) Manual diff required WBC Differential Manual diff final Seg Neuts % (Manual) 7 L Band Neuts % (Manual) 2 Lymphocytes % (Manual) 92 H Plasma Cell % (Manual) Abs Neuts (Manual) 2.7 Differential Comment . Platelet Estimate Low L Platelet Morphology Normal POC Glucose 206 H MTS Gel Crossmatch Medications: Active Medications Generic Name Dose Route Start Last Admin Trade Name Freq PRN Reason Stop Dose Admin Hydrocodone Bitart/Acetaminophen 1 tab 08/31/18 22:20 09/03/18 02:29 [place] 5/325 PO 1 tab Q4H PRN Administration PAIN SCALE 3 TO 5 Calcium/Vitamin D 1 tab 09/01/18 13:30 09/02/18 18:32 Oscal With D 250/125 Mg PO 1 tab TID JESSICA Administration Filgrastim 300 mcg 09/02/18 14:00 09/02/18 14:26 Neupogen Inj SQ 09/04/18 14:01 Not Given DAILY@1400 JESSICA Gabapentin 100 mg 09/01/18 09:00 09/02/18 21:25 Neurontin PO 100 mg BID JESSICA Administration Sodium Chloride 1,000 mls @ 50 mls/hr 08/31/18 21:45 09/02/18 21:26 Ns Inj IV.CONT 50 mls/hr .Q20H JESSICA Administration Insulin Aspart 0 unit 09/01/18 08:00 09/02/18 21:25 Novolog Insulin Correctional Sugar Inj SQ 3 unit ACHS JESSICA Administration Protocol Morphine Sulfate 2 mg 08/31/18 22:20 09/01/18 17:35 Morphine Inj IV.PUSH 2 mg Q3H PRN Administration BREAKTHROUGH PAIN Ondansetron HCl 4 mg 09/01/18 17:15 09/02/18 14:06 Zofran Inj IV.PUSH 4 mg Q6H PRN Administration NAUSEA OR VOMITING Pt Own Venclexta 100 0 each 09/01/18 09:00 09/02/18 08:23 Mg PO Not Given DAILY JESSICA Rivaroxaban 10 mg 09/02/18 11:30 09/02/18 11:48 Xarelto PO Not Given Q24H [facility] Sodium Chloride 2 ml 09/01/18 09:00 09/02/18 21:26 Ns Flush IV.FLUSH Not Given BID JESSICA Vitamin D 5,000 unit 09/02/18 09:00 09/02/18 08:26 Vitamin D3 PO 5,000 unit DAILY JESSICA Administration Objective Remarks: GENERAL: Frail, confused, tearful, profoundly weak. SKIN: Warm and dry. HEAD: Normocephalic. EYES: No scleral icterus. No injection or drainage. NECK: Supple, trachea midline. No JVD or lymphadenopathy. LYMPHATIC: No adenopathy. CARDIOVASCULAR: Regular rate and rhythm without murmurs. RESPIRATORY: Breath sounds equal bilaterally. No accessory muscle use. GASTROINTESTINAL: Abdomen soft, non-tender, nondistended. EXTREMITIES: No cyanosis, or edema. MUSCULOSKELETAL: Muscle wasting. NEUROLOGICAL: Mild confusion PSYCHIATRIC: Depressed and crying Has 3-4 cm left breast mass which is likely malignant Assessment/Plan - Plan The patient has chronic lymphocytic leukemia. For the present time will hold Ventoclax. If she is able to survive over the next several weeks will resume Ventoclax at 100 mg a day and monitor. She has an aggressive form of CLL. She has confusion. She is tolerating poorly narcotics. Will try simple Tylenol to see if this lessens the confusion. She has anemia and would recommend keeping her hemoglobin greater than 8. This may require transfusions. Her neutrophil count is adequate and will discontinue the Neupogen. Her overall health is extremely poor with recent fracture to the hip, poor prognosis CLL, progressive dementia, and probable left breast cancer. If she survives the next 4-6 weeks will arrange for needle biopsy of the left breast and if she is ER positive consider an aromatase inhibitor with the other possibility being surgical removal of the tumor. At the moment she is too frail to undergo further studies and immediate treatment would not be important if her prognosis is measured in months. The daughter indicates that the patient wants no cardiopulmonary resuscitation. If the platelets are below 40,000 would hold Xarelto in spite of the risks of DVT and pulmonary emboli.
[2018-09-03] MEDS: Insulin NovoLOG Aspart Correctional Sugar Inj SQ SCH ×5 (09:13→21:03)
[2018-09-03] MEDS ORDERED: Sodium Chlor 0.9% Inj 500 ML IV.SIG SCH (10:00)
[2018-09-03] MEDS: Rivaroxaban 10 MG Tablet PO SCH (12:23)
[2018-09-03] MEDS: Acetaminophen 500 MG Tablet PO PRN (12:27)
--- NOTE | 2018-09-03 15:17 | P.PN ---
Subjective Interval history: This is a pleasant 88 y/o Female with history of Breast Cancer, Chronic Lymphatic Leukemia, Dementia Dm II, Ms. diabetic neuropathy and nephropathy, hypothyroidism, and stage IV chronic kidney disease who presented to the emergency room following a mechanical fall at home with subsequent left hip pain. She was found to have a minimally displaced left trochanter fracture and was admitted to the hospitalist service for medical management with orthopedic consult for surgical repair. 09/01: Seen in her bedroom, status post Left hip reduction and Intramedullary fixation, no nausea, vomit or diarrhea, continue present care. has Alzheimer her Daughter and Granddaughter in the room. 09/02: Stable in her bedroom but having anemia with hemoglobin 6.2 discussed with Blood bank they have two more units for the patient started blood transfusion at this time. 09/03: Patient at this time with her Daughter in the room, seen by Orthopedic surgery and recommended for SNF placement, seen by registration specialist, she has chronic Lymphocytic Leukemia , on hold Ventoclax, she has aggressive form of her disease, her Daughter asking to decrease Narcotic management, received two units of PRBCs today her Hemoglobin 8.2, as per Oncology if survive 4 to 6 weeks will arrange for needle biopsy of the left breast. Physical Exam Vital signs: Vital Signs 09/02/18 15:35 09/02/18 15:55 09/02/18 18:34 Temperature 98.6 F 99.7 F H 99.2 F Pulse Rate 98 H 93 H 100 H Respiratory Rate 15 15 Blood Pressure 124/58 L 133/66 155/68 H Pulse Oximetry 100 09/02/18 19:32 09/02/18 20:00 09/02/18 21:05 Temperature 99.6 F Pulse Rate 89 94 H Respiratory Rate 17 Blood Pressure 150/104 H 148/76 H Pulse Oximetry 96 09/02/18 23:38 09/03/18 00:00 09/03/18 03:00 Temperature 100.8 F H 98.2 F Pulse Rate 87 86 113 H Respiratory Rate 17 17 Blood Pressure 147/58 H 168/72 H Pulse Oximetry 99 96 09/03/18 04:00 09/03/18 08:00 09/03/18 09:00 Temperature 98.5 F Pulse Rate 107 H 99 H 98 H Respiratory Rate 16 Blood Pressure 159/66 H Pulse Oximetry 95 09/03/18 12:00 Temperature 98.5 F Pulse Rate 102 H Respiratory Rate 16 Blood Pressure 140/63 Pulse Oximetry 99 Intake & Output 09/02/18 09/03/18 09/03/18 18:59 06:59 18:59 Intake Total 850 / 850 120 / 120 500 / 500 Output Total 650 / 650 Balance 850 / 850 -530 / -530 500 / 500 Weight 63 kg Intake: IV 50 / 50 500 / 500 NS Inj 500 ML @ 1000 mls/hr IV. 500 / 500 SIG BOLUS JESSICA Rx#:[id number] Ancef 1 GM Premix Inj 1 gm In 50 / 50 50 ml @ 100 mls/hr IV.SIG Q8H JESSICA Rx#:[id number] Oral 120 / 120 Intake (Blood Product) Amt 800 / 800 Rbc As-3 Leukoreduced Unit 400 / 400 [id number] Rbc As-3 Leukoreduced Unit 400 / 400 [id number] Output: Urine Amount (Catheter) 650 / 650 Indwelling Urethral Catheter 650 / 650 Other: Date of Last Bowel Movement 08/31/18 08/31/18 # Bowel Movements 0 Narrative: GENERAL: This is a well-nourished, well-developed patient, in no apparent distress. CARDIOVASCULAR: Regular rate and rhythm without murmurs, gallops, or rubs. RESPIRATORY: Clear to auscultation. Breath sounds equal bilaterally. No wheezes , rales, or rhonchi. GASTROINTESTINAL: Abdomen soft, non-tender, nondistended. Normal active bowel sounds MUSCULOSKELETAL: Extremities without clubbing, cyanosis, Left Hip dressed. NEURO: Alert & Oriented x4 to person, place, time, situation. Moves all ext x4 - Urinary Catheter Management Indwelling Urethral Catheter Cath placed during this visit: yes Reason for continuing: Hourly intake/output Insertion date: 09/01/18 Insertion time: 10:00 Results - Labs CBC & Chem 7: 09/03/18 04:10 09/01/18 06:21 Laboratory Results - last 24 hr 08/31/18 09/02/18 09/02/18 21:08 17:12 21:17 WBC RBC Hgb Hct MCV MCH MCHC RDW Plt Count MPV Prelim Diff (Auto) WBC Differential Seg Neuts % (Manual) Band Neuts % (Manual) Lymphocytes % (Manual) Plasma Cell % (Manual) Abs Neuts (Manual) Differential Comment Platelet Estimate Platelet Morphology POC Glucose 177 H 217 H MTS Gel Crossmatch See Detail 09/03/18 09/03/18 09/03/18 03:40 04:10 07:46 WBC 29.8 H RBC 2.46 L Hgb 8.2 L D Hct 23.9 L MCV 97.3 MCH 33.2 MCHC 34.1 RDW 14.7 Plt Count 40 L MPV 7.6 Prelim Diff (Auto) Manual diff required WBC Differential Manual diff final Seg Neuts % (Manual) 7 L Band Neuts % (Manual) 2 Lymphocytes % (Manual) 92 H Plasma Cell % (Manual) Not Reportable Abs Neuts (Manual) 2.7 Differential Comment . Platelet Estimate Low L Platelet Morphology Normal POC Glucose 241 H 206 H MTS Gel Crossmatch 09/03/18 12:02 WBC RBC Hgb Hct MCV MCH MCHC RDW Plt Count MPV Prelim Diff (Auto) WBC Differential Seg Neuts % (Manual) Band Neuts % (Manual) Lymphocytes % (Manual) Plasma Cell % (Manual) Abs Neuts (Manual) Differential Comment Platelet Estimate Platelet Morphology POC Glucose 187 H MTS Gel Crossmatch - Imaging Chest X-Ray 08/31/18 19:26 CONCLUSION: No evidence of acute cardiopulmonary disease. Hip X-Ray 09/01/18 00:00 CONCLUSION: Satisfactory postoperative appearance of the left hip status post ORIF of an intertrochanteric fracture. - Procedures - Preoperative Diagnosis (1) Closed intertrochanteric fracture Date of procedure: 09/01/18 Procedure: Left hip reduction and intramedullary fixation Anesthesia: GETA Surgeon: Bg Fulton MD French [employer] B[employer]: DAWIT Ponce PA-C Assessment and Plan - Plan This is a pleasant 88 y/o Female with history of Breast Cancer, Chronic Lymphatic Leukemia, Dementia Dm II, Ms. diabetic neuropathy and nephropathy, hypothyroidism, and stage IV chronic kidney disease who presented to the emergency room following a mechanical fall at home with subsequent left hip pain. She was found to have a minimally displaced left trochanter fracture and was admitted to the hospitalist service for medical management with orthopedic consult for surgical repair. Left intertrochanteric fracture, minimally displaced -Status post Left hip reduction and Intramedullary fixation by Doctor Bg Fulton continue Pain medicine, Calcium and vitamin D supplementation, PT following. Hemoglobin today 6.2 started blood transfusion of two units of PRBCs Type 2 Diabetes Mellitus -Continue home Levemir but reduce dosage to 8 units at bedtime during acute hospitalization - Accu-Cheks before meals and at bedtime with low-dose NovoLog sliding scale coverage - Hypoglycemia protocol - Monitor trends and blood glucose readings and adjust treatments as indicated Chronic lymphocytic leukemia currently on chemotherapy -09/03 as per Doctor Payne she has chronic Lymphocytic Leukemia, on hold Ventoclax, she has aggressive form of her disease, her Daughter asking to decrease Narcotic management, received two units of PRBCs today her Hemoglobin 8.2, as per Oncology if survive 4 to 6 weeks will arrange for needle biopsy of the left breast. Chronic kidney disease -BUN 28, creatinine 1.49, seen patient with dehydration and given IV fluids. Diabetic neuropathy -Continue home gabapentin DVT prophylaxis -SCDs Oncology and Orthopedic surgery following. Code Status: DNR Discussed Condition With: Patient and Her Daughter in the room. Discharge Planning: Once cleared by specialists.
[2018-09-03] MEDS: Insulin Detemir Inj 1,000 UNIT/10 ML Vial SQ SCH (21:02)
[2018-09-04] MEDS: Acetaminophen 500 MG Tablet PO PRN ×4 (00:10→16:38)
--- NOTE | 2018-09-04 06:19 | P.PNOP ---
Subjective Interval history: Resting comfortably. No new complaints. Physical Exam Vital signs: Vital Signs 09/03/18 08:00 09/03/18 09:00 09/03/18 12:00 Temperature 98.5 F 98.5 F Pulse Rate 99 H 98 H 102 H Respiratory Rate 16 16 Blood Pressure 159/66 H 140/63 Pulse Oximetry 95 99 09/03/18 16:00 09/03/18 19:56 09/03/18 22:33 Temperature 98.6 F 99.1 F Pulse Rate 95 H 110 H 112 H Respiratory Rate 16 17 Blood Pressure 141/64 H 145/66 H Pulse Oximetry 100 100 09/03/18 23:29 09/03/18 23:57 09/04/18 00:40 Temperature 97.4 F L Pulse Rate 104 H 102 H Respiratory Rate 17 17 Blood Pressure 161/68 H Pulse Oximetry 98 09/04/18 03:13 09/04/18 04:42 Temperature 97.8 F Pulse Rate 95 H 85 Respiratory Rate 18 Blood Pressure 155/65 H Pulse Oximetry 99 Intake & Output 09/03/18 09/03/18 09/04/18 06:59 18:59 06:59 Intake Total 120 / 120 1500 / 1500 1240 / 1240 Output Total 650 / 650 1700 / 1700 Balance -530 / -530 1500 / 1500 -460 / -460 Weight 63 kg 63 kg Intake: IV 1500 / 1500 NS Inj 1,000 ML @ 75 mls/hr IV. 1000 / 1000 CONT .[id number] JESSICA Rx#:[id number] NS Inj 500 ML @ 1000 mls/hr IV. 500 / 500 SIG BOLUS JESSICA Rx#:[id number] Oral 120 / 120 1240 / 1240 Output: Urine 950 / 950 Urine Amount (Catheter) 650 / 650 750 / 750 Indwelling Urethral Catheter 650 / 650 Straight 750 / 750 Other: Date of Last Bowel Movement 08/31/18 08/31/18 # Bowel Movements 0 0 Narrative: Left lower extremity: Clean dry dressings intact. Intact sensation distally with active dorsiflexion plantar flexion foot. Good capillary refills and distal pulses - Urinary Catheter Management Indwelling Urethral Catheter Cath placed during this visit: yes, but has since been removed by the nurse Reason for continuing: Not indwelling catheter Insertion date: 09/04/18 Insertion time: 03:35 Removal date: 09/03/18 Removal time: 03:40 Straight Cath placed during this visit: no Results - Labs CBC & Chem 7: 09/03/18 04:10 09/01/18 06:21 Laboratory Results - last 24 hr 09/03/18 09/03/18 09/03/18 04:10 07:46 12:02 WBC Differential Manual diff final Seg Neuts % (Manual) 7 L Band Neuts % (Manual) 2 Lymphocytes % (Manual) 92 H Plasma Cell % (Manual) Not Reportable Abs Neuts (Manual) 2.7 Platelet Estimate Low L Platelet Morphology Normal POC Glucose 206 H 187 H 09/03/18 09/03/18 17:22 19:47 WBC Differential Seg Neuts % (Manual) Band Neuts % (Manual) Lymphocytes % (Manual) Plasma Cell % (Manual) Abs Neuts (Manual) Platelet Estimate Platelet Morphology POC Glucose 160 H 219 H - Procedures - Preoperative Diagnosis (1) Closed intertrochanteric fracture Date of procedure: 09/01/18 Procedure: Left hip reduction and intramedullary fixation Anesthesia: GETA Surgeon: Bg Fulton MD Supervisor [employer]: DAWIT Ponce PA-C Assessment and Plan - Assessment and Plan 1) Left intertrochanteric femur fracture status post IM nail POD 3 Physical therapy 50% weightbearing left lower extremity Begin daily dressing changes POD 2 with Xeroform and Primapore(if significant drainage 4 x 4's ABD and paper tape) Calcium and vitamin D supplementation Physical therapy consult Case management for rehab placement -orthopedically cleared for discharge Follow-[facility] Dr[facility]ult[facility] Cat[place]achita Hollingsworth postoperatively
[2018-09-04 06:39] LABS: Mean Corpuscular HGB Conc 34.1 % (32.0-36.0); Mean Corpuscular Hemoglobin 33.1 pg (27.0-34.0); Platelet Count 37 th/mm3 (150-450); Red Blood Count 2.15 mil/mm3 (4.00-5.30); Red Cell Distribution Width 14.5 % (11.6-17.2); White Blood Count 31.9 th/mm3 (4.0-11.0)
[2018-09-04 06:56] LABS: Hematocrit 20.9 % (35.0-46.0); Hemoglobin 7.1 gm/dL (11.6-15.3)
[2018-09-04 07:30] LABS: Monocytes 1 % (0-8)
[2018-09-04 07:31] LABS: Lymphocytes 94 % (9-44); Platelet Morphology Normal (Normal)
[2018-09-04 07:32] LABS: Smudge Cells Present; Tear Drop Cells 1+
[2018-09-04] MEDS: Calcium/Vitamin D 250/125 MG Tablet PO SCH ×3 (08:23→17:54)
[2018-09-04] MEDS: Gabapentin 100 MG Capsule PO SCH ×2 (08:23→21:25)
--- NOTE | 2018-09-04 08:45 | P.PN ---
Subjective Interval history: This is a pleasant 88 y/o Female with history of Breast Cancer, Chronic Lymphatic Leukemia, Dementia Dm II, Ms. diabetic neuropathy and nephropathy, hypothyroidism, and stage IV chronic kidney disease who presented to the emergency room following a mechanical fall at home with subsequent left hip pain. She was found to have a minimally displaced left trochanter fracture and was admitted to the hospitalist service for medical management with orthopedic consult for surgical repair. 09/01: Seen in her bedroom, status post Left hip reduction and Intramedullary fixation, no nausea, vomit or diarrhea, continue present care. has Alzheimer her Daughter and Granddaughter in the room. 09/02: Stable in her bedroom but having anemia with hemoglobin 6.2 discussed with Blood bank they have two more units for the patient started blood transfusion at this time. 09/03: Patient at this time with her Daughter in the room, seen by Orthopedic surgery and recommended for SNF placement, seen by crime data specialist, she has chronic Lymphocytic Leukemia , on hold Ventoclax, she has aggressive form of her disease, her Daughter asking to decrease Narcotic management, received two units of PRBCs today her Hemoglobin 8.2, as per Oncology if survive 4 to 6 weeks will arrange for needle biopsy of the left breast. 09/04: hemoglobin 7.1 patient on IV fluids probable dilutional effect now, asked the nurse Miss Pradhan to notify junk removal specialist, who recommended for blood transfusion, also asked for multiple laboratory studies. as per Orthopedic surgery recommended for Physical Therapy 50% weightbearing left lower extremity, begin daily dressing changes POD 2, Calcium vitamin D supplementation, cleared for discharge by surgeon. No nausea, vomit or diarrhea working with Physical Therapy at this time. Physical Exam Vital signs: Vital Signs 09/03/18 09:00 09/03/18 12:00 09/03/18 16:00 Temperature 98.5 F 98.6 F Pulse Rate 98 H 102 H 95 H Respiratory Rate 16 16 Blood Pressure 140/63 141/64 H Pulse Oximetry 99 100 09/03/18 19:56 09/03/18 22:33 09/03/18 23:29 Temperature 99.1 F 97.4 F L Pulse Rate 110 H 112 H 104 H Respiratory Rate 17 17 Blood Pressure 145/66 H 161/68 H Pulse Oximetry 100 98 09/03/18 23:57 09/04/18 00:40 09/04/18 03:13 Temperature 97.8 F Pulse Rate 102 H 95 H Respiratory Rate 17 18 Blood Pressure 155/65 H Pulse Oximetry 99 09/04/18 04:42 Temperature Pulse Rate 85 Respiratory Rate Blood Pressure Pulse Oximetry Intake & Output 09/03/18 09/04/18 09/04/18 18:59 06:59 18:59 Intake Total 1500 / 1500 1240 / 1240 Output Total 1700 / 1700 Balance 1500 / 1500 -460 / -460 Weight 63 kg Intake: IV 1500 / 1500 NS Inj 1,000 ML @ 75 mls/hr IV. 1000 / 1000 CONT .[id number] JESSICA Rx#:[id number] NS Inj 500 ML @ 1000 mls/hr IV. 500 / 500 SIG BOLUS JESSICA Rx#:[id number] Oral 1240 / 1240 Output: Urine 950 / 950 Urine Amount (Catheter) 750 / 750 Straight 750 / 750 Other: Date of Last Bowel Movement 08/31/18 # Bowel Movements 0 Narrative: GENERAL: This is a well-nourished, well-developed patient, in no apparent distress. CARDIOVASCULAR: Regular rate and rhythm without murmurs, gallops, or rubs. RESPIRATORY: Clear to auscultation. Breath sounds equal bilaterally. No wheezes , rales, or rhonchi. GASTROINTESTINAL: Abdomen soft, non-tender, nondistended. Normal active bowel sounds MUSCULOSKELETAL: Extremities without clubbing, cyanosis, Left Hip dressed. NEURO: Alert & Oriented x4 to person, place, time, situation. Moves all ext x4 - Urinary Catheter Management Indwelling Urethral Catheter Cath placed during this visit: yes, but has since been removed by the nurse Reason for continuing: Not indwelling catheter Insertion date: 09/04/18 Insertion time: 03:35 Removal date: 09/03/18 Removal time: 03:40 Straight Cath placed during this visit: no Results - Labs CBC & Chem 7: 09/04/18 05:09 09/01/18 06:21 Laboratory Results - last 24 hr 09/03/18 09/03/18 09/03/18 04:10 12:02 17:22 WBC RBC Hgb Hct MCV MCH MCHC RDW Plt Count MPV Prelim Diff (Auto) WBC Differential Seg Neuts % (Manual) Lymphocytes % (Manual) Monocytes % (Manual) Plasma Cell % (Manual) Not Reportable Abs Neuts (Manual) Differential Comment Smudge Cells Platelet Estimate Platelet Morphology Tear Drop Cells POC Glucose 187 H 160 H 09/03/18 09/04/18 09/04/18 19:47 05:09 08:27 WBC 31.9 H RBC 2.15 L Hgb 7.1 L Hct 20.9 L* MCV 97.0 MCH 33.1 MCHC 34.1 RDW 14.5 Plt Count 37 L MPV 8.0 Prelim Diff (Auto) Manual diff required WBC Differential Manual diff final Seg Neuts % (Manual) 5 L Lymphocytes % (Manual) 94 H Monocytes % (Manual) 1 Plasma Cell % (Manual) Abs Neuts (Manual) 1.6 L Differential Comment . Smudge Cells Present H Platelet Estimate Low L Platelet Morphology Normal Tear Drop Cells 1+ H POC Glucose 219 H 132 H - Imaging Chest X-Ray 08/31/18 19:26 CONCLUSION: No evidence of acute cardiopulmonary disease. Hip X-Ray 09/01/18 00:00 CONCLUSION: Satisfactory postoperative appearance of the left hip status post ORIF of an intertrochanteric fracture. - Procedures - Preoperative Diagnosis (1) Closed intertrochanteric fracture Date of procedure: 09/01/18 Procedure: Left hip reduction and intramedullary fixation Anesthesia: GETA Surgeon: Bg Fulton MD Hospitalist Medical Director: DAWIT Ponce PA-C Assessment and Plan - Plan This is a pleasant 88 y/o Female with history of Breast Cancer, Chronic Lymphatic Leukemia, Dementia Dm II, Ms. diabetic neuropathy and nephropathy, hypothyroidism, and stage IV chronic kidney disease who presented to the emergency room following a mechanical fall at home with subsequent left hip pain. She was found to have a minimally displaced left trochanter fracture and was admitted to the hospitalist service for medical management with orthopedic consult for surgical repair. Left intertrochanteric fracture, minimally displaced -Status post Left hip reduction and Intramedullary fixation by Doctor Bg Fulton continue Pain medicine, Calcium and vitamin D supplementation, PT following. Hemoglobin today 7.1 recommended by lubricating specialist for blood transfusion recommended for discharge by Orthopedic surgery. Type 2 Diabetes Mellitus -Continue home Levemir but reduce dosage to 8 units at bedtime during acute hospitalization - Accu-Cheks before meals and at bedtime with low-dose NovoLog sliding scale coverage - Hypoglycemia protocol - Monitor trends and blood glucose readings and adjust treatments as indicated Chronic lymphocytic leukemia currently on chemotherapy status post four units of PRBCs. -09/03 as per Doctor Elmer she has chronic Lymphocytic Leukemia, on hold Ventoclax, she has aggressive form of her disease, her Daughter asking to decrease Narcotic management, As per Oncology if survive 4 to 6 weeks will arrange for needle biopsy of the left breast. 09/04: today Hemoglobin 7.1 giving two units of PRBCs as per junk removal specialist. Chronic kidney disease -BUN 28, creatinine 1.49, seen patient with dehydration and given IV fluids. today eating and drinking better recommended removed IV fluids. Diabetic neuropathy -Continue home gabapentin DVT prophylaxis -SCDs Oncology and Orthopedic surgery following. Code Status: DNR Discussed Condition With: Patient, and nurse Miss Flowers Discharge Planning: Once cleared by specialists.
[2018-09-04] MEDS: Sodium Chloride 0.9% 2 ML Flush BID IV.FLUSH SCH ×2 (10:19→21:25)
[2018-09-04] MEDS: Insulin NovoLOG Aspart Correctional Sugar Inj SQ SCH ×4 (10:19→21:25)
[2018-09-04] MEDS: VENCLEXTA 100 MG PO SCH (10:19)
[2018-09-04] MEDS: Rivaroxaban 10 MG Tablet PO SCH (11:53)
[2018-09-04] MEDS: Insulin Detemir Inj 1,000 UNIT/10 ML Vial SQ SCH (21:25)
[2018-09-05] MEDS: Acetaminophen 500 MG Tablet PO PRN ×3 (05:20→16:24)
--- NOTE | 2018-09-05 07:41 | P.PNOP ---
Subjective Interval history: Moderate confusion with dementia. Complains of left hip pain. Physical Exam Vital signs: Vital Signs 09/04/18 08:00 09/04/18 12:00 09/04/18 16:00 Temperature 97.7 F 95.5 F L 98.8 F Pulse Rate 85 92 H 77 Respiratory Rate 17 18 18 Blood Pressure 122/58 L 165/69 H 129/56 L Pulse Oximetry 100 100 98 09/04/18 19:20 09/04/18 20:05 09/04/18 21:49 Temperature 98.3 F 98.3 F Pulse Rate 78 81 70 Respiratory Rate 16 16 Blood Pressure 143/65 H 143/65 H Pulse Oximetry 100 100 09/04/18 21:56 09/04/18 22:07 09/04/18 23:53 Temperature 99.4 F 98.7 F Pulse Rate 91 H 77 82 Respiratory Rate 18 18 Blood Pressure 148/67 H 134/61 Pulse Oximetry 98 99 09/05/18 01:23 09/05/18 01:42 09/05/18 04:22 Temperature 98.2 F 99.9 F H Pulse Rate 84 82 78 Respiratory Rate 17 16 Blood Pressure 155/70 H 153/68 H Pulse Oximetry 95 09/05/18 04:55 Temperature 99.5 F Pulse Rate 86 Respiratory Rate 17 Blood Pressure 148/65 H Pulse Oximetry 99 Intake & Output 09/04/18 09/05/18 09/05/18 18:59 06:59 18:59 Intake Total 570 / 570 1430 / 1430 Output Total 600 / 600 1250 / 1250 Balance -30 / -30 180 / 180 Weight 58.8 kg Intake: Oral 570 / 570 630 / 630 Intake (Blood Product) Amt 800 / 800 Rbc As-3 Leukoreduced Unit 400 / 400 [id number] Rbc As-3 Leukoreduced Unit 400 / 400 [id number] Output: Urine Amount (Catheter) 600 / 600 1250 / 1250 Indwelling Urethral Catheter 1250 / 1250 Straight 600 / 600 Other: Date of Last Bowel Movement 08/31/18 # Bowel Movements 0 Narrative: Left lower extremity clean dry dressings intact. Moderate swelling. Intact sensation distally with good capillary refills. She has active dorsiflexion plantar flexion of foot - Urinary Catheter Management Indwelling Urethral Catheter Cath placed during this visit: yes, but has since been removed by the nurse Reason for continuing: Chronic Urinary Retention Insertion date: 09/04/18 Insertion time: 21:24 Removal date: 09/03/18 Removal time: 03:40 Straight Cath placed during this visit: yes, but has since been removed by the nurse Reason for continuing: Chronic Urinary Retention Insertion date: 09/04/18 Insertion time: 15:15 Removal date: 09/04/18 Removal time: 15:20 Results - Labs CBC & Chem 7: 09/04/18 05:09 09/01/18 06:21 Laboratory Results - last 24 hr 09/04/18 09/04/18 09/04/18 08:27 11:28 17:34 POC Glucose 132 H 167 H 187 H Total Bilirubin Blood Type Antibody Screen MTS Gel Crossmatch Bld Prod Order Comment 09/04/18 09/04/18 09/04/18 17:47 17:47 18:36 POC Glucose 220 H Total Bilirubin 0.6 Blood Type B Negative Antibody Screen Negative MTS Gel Crossmatch See Detail Bld Prod Order Comment 09/04/18 19:56 POC Glucose 186 H Total Bilirubin Blood Type Antibody Screen MTS Gel Crossmatch Bld Prod Order Comment - Procedures - Preoperative Diagnosis (1) Closed intertrochanteric fracture Date of procedure: 09/01/18 Procedure: Left hip reduction and intramedullary fixation Anesthesia: GETA Surgeon: Bg Fulton MD Marketing Lead: DAWIT Ponce PA-C Assessment and Plan - Assessment and Plan 1) Left intertrochanteric femur fracture status post IM nail POD 4 Physical therapy 50% weightbearing left lower extremity Begin daily dressing changes POD 2 with Xeroform and Primapore(if significant drainage 4 x 4's ABD and paper tape) Calcium and vitamin D supplementation Physical therapy consult Case management for rehab placement -orthopedically cleared for discharge Follow-up with Dr. Fulton in 2 weeks SCDs, Catrachita Hollingsworth postoperatively
[2018-09-05] MEDS: Insulin NovoLOG Aspart Correctional Sugar Inj SQ SCH ×4 (08:23→20:11)
--- NOTE | 2018-09-05 09:17 | P.PN ---
Subjective Interval history: This is a pleasant 88 y/o Female with history of Breast Cancer, Chronic Lymphatic Leukemia, Dementia Dm II, Ms. diabetic neuropathy and nephropathy, hypothyroidism, and stage IV chronic kidney disease who presented to the emergency room following a mechanical fall at home with subsequent left hip pain. She was found to have a minimally displaced left trochanter fracture and was admitted to the hospitalist service for medical management with orthopedic consult for surgical repair. 09/01: Seen in her bedroom, status post Left hip reduction and Intramedullary fixation, no nausea, vomit or diarrhea, continue present care. has Alzheimer her Daughter and Granddaughter in the room. 09/02: Stable in her bedroom but having anemia with hemoglobin 6.2 discussed with Blood bank they have two more units for the patient started blood transfusion at this time. 09/03: Patient at this time with her Daughter in the room, seen by Orthopedic surgery and recommended for SNF placement, seen by operations and maintenance specialist, she has chronic Lymphocytic Leukemia , on hold Ventoclax, she has aggressive form of her disease, her Daughter asking to decrease Narcotic management, received two units of PRBCs today her Hemoglobin 8.2, as per Oncology if survive 4 to 6 weeks will arrange for needle biopsy of the left breast. 09/04: hemoglobin 7.1 patient on IV fluids probable dilutional effect now, asked the nurse Miss Pradhan to notify health safety specialist, who recommended for blood transfusion, also asked for multiple laboratory studies. as per Orthopedic surgery recommended for Physical Therapy 50% weightbearing left lower extremity, begin daily dressing changes POD 2, Calcium vitamin D supplementation, cleared for discharge by surgeon. working with Physical Therapy at this time. 09/05: Patient seen in her bedroom, her Daughter present, health safety specialist doctor Elmer in to see the patient states the patient will need to be followed in house for at least two days, asked for Haptoglobin to rule out Hemolysis. secondary to CLL, If the platelets are below 40,000 would hold Xarelto in spite of the risks of DVT and pulmonary emboli. If platelets are consistently above 50,000 would resume prophylactic anticoagulation with either Lovenox or Xarelto. Physical Exam Vital signs: Vital Signs 09/04/18 12:00 09/04/18 16:00 09/04/18 19:20 Temperature 95.5 F L 98.8 F 98.3 F Pulse Rate 92 H 77 78 Respiratory Rate 18 18 16 Blood Pressure 165/69 H 129/56 L 143/65 H Pulse Oximetry 100 98 100 09/04/18 20:05 09/04/18 21:49 09/04/18 21:56 Temperature 98.3 F 99.4 F Pulse Rate 81 70 91 H Respiratory Rate 16 18 Blood Pressure 143/65 H 148/67 H Pulse Oximetry 100 98 09/04/18 22:07 09/04/18 23:53 09/05/18 01:23 Temperature 98.7 F 98.2 F Pulse Rate 77 82 84 Respiratory Rate 18 17 Blood Pressure 134/61 155/70 H Pulse Oximetry 99 95 09/05/18 01:42 09/05/18 04:22 09/05/18 04:55 Temperature 99.9 F H 99.5 F Pulse Rate 82 78 86 Respiratory Rate 16 17 Blood Pressure 153/68 H 148/65 H Pulse Oximetry 99 09/05/18 08:00 Temperature 97.8 F Pulse Rate 67 Respiratory Rate 18 Blood Pressure 138/65 Pulse Oximetry 100 Intake & Output 09/04/18 09/05/18 09/05/18 18:59 06:59 18:59 Intake Total 570 / 570 1430 / 1430 Output Total 600 / 600 1250 / 1250 Balance -30 / -30 180 / 180 Weight 58.8 kg Intake: Oral 570 / 570 630 / 630 Intake (Blood Product) Amt 800 / 800 Rbc As-3 Leukoreduced Unit 400 / 400 [id number] Rbc As-3 Leukoreduced Unit 400 / 400 [id number] Output: Urine Amount (Catheter) 600 / 600 1250 / 1250 Indwelling Urethral Catheter 1250 / 1250 Straight 600 / 600 Other: Date of Last Bowel Movement 08/31/18 # Bowel Movements 0 Narrative: GENERAL: Well-developed patient, in no apparent distress. CARDIOVASCULAR: Regular rate and rhythm without murmurs, gallops, or rubs. RESPIRATORY: Clear to auscultation. Breath sounds equal bilaterally. No wheezes , rales, or rhonchi. GASTROINTESTINAL: Abdomen soft, non-tender, nondistended. Normal active bowel sounds MUSCULOSKELETAL: Extremities without clubbing, cyanosis, Left Hip dressed. NEURO: Alert & Oriented x4 to person, place, time, situation. Moves all ext x4 - Urinary Catheter Management Indwelling Urethral Catheter Cath placed during this visit: yes, but has since been removed by the nurse Reason for continuing: Chronic Urinary Retention Insertion date: 09/04/18 Insertion time: 21:24 Removal date: 09/03/18 Removal time: 03:40 Straight Cath placed during this visit: yes, but has since been removed by the nurse Reason for continuing: Chronic Urinary Retention Insertion date: 09/04/18 Insertion time: 15:15 Removal date: 09/04/18 Removal time: 15:20 Results - Labs CBC & Chem 7: 09/05/18 10:32 09/01/18 06:21 Laboratory Results - last 24 hr 09/04/18 09/04/18 09/04/18 11:28 17:34 17:47 POC Glucose 167 H 187 H Total Bilirubin 0.6 Blood Type Antibody Screen MTS Gel Crossmatch Bld Prod Order Comment 09/04/18 09/04/18 09/04/18 17:47 18:36 19:56 POC Glucose 220 H 186 H Total Bilirubin Blood Type B Negative Antibody Screen Negative MTS Gel Crossmatch See Detail Bld Prod Order Comment 09/05/18 07:43 POC Glucose 73 Total Bilirubin Blood Type Antibody Screen MTS Gel Crossmatch Bld Prod Order Comment - Imaging Chest X-Ray 08/31/18 19:26 CONCLUSION: No evidence of acute cardiopulmonary disease. Hip X-Ray 09/01/18 00:00 CONCLUSION: Satisfactory postoperative appearance of the left hip status post ORIF of an intertrochanteric fracture. - Procedures - Preoperative Diagnosis (1) Closed intertrochanteric fracture Date of procedure: 09/01/18 Procedure: Left hip reduction and intramedullary fixation Anesthesia: GETA Surgeon: Bg Fulton MD Retail Grocer: DAWIT Ponce PA-C Assessment and Plan - Plan This is a pleasant 88 y/o Female with history of Breast Cancer, Chronic Lymphatic Leukemia, Dementia Dm II, Ms. diabetic neuropathy and nephropathy, hypothyroidism, and stage IV chronic kidney disease who presented to the emergency room following a mechanical fall at home with subsequent left hip pain. She was found to have a minimally displaced left trochanter fracture and was admitted to the hospitalist service for medical management with orthopedic consult for surgical repair. Left intertrochanteric fracture, minimally displaced -Status post Left hip reduction and Intramedullary fixation by Doctor Bg Fulton continue Pain medicine, Calcium and vitamin D supplementation, PT following. Hemoglobin today 7.1 recommended by review specialist for blood transfusion recommended for discharge by Orthopedic surgery. Type 2 Diabetes Mellitus -Continue home Levemir but reduce dosage to 8 units at bedtime during acute hospitalization - Accu-Cheks before meals and at bedtime with low-dose NovoLog sliding scale coverage - Hypoglycemia protocol - Monitor trends and blood glucose readings and adjust treatments as indicated Chronic lymphocytic leukemia currently on chemotherapy status post four units of PRBCs. -09/03 as per Doctor Payne she has chronic Lymphocytic Leukemia, on hold Ventoclax, she has aggressive form of her disease, her Daughter asking to decrease Narcotic management, As per Oncology if survive 4 to 6 weeks will arrange for needle biopsy of the left breast. 09/04: today Hemoglobin 7.1 giving two units of PRBCs as per health safety specialist. 09/05: health safety specialist doctor Payne in to see the patient recommended the patient will need to be followed in house for at least two days, asked for Haptoglobin to rule out Hemolysis secondary to CLL, If the platelets are below 40,000 would hold Xarelto in spite of the risks of DVT and pulmonary emboli. If platelets are consistently above 50,000 would resume prophylactic anticoagulation with either Lovenox or Xarelto. Chronic kidney disease -BUN 28, creatinine 1.49, seen patient with dehydration and given IV fluids. today eating and drinking better recommended removed IV fluids. Diabetic neuropathy -Continue home gabapentin DVT prophylaxis -SCDs Oncology and Orthopedic surgery following. Code Status: DNR Discussed Condition With: Patient, her Daughter, Nurse and health safety specialist doctor Payne Discharge Planning: Once cleared by specialists.
--- NOTE | 2018-09-05 10:20 | P.PNONC ---
Subjective Interval history: Feeling a little better and stronger. Objective Vital Signs/Intake & Output: Vital Signs 09/04/18 12:00 09/04/18 16:00 09/04/18 19:20 Temperature 95.5 F L 98.8 F 98.3 F Pulse Rate 92 H 77 78 Respiratory Rate 18 18 16 Blood Pressure 165/69 H 129/56 L 143/65 H Pulse Oximetry 100 98 100 09/04/18 20:05 09/04/18 21:49 09/04/18 21:56 Temperature 98.3 F 99.4 F Pulse Rate 81 70 91 H Respiratory Rate 16 18 Blood Pressure 143/65 H 148/67 H Pulse Oximetry 100 98 09/04/18 22:07 09/04/18 23:53 09/05/18 01:23 Temperature 98.7 F 98.2 F Pulse Rate 77 82 84 Respiratory Rate 18 17 Blood Pressure 134/61 155/70 H Pulse Oximetry 99 95 09/05/18 01:42 09/05/18 04:22 09/05/18 04:55 Temperature 99.9 F H 99.5 F Pulse Rate 82 78 86 Respiratory Rate 16 17 Blood Pressure 153/68 H 148/65 H Pulse Oximetry 99 09/05/18 08:00 Temperature 97.8 F Pulse Rate 67 Respiratory Rate 18 Blood Pressure 138/65 Pulse Oximetry 100 Intake & Output 09/04/18 09/05/18 09/05/18 18:59 06:59 18:59 Intake Total 570 / 570 1430 / 1430 Output Total 600 / 600 1250 / 1250 Balance -30 / -30 180 / 180 Weight 58.8 kg Intake: Oral 570 / 570 630 / 630 Intake (Blood Product) Amt 800 / 800 Rbc As-3 Leukoreduced Unit 400 / 400 [id number] Rbc As-3 Leukoreduced Unit 400 / 400 [id number] Output: Urine Amount (Catheter) 600 / 600 1250 / 1250 Indwelling Urethral Catheter 1250 / 1250 Straight 600 / 600 Other: Date of Last Bowel Movement 08/31/18 09/05/18 # Bowel Movements 0 Result Diagrams: 09/04/18 05:09 09/01/18 06:21 Laboratory Results: Laboratory Results - last 24 hr 09/04/18 09/04/18 09/04/18 11:28 17:34 17:47 POC Glucose 167 H 187 H Total Bilirubin 0.6 Blood Type Antibody Screen MTS Gel Crossmatch Bld Prod Order Comment 09/04/18 09/04/18 09/04/18 17:47 18:36 19:56 POC Glucose 220 H 186 H Total Bilirubin Blood Type B Negative Antibody Screen Negative MTS Gel Crossmatch See Detail Bld Prod Order Comment 09/05/18 07:43 POC Glucose 73 Total Bilirubin Blood Type Antibody Screen MTS Gel Crossmatch Bld Prod Order Comment Medications: Active Medications Generic Name Dose Route Start Last Admin Trade Name Freq PRN Reason Stop Dose Admin Acetaminophen 500 mg 09/03/18 08:53 09/05/18 05:20 Tylenol PO 500 mg Q4H PRN Administration PAIN 1-2 Hydrocodone Bitart/Acetaminophen 1 tab 08/31/18 22:20 09/03/18 02:29 [place] 5/325 PO 1 tab Q4H PRN Administration PAIN SCALE 3 TO 5 Calcium/Vitamin D 1 tab 09/01/18 13:30 09/04/18 17:54 [place] With D 250/125 Mg PO 1 tab TID JESSICA Administration Furosemide 20 mg 09/04/18 19:40 09/05/18 00:57 Lasix Inj IV.PUSH 09/05/18 23:59 20 mg ONCE PRN Administration after 1st unit Gabapentin 100 mg 09/01/18 09:00 09/04/18 21:25 Neurontin PO 100 mg BID JESSICA Administration Insulin Aspart 0 unit 09/01/18 08:00 09/05/18 08:23 Novolog Insulin Correctional Sugar Inj SQ Not Given [facility] Protocol Insulin Detemir 12 unit 09/03/18 21:00 09/04/18 21:25 Levemir Inj SQ 12 unit HS JESSICA Administration Lactulose 30 ml 08/31/18 21:34 09/03/18 21:02 Lactulose Liq PO 30 ml DAILY PRN Administration SEVERE CONSITIPATION Morphine Sulfate 2 mg 08/31/18 22:20 09/01/18 17:35 Morphine Inj IV.PUSH 2 mg Q3H PRN Administration BREAKTHROUGH PAIN Ondansetron HCl 4 mg 09/01/18 17:15 09/04/18 11:00 Zofran Inj IV.PUSH 4 mg Q6H PRN Administration NAUSEA OR VOMITING Pt Own Venclexta 100 0 each 09/01/18 09:00 09/04/18 10:19 Mg PO Not Given DAILY JESSICA Sennosides 17.2 mg 08/31/18 21:34 09/04/18 17:54 Senokot PO 17.2 mg Q12H PRN Administration Moderate Constipation Sodium Chloride 2 ml 09/01/18 09:00 09/04/18 21:25 Ns Flush IV.FLUSH 2 ml BID JESSICA Administration Vitamin D 5,000 unit 09/02/18 09:00 09/04/18 08:23 Vitamin D3 PO 5,000 unit DAILY JESSICA Administration Objective Remarks: GENERAL: Frail, weak, mild confusion which is not new SKIN: Warm and dry. HEAD: Normocephalic. EYES: No scleral icterus. No injection or drainage. NECK: Supple, trachea midline. No JVD or lymphadenopathy. LYMPHATIC: No adenopathy. CARDIOVASCULAR: Regular rate and rhythm without murmurs. RESPIRATORY: Breath sounds equal bilaterally. No accessory muscle use. GASTROINTESTINAL: Abdomen soft, non-tender, nondistended. Spleen 2 cm below left costal margin EXTREMITIES: Trace edema MUSCULOSKELETAL: Poor muscle tone. NEUROLOGICAL: Mild confusion PSYCHIATRIC: Forgetful with poor memory and anxious Assessment/Plan - Plan The patient has chronic lymphocytic leukemia. For the present time will hold Ventoclax. If she is able to survive the next several weeks will resume Ventoclax at 100 mg a day and monitor. She has an aggressive form of CLL. She has confusion. She tolerates poorly narcotics. Continue Tylenol. She has anemia and would recommend keeping her hemoglobin greater than 8. This may require transfusions. Await CBC and platelet count from today. I have ordered haptoglobin to make sure she is having no hemolysis which can occur with CLL. I would like her to have a stable hemoglobin for 2 days before discharge to the rehab center as she has required frequent blood transfusions within the past week and has not been stable Her neutrophil count is adequate and there is no need for Neupogen Her overall health is extremely poor with recent fracture to the hip, poor prognosis CLL, progressive dementia, and probable left breast cancer. If she survives the next 4-6 weeks will arrange for needle biopsy of the left breast and if she is ER positive will consider an aromatase inhibitor with the other possibility being surgical removal of the tumor. At the moment she is too frail to undergo further studies and immediate treatment of the breast cancer would not be important if her prognosis is measured in months. If the platelets are below 40,000 would hold Xarelto in spite of the risks of DVT and pulmonary emboli. If platelets are consistently above 50,000 would resume prophylactic anticoagulation with either Lovenox or Xarelto. Would want to make sure that the hemoglobin is stable and there is no evidence of bleeding. The above was discussed with the patient's daughter and her hospitalist.
[2018-09-05] MEDS: Gabapentin 100 MG Capsule PO SCH ×2 (10:23→20:11)
[2018-09-05] MEDS: VENCLEXTA 100 MG PO SCH (10:24)
[2018-09-05] MEDS: Calcium/Vitamin D 250/125 MG Tablet PO SCH ×3 (10:24→18:08)
[2018-09-05] MEDS: Sodium Chloride 0.9% 2 ML Flush BID IV.FLUSH SCH ×2 (10:24→20:12)
[2018-09-05 11:46] LABS: Hemoglobin 9.8 gm/dL (11.6-15.3)
[2018-09-05 12:37] LABS: Hematocrit 28.3 % (35.0-46.0); Hemoglobin 9.7 gm/dL (11.6-15.3); Mean Corpuscular HGB Conc 34.4 % (32.0-36.0); Mean Corpuscular Hemoglobin 32.8 pg (27.0-34.0); Mean Corpuscular Volume 95.3 fL (80.0-100.0); Mean Platelet Volume 8.4 fL (7.0-11.0); Platelet Count 40 th/mm3 (150-450); Red Blood Count 2.97 mil/mm3 (4.00-5.30); Red Cell Distribution Width 15.4 % (11.6-17.2); White Blood Count 36.3 th/mm3 (4.0-11.0)
[2018-09-05 13:19] LABS: Monocytes 1 % (0-8)
[2018-09-05 13:20] LABS: Lymphocytes 94 % (9-44)
[2018-09-05 13:21] LABS: Platelet Morphology Normal (Normal); Smudge Cells Present
[2018-09-05] MEDS: Insulin Detemir Inj 1,000 UNIT/10 ML Vial SQ SCH (20:11)
[2018-09-06] MEDS: Acetaminophen 500 MG Tablet PO PRN ×5 (00:13→21:50)
[2018-09-06 07:18] LABS: Hematocrit 27.8 % (35.0-46.0); Hemoglobin 9.3 gm/dL (11.6-15.3); Mean Corpuscular HGB Conc 33.5 % (32.0-36.0); Mean Corpuscular Hemoglobin 32.3 pg (27.0-34.0); Mean Corpuscular Volume 96.4 fL (80.0-100.0); Mean Platelet Volume 8.2 fL (7.0-11.0); Platelet Count 44 th/mm3 (150-450); Red Blood Count 2.89 mil/mm3 (4.00-5.30); Red Cell Distribution Width 15.6 % (11.6-17.2)
[2018-09-06 07:45] LABS: Haptoglobin 204 mg/dL (30-200); Lactate Dehydrogenase 268 U/L (84-246)
[2018-09-06] MEDS: Insulin NovoLOG Aspart Correctional Sugar Inj SQ SCH ×4 (07:59→20:45)
[2018-09-06] MEDS: Gabapentin 100 MG Capsule PO SCH ×2 (08:00→20:44)
[2018-09-06] MEDS: Calcium/Vitamin D 250/125 MG Tablet PO SCH ×3 (08:00→17:16)
[2018-09-06] MEDS: VENCLEXTA 100 MG PO SCH (08:01)
[2018-09-06] MEDS: Sodium Chloride 0.9% 2 ML Flush BID IV.FLUSH SCH ×2 (08:01→20:45)
[2018-09-06 08:34] LABS: Smudge Cells Present
[2018-09-06 08:35] LABS: Lymphocytes 98 % (9-44)
--- NOTE | 2018-09-06 08:59 | P.PN ---
Subjective Interval history: This is a pleasant 88 y/o Female with history of Breast Cancer, Chronic Lymphatic Leukemia, Dementia Dm II, Ms. diabetic neuropathy and nephropathy, hypothyroidism, and stage IV chronic kidney disease who presented to the emergency room following a mechanical fall at home with subsequent left hip pain. She was found to have a minimally displaced left trochanter fracture and was admitted to the hospitalist service for medical management with orthopedic consult for surgical repair. 09/01: Seen in her bedroom, status post Left hip reduction and Intramedullary fixation, no nausea, vomit or diarrhea, continue present care. has Alzheimer her Daughter and Granddaughter in the room. 09/02: Stable in her bedroom but having anemia with hemoglobin 6.2 discussed with Blood bank they have two more units for the patient started blood transfusion at this time. 09/03: Patient at this time with her Daughter in the room, seen by Orthopedic surgery and recommended for SNF placement, seen by data processing specialist, she has chronic Lymphocytic Leukemia , on hold Ventoclax, she has aggressive form of her disease, her Daughter asking to decrease Narcotic management, received two units of PRBCs today her Hemoglobin 8.2, as per Oncology if survive 4 to 6 weeks will arrange for needle biopsy of the left breast. 09/04: hemoglobin 7.1 patient on IV fluids probable dilutional effect now, asked the nurse Miss Pradhan to notify marine specialist, who recommended for blood transfusion, also asked for multiple laboratory studies. as per Orthopedic surgery recommended for Physical Therapy 50% weightbearing left lower extremity, begin daily dressing changes POD 2, Calcium vitamin D supplementation, cleared for discharge by surgeon. working with Physical Therapy at this time. 09/05: Patient seen in her bedroom, her Daughter present, marine specialist doctor Elmer in to see the patient states the patient will need to be followed in house for at least two days, asked for Haptoglobin to rule out Hemolysis. secondary to CLL, If the platelets are below 40,000 would hold Xarelto in spite of the risks of DVT and pulmonary emboli. If platelets are consistently above 50,000 would resume prophylactic anticoagulation with either Lovenox or Xarelto. 09/06: Stable in her bedroom, no nausea, vomit or diarrhea, in sitting position , discussed with patient, nurse and her two daughters, Hemoglobin 9.3 continue observation as per data processing specialist. Physical Exam Vital signs: Vital Signs 09/05/18 12:00 09/05/18 12:33 09/05/18 16:00 Temperature 98.7 F 98.1 F Pulse Rate 74 72 Respiratory Rate 18 16 18 Blood Pressure 135/65 133/60 Pulse Oximetry 99 99 09/05/18 16:54 09/05/18 19:58 09/05/18 20:00 Temperature 98.0 F Pulse Rate 76 81 Respiratory Rate 18 17 Blood Pressure 125/58 L Pulse Oximetry 100 09/06/18 00:10 09/06/18 00:11 09/06/18 00:43 Temperature 98.1 F Pulse Rate 84 79 Respiratory Rate 17 17 Blood Pressure 161/69 H Pulse Oximetry 98 09/06/18 03:44 09/06/18 03:55 09/06/18 04:05 Temperature 98.1 F Pulse Rate 72 75 Respiratory Rate 17 16 Blood Pressure 144/63 H Pulse Oximetry 99 09/06/18 07:08 09/06/18 08:00 09/06/18 08:30 Temperature 97.6 F Pulse Rate 67 68 Respiratory Rate 18 Blood Pressure 142/63 H Pulse Oximetry 100 Intake & Output 09/05/18 09/06/18 09/06/18 18:59 06:59 18:59 Intake Total 960 / 960 600 / 600 Output Total 1100 / 1100 750 / 750 Balance -140 / -140 -150 / -150 Intake: Oral 960 / 960 600 / 600 Output: Urine 1100 / 1100 Urine Amount (Catheter) 750 / 750 Indwelling Urethral Catheter 750 / 750 Other: Date of Last Bowel Movement 09/05/18 09/05/18 09/05/18 # Bowel Movements 0 Narrative: GENERAL: Well-developed patient, in no apparent distress. CARDIOVASCULAR: Regular rate and rhythm without murmurs, gallops, or rubs. RESPIRATORY: Clear to auscultation. Breath sounds equal bilaterally. No wheezes , rales, or rhonchi. GASTROINTESTINAL: Abdomen soft, non-tender, nondistended. Normal active bowel sounds MUSCULOSKELETAL: Extremities without clubbing, cyanosis, Left Hip dressed. NEURO: Alert & Oriented x4 to person, place, time, situation. Moves all ext x4 - Urinary Catheter Management Indwelling Urethral Catheter Cath placed during this visit: yes, but has since been removed by the nurse Reason for continuing: Terminally ill/Comfort care Insertion date: 09/04/18 Insertion time: 21:24 Removal date: 09/03/18 Removal time: 03:40 Straight Cath placed during this visit: yes, but has since been removed by the nurse Reason for continuing: Chronic Urinary Retention Insertion date: 09/04/18 Insertion time: 15:15 Removal date: 09/04/18 Removal time: 15:20 Results - Labs CBC & Chem 7: 09/06/18 06:58 09/01/18 06:21 Laboratory Results - last 24 hr 09/05/18 09/05/18 09/05/18 10:32 10:32 12:08 WBC 36.3 H RBC 2.97 L Hgb 9.8 L D 9.7 L Hct 28.0 L 28.3 L MCV 95.3 MCH 32.8 MCHC 34.4 RDW 15.4 Plt Count 40 L MPV 8.4 Prelim Diff (Auto) Manual diff required WBC Differential Manual diff final Seg Neuts % (Manual) 5 L Band Neuts % (Manual) 1 Lymphocytes % (Manual) 94 H Monocytes % (Manual) 1 Abs Neuts (Manual) 2.2 Differential Comment . Smudge Cells Present H Platelet Estimate Low L Platelet Morphology Normal Haptoglobin POC Glucose 115 H Lactate Dehydrogenase 09/05/18 09/05/18 09/06/18 16:30 20:03 06:58 WBC RBC Hgb Hct MCV MCH MCHC RDW Plt Count MPV Prelim Diff (Auto) WBC Differential Seg Neuts % (Manual) Band Neuts % (Manual) Lymphocytes % (Manual) Monocytes % (Manual) Abs Neuts (Manual) Differential Comment Smudge Cells Platelet Estimate Platelet Morphology Haptoglobin 204 H POC Glucose 180 H 197 H Lactate Dehydrogenase 268 H 09/06/18 09/06/18 06:58 07:21 WBC 45.0 H RBC 2.89 L Hgb 9.3 L Hct 27.8 L MCV 96.4 MCH 32.3 MCHC 33.5 RDW 15.6 Plt Count 44 L MPV 8.2 Prelim Diff (Auto) Manual diff required WBC Differential Manual diff final Seg Neuts % (Manual) 1 L Band Neuts % (Manual) 1 Lymphocytes % (Manual) 98 H Monocytes % (Manual) Abs Neuts (Manual) 0.9 L Differential Comment . Smudge Cells Present H Platelet Estimate Platelet Morphology Haptoglobin POC Glucose 99 Lactate Dehydrogenase - Imaging Chest X-Ray 11/04/18 19:26 CONCLUSION: No evidence of acute cardiopulmonary disease. Hip X-Ray 09/01/18 00:00 CONCLUSION: Satisfactory postoperative appearance of the left hip status post ORIF of an intertrochanteric fracture. - Procedures - Preoperative Diagnosis (1) Closed intertrochanteric fracture Date of procedure: 09/01/18 Procedure: Left hip reduction and intramedullary fixation Anesthesia: GETA Surgeon: Bg Fulton MD Technical Support Associate: DAWIT Ponce PA-C Assessment and Plan - Plan This is a pleasant 88 y/o Female with history of Breast Cancer, Chronic Lymphatic Leukemia, Dementia Dm II, Ms. diabetic neuropathy and nephropathy, hypothyroidism, and stage IV chronic kidney disease who presented to the emergency room following a mechanical fall at home with subsequent left hip pain. She was found to have a minimally displaced left trochanter fracture and was admitted to the hospitalist service for medical management with orthopedic consult for surgical repair. Left intertrochanteric fracture, minimally displaced -Status post Left hip reduction and Intramedullary fixation by Doctor Bg Fulton continue Pain medicine, Calcium and vitamin D supplementation, PT following. Status post Blood transfusion six units of PRBCs. Hemoglobin today 9.3 recommended for discharge by Orthopedic surgery. Type 2 Diabetes Mellitus -Continue home Levemir but reduce dosage to 8 units at bedtime during acute hospitalization - Accu-Cheks before meals and at bedtime with low-dose NovoLog sliding scale coverage - Hypoglycemia protocol - Monitor trends and blood glucose readings and adjust treatments as indicated Chronic lymphocytic leukemia currently on chemotherapy status post four units of PRBCs. -09/03 as per Doctor Payne she has chronic Lymphocytic Leukemia, on hold Ventoclax, she has aggressive form of her disease, her Daughter asking to decrease Narcotic management, As per Oncology if survive 4 to 6 weeks will arrange for needle biopsy of the left breast. 09/04: today Hemoglobin 7.1 giving two units of PRBCs as per marine specialist. 09/05: marine specialist doctor Payne in to see the patient recommended the patient will need to be followed in house for at least two days, asked for Haptoglobin to rule out Hemolysis secondary to CLL, If the platelets are below 40,000 would hold Xarelto in spite of the risks of DVT and pulmonary emboli. If platelets are consistently above 50,000 would resume prophylactic anticoagulation with either Lovenox or Xarelto. today [id number] Chronic kidney disease -BUN 28, creatinine 1.49, seen patient with dehydration and given IV fluids. today eating and drinking better recommended removed IV fluids. Diabetic neuropathy -Continue home gabapentin DVT prophylaxis -SCDs Oncology and Orthopedic surgery following. Code Status: DNR Discussed Condition With: Patient, Nurse, her two daughters. Discharge Planning: Once cleared by specialists.
--- NOTE | 2018-09-06 14:24 | P.PNONC ---
Subjective Interval history: Afebrile. Patient appears to be sleeping, in no acute distress. Her daughter is at the bedside. Her daughter reports that she has been out of bed to chair with physical therapy. Objective Vital Signs/Intake & Output: Vital Signs 09/05/18 16:00 09/05/18 16:54 09/05/18 19:58 Temperature 98.1 F Pulse Rate 72 76 Respiratory Rate 18 18 Blood Pressure 133/60 Pulse Oximetry 99 09/05/18 20:00 09/06/18 00:10 09/06/18 00:11 Temperature 98.0 F 98.1 F Pulse Rate 81 84 79 Respiratory Rate 17 17 Blood Pressure 125/58 L 161/69 H Pulse Oximetry 100 98 09/06/18 00:43 09/06/18 03:44 09/06/18 03:55 Temperature Pulse Rate 72 Respiratory Rate 17 17 Blood Pressure Pulse Oximetry 09/06/18 04:05 09/06/18 07:08 09/06/18 08:00 Temperature 98.1 F 97.6 F Pulse Rate 75 67 68 Respiratory Rate 16 Blood Pressure 144/63 H 142/63 H Pulse Oximetry 99 100 09/06/18 08:30 09/06/18 12:00 09/06/18 12:47 Temperature 97.3 F L Pulse Rate 88 Respiratory Rate 18 18 18 Blood Pressure 136/64 Pulse Oximetry 100 Intake & Output 09/05/18 09/06/18 09/06/18 18:59 06:59 18:59 Intake Total 960 / 960 600 / 600 Output Total 1100 / 1100 750 / 750 Balance -140 / -140 -150 / -150 Intake: Oral 960 / 960 600 / 600 Output: Urine 1100 / 1100 Urine Amount (Catheter) 750 / 750 Indwelling Urethral Catheter 750 / 750 Other: Date of Last Bowel Movement 09/05/18 09/05/18 09/05/18 # Bowel Movements 0 Result Diagrams: 09/06/18 06:58 09/01/18 06:21 Laboratory Results: Laboratory Results - last 24 hr 09/05/18 09/05/18 09/06/18 16:30 20:03 06:58 WBC RBC Hgb Hct MCV MCH MCHC RDW Plt Count MPV Prelim Diff (Auto) WBC Differential Seg Neuts % (Manual) Band Neuts % (Manual) Lymphocytes % (Manual) Abs Neuts (Manual) Differential Comment Smudge Cells Haptoglobin 204 H POC Glucose 180 H 197 H Lactate Dehydrogenase 268 H 09/06/18 09/06/18 09/06/18 06:58 07:21 12:30 WBC 45.0 H RBC 2.89 L Hgb 9.3 L Hct 27.8 L MCV 96.4 MCH 32.3 MCHC 33.5 RDW 15.6 Plt Count 44 L MPV 8.2 Prelim Diff (Auto) Manual diff required WBC Differential Manual diff final Seg Neuts % (Manual) 1 L Band Neuts % (Manual) 1 Lymphocytes % (Manual) 98 H Abs Neuts (Manual) 0.9 L Differential Comment . Smudge Cells Present H Haptoglobin POC Glucose 99 296 H Lactate Dehydrogenase Medications: Active Medications Generic Name Dose Route Start Last Admin Trade Name Freq PRN Reason Stop Dose Admin Acetaminophen 500 mg 09/03/18 08:53 09/06/18 12:17 Tylenol PO 500 mg Q4H PRN Administration PAIN 1-2 Hydrocodone Bitart/Acetaminophen 1 tab 08/31/18 22:20 09/03/18 02:29 [place] 5/325 PO 1 tab Q4H PRN Administration PAIN SCALE 3 TO 5 Al Hydroxide/Mg Hydroxide 30 ml 08/31/18 21:34 09/05/18 10:24 Milk Of Magnesia Liq PO 30 ml Q12H PRN Administration Mild Constipation Calcium/Vitamin D 1 tab 09/01/18 13:30 09/06/18 12:17 Oscal With D 250/125 Mg PO 1 tab TID JESSICA Administration Gabapentin 100 mg 09/01/18 09:00 09/06/18 08:00 Neurontin PO 100 mg BID JESSICA Administration Insulin Aspart 0 unit 09/01/18 08:00 09/06/18 12:40 Novolog Insulin Correctional Sugar Inj SQ 3 unit ACHS JESSICA Administration Protocol Insulin Detemir 12 unit 09/03/18 21:00 09/05/18 20:11 Levemir Inj SQ 12 unit HS JESSICA Administration Lactulose 30 ml 08/31/18 21:34 09/03/18 21:02 Lactulose Liq PO 30 ml DAILY PRN Administration SEVERE CONSITIPATION Morphine Sulfate 2 mg 08/31/18 22:20 09/01/18 17:35 Morphine Inj IV.PUSH 2 mg Q3H PRN Administration BREAKTHROUGH PAIN Ondansetron HCl 4 mg 09/01/18 17:15 09/04/18 11:00 Zofran Inj IV.PUSH 4 mg Q6H PRN Administration NAUSEA OR VOMITING Pt Own Venclexta 100 0 each 09/01/18 09:00 09/06/18 08:01 Mg PO Not Given DAILY JESSICA Sennosides 17.2 mg 08/31/18 21:34 09/05/18 10:25 Senokot PO 17.2 mg Q12H PRN Administration Moderate Constipation Sodium Chloride 2 ml 09/01/18 09:00 09/06/18 08:01 Ns Flush IV.FLUSH Not Given BID JESSICA Vitamin D 5,000 unit 09/02/18 09:00 09/06/18 08:00 Vitamin D3 PO 5,000 unit DAILY JESSICA Administration Objective Remarks: GENERAL: Frail elderly female patient, in no acute distress. SKIN: Warm and dry. HEAD: Normocephalic. EYES: No scleral icterus. No injection or drainage. NECK: Supple, trachea midline. CARDIOVASCULAR: Regular rate and rhythm without murmurs. RESPIRATORY: Breath sounds equal bilaterally. No accessory muscle use. GASTROINTESTINAL: Abdomen soft, non-tender, nondistended. EXTREMITIES: No cyanosis, or edema. SCDs in place. MUSCULOSKELETAL: Decreased muscle tone. NEUROLOGICAL: Sleeping. Assessment/Plan - Plan Ms. Scott is a frail 88-year-old female patient with chronic lymphocytic leukemia. She has aggressive form of CLL. Venetoclax is currently on hold. She also has a history of dementia and probable left breast cancer. She is currently hospitalized after a recent hip fracture. Recommendations: 1. CLL, venetoclax currently on hold. This may be resumed once recovered from acute illness. 2. Dementia, tolerates narcotics poorly. Continues on Tylenol for pain. 3. Neutropenia, ANC continues to fluctuate. 4. Hip fracture, management per attending. - Attending Statement The exam, history, and the medical decision-making described in the above note were completed with the assistance of the mid-level provider. I reviewed and agree with the findings presented. I attest that I had a [id number] encounter with the patient on the same day, and personally performed and documented my assessment and findings in the medical record. Patient complaining of pain in the left hip area. She has extensive bruise around that Patient has chronic lymphocytic leukemia. Venclexta is on hold Extensive discussion with the patient's daughter at bedside Monitor CBC No evidence of autoimmune hemolysis Anemia and thrombocytopenia due to Venclexta Dr. Payne will follow on Saturday
[2018-09-06] MEDS: Insulin Detemir Inj 1,000 UNIT/10 ML Vial SQ SCH (20:44)
[2018-09-07] MEDS: Acetaminophen 500 MG Tablet PO PRN ×5 (02:43→19:06)
[2018-09-07 06:29] LABS: Hemoglobin 9.5 gm/dL (11.6-15.3); Mean Corpuscular HGB Conc 33.8 % (32.0-36.0); Mean Corpuscular Hemoglobin 32.5 pg (27.0-34.0); Mean Corpuscular Volume 96.1 fL (80.0-100.0); Mean Platelet Volume 8.5 fL (7.0-11.0); Platelet Count 63 th/mm3 (150-450); Red Blood Count 2.91 mil/mm3 (4.00-5.30); Red Cell Distribution Width 15.4 % (11.6-17.2); White Blood Count 40.5 th/mm3 (4.0-11.0)
[2018-09-07 06:42] LABS: Calcium 7.8 mg/dL (8.5-10.1); Carbon Dioxide 27.7 meq/L (21.0-32.0); Potassium 4.2 meq/L (3.5-5.1)
[2018-09-07] MEDS: Insulin NovoLOG Aspart Correctional Sugar Inj SQ SCH ×4 (08:11→20:49)
[2018-09-07] MEDS: Calcium/Vitamin D 250/125 MG Tablet PO SCH ×3 (08:11→17:02)
[2018-09-07] MEDS: Gabapentin 100 MG Capsule PO SCH ×2 (08:11→20:48)
[2018-09-07] MEDS: Sodium Chloride 0.9% 2 ML Flush BID IV.FLUSH SCH ×2 (08:12→20:50)
[2018-09-07] MEDS: VENCLEXTA 100 MG PO SCH (08:14)
[2018-09-07 08:16] LABS: Lymphocytes 97 % (9-44)
[2018-09-07 08:17] LABS: Platelet Morphology Normal (Normal); RBC Morphology Normal (Normal)
--- NOTE | 2018-09-07 09:57 | P.PNIM ---
Subjective Interval history: Patient seen and examined this morning. Afebrile vital signs stable. Patient' s main complaint is that her bottom is hurting. I observed the wound on her bottom it is covered and they are working to constantly keep her on her side. At this time the goal is if she is cleared by hematology to go to the inpatient rehab for physical therapy. Feel this would be very beneficial for the patient at this time and she agrees. Physical Exam Vital signs: Vital Signs 09/06/18 12:00 09/06/18 12:47 09/06/18 16:00 Temperature 97.3 F L 97.5 F L Pulse Rate 88 78 Respiratory Rate 18 18 16 Blood Pressure 136/64 118/58 L Pulse Oximetry 100 16 L 09/06/18 17:46 09/06/18 20:00 09/07/18 00:00 Temperature 97.6 F 98.4 F Pulse Rate 92 H 87 Respiratory Rate 18 17 16 Blood Pressure 137/60 132/60 Pulse Oximetry 97 95 09/07/18 02:15 09/07/18 04:00 09/07/18 07:14 Temperature 97.8 F Pulse Rate 82 Respiratory Rate 18 16 18 Blood Pressure 122/57 L Pulse Oximetry 95 09/07/18 08:00 Temperature 97.2 F L Pulse Rate 87 Respiratory Rate 16 Blood Pressure 136/63 Pulse Oximetry 93 L Intake & Output 09/06/18 09/07/18 09/07/18 18:59 06:59 18:59 Intake Total 980 / 980 Output Total 1925 / 1925 Balance -945 / -945 Weight 63.9 kg Intake: Oral 980 / 980 Output: Urine 950 / 950 Urine Amount (Catheter) 975 / 975 Indwelling Urethral Catheter 975 / 975 Other: Date of Last Bowel Movement 09/05/18 09/05/18 09/05/18 Narrative: GENERAL: Well-developed patient, in no apparent distress. CARDIOVASCULAR: Regular rate and rhythm with systolic ejection murmur, gallops, or rubs. RESPIRATORY: Clear to auscultation. Breath sounds equal bilaterally. No wheezes , rales, or rhonchi. GASTROINTESTINAL: Abdomen soft, non-tender, nondistended. Normal active bowel sounds MUSCULOSKELETAL: Extremities without clubbing, cyanosis, Left Hip dressed. Stage III ulcer on the sacral region currently covered and being medically managed NEURO: Alert & Oriented x4 to person, place, time, situation. Moves all ext x4 - Urinary Catheter Management Indwelling Urethral Catheter Cath placed during this visit: yes, but has since been removed by the nurse Reason for continuing: Terminally ill/Comfort care Insertion date: 09/04/18 Insertion time: 21:24 Removal date: 09/03/18 Removal time: 03:40 Straight Cath placed during this visit: yes, but has since been removed by the nurse Reason for continuing: Chronic Urinary Retention Insertion date: 09/04/18 Insertion time: 15:15 Removal date: 09/04/18 Removal time: 15:20 Results - Labs CBC & Chem 7: 09/07/18 04:39 09/07/18 04:39 Laboratory Results - last 24 hr 09/06/18 09/06/18 09/06/18 12:30 16:48 19:57 WBC RBC Hgb Hct MCV MCH MCHC RDW Plt Count MPV Prelim Diff (Auto) WBC Differential Seg Neuts % (Manual) Lymphocytes % (Manual) Abs Neuts (Manual) Differential Comment Platelet Estimate Platelet Morphology RBC Morphology Sodium Potassium Chloride Carbon Dioxide Anion Gap BUN Creatinine Estimated GFR POC Glucose 296 H 247 H 197 H Random Glucose Calcium 09/07/18 09/07/18 09/07/18 04:39 04:39 06:43 WBC 40.5 H RBC 2.91 L Hgb 9.5 L Hct 28.0 L MCV 96.1 MCH 32.5 MCHC 33.8 RDW 15.4 Plt Count 63 L D MPV 8.5 Prelim Diff (Auto) Manual diff required WBC Differential Manual diff final Seg Neuts % (Manual) 3 L Lymphocytes % (Manual) 97 H Abs Neuts (Manual) 1.2 L Differential Comment . Platelet Estimate Low L Platelet Morphology Normal RBC Morphology Normal Sodium 139 Potassium 4.2 Chloride 103 Carbon Dioxide 27.7 Anion Gap 8 BUN 44 H Creatinine 1.55 H Estimated GFR 32 L POC Glucose 150 H Random Glucose 164 H Calcium 7.8 L - Procedures - Preoperative Diagnosis (1) Closed intertrochanteric fracture Date of procedure: 09/01/18 Procedure: Left hip reduction and intramedullary fixation Anesthesia: GETA Surgeon: Bg Fulton MD Geophysical Party Chief: DAWIT Ponce PA-C Assessment and Plan - Assessment (1) Closed intertrochanteric fracture Code(s): S72.143A - Displaced intertrochanteric fracture of unspecified femur, initial encounter for closed fracture Status: Acute - Plan This is a pleasant 88 y/o Female with history of Breast Cancer, Chronic Lymphatic Leukemia, Dementia, Dm II, Ms. diabetic neuropathy and nephropathy, hypothyroidism, and stage IV chronic kidney disease admitted for left trochanteric fracture. Left intertrochanteric fracture, minimally displaced -Status post Left hip reduction and Intramedullary fixation by Doctor Bg Fulton continue Pain medicine, Calcium and vitamin D supplementation, PT following. Status post Blood transfusion six units of PRBCs. Hemoglobin today 9.3 recommended for discharge by Orthopedic surgery. PT recommending inpatient rehab Type 2 Diabetes Mellitus -Continue home Levemir but reduce dosage to 8 units at bedtime during acute hospitalization - Accu-Cheks before meals and at bedtime with low-dose NovoLog sliding scale coverage - Hypoglycemia protocol - Monitor trends and blood glucose readings and adjust treatments as indicated Chronic lymphocytic leukemia currently on chemotherapy status post four units of PRBCs. -09/03 as per Doctor Payne she has chronic Lymphocytic Leukemia, on hold Ventoclax, she has aggressive form of her disease, her Daughter asking to decrease Narcotic management, As per Oncology if survive 4 to 6 weeks will arrange for needle biopsy of the left breast. 09/04: today Hemoglobin 7.1 giving two units of PRBCs as per behavior management specialist. 09/05: behavior management specialist doctor Payne in to see the patient recommended the patient will need to be followed in house for at least two days, asked for Haptoglobin to rule out Hemolysis secondary to CLL, If the platelets are below 40,000 would hold Xarelto in spite of the risks of DVT and pulmonary emboli. If platelets are consistently above 50,000 would resume prophylactic anticoagulation with either Lovenox or Xarelto. today [id number] Chronic kidney disease -BUN 28, creatinine 1.49, seen patient with dehydration and given IV fluids. today eating and drinking better recommended removed IV fluids. Sacral wound Wound care consulted Diabetic neuropathy -Continue home gabapentin DVT prophylaxis -SCDs Code Status: DNR Discussed Condition With: Patient, nurse, and 2 daughters Discharge Planning: Anticipate discharge to halfway facility (1) Closed intertrochanteric fracture Qualifiers: Encounter type: initial encounter Fracture alignment: displaced Laterality: left Qualified Code(s): S72.142A - Displaced intertrochanteric fracture of left femur, initial encounter for closed fracture
[2018-09-07] MEDS: Insulin Detemir Inj 1,000 UNIT/10 ML Vial SQ SCH (20:48)
[2018-09-07] MEDS ORDERED: Gabapentin 100 MG Capsule PO ONE (21:00)
[2018-09-08] MEDS: Acetaminophen 500 MG Tablet PO PRN ×2 (00:43→06:19)
[2018-09-08] MEDS: Insulin NovoLOG Aspart Correctional Sugar Inj SQ SCH ×4 (07:28→20:19)
[2018-09-08 08:39] LABS: Hemoglobin 9.2 gm/dL (11.6-15.3); Mean Corpuscular HGB Conc 33.9 % (32.0-36.0); Mean Corpuscular Hemoglobin 32.5 pg (27.0-34.0); Mean Platelet Volume 8.1 fL (7.0-11.0); Platelet Count 78 th/mm3 (150-450); Red Blood Count 2.82 mil/mm3 (4.00-5.30); Red Cell Distribution Width 15.3 % (11.6-17.2); White Blood Count 36.6 th/mm3 (4.0-11.0)
[2018-09-08] MEDS: VENCLEXTA 100 MG PO SCH (08:52)
[2018-09-08] MEDS: Calcium/Vitamin D 250/125 MG Tablet PO SCH ×3 (08:52→18:37)
[2018-09-08] MEDS: Sodium Chloride 0.9% 2 ML Flush BID IV.FLUSH SCH ×2 (08:52→20:16)
[2018-09-08] MEDS: Gabapentin 100 MG Capsule PO SCH ×2 (08:52→20:17)
[2018-09-08 09:03] LABS: Calcium 8.2 mg/dL (8.5-10.1); Carbon Dioxide 29.3 meq/L (21.0-32.0); Potassium 4.3 meq/L (3.5-5.1)
--- NOTE | 2018-09-08 09:37 | P.PN ---
Subjective Interval history: Follow-up for left hip fracture, DM, CLL. Patient seen sitting upright, eating breakfast. She reports some left leg pain, however fairly well-controlled. Family requesting the patient to try Tylenol #3 instead of [place]. Patient has no other medical complaints including no fever/chills, lightheadedness, chest pain, shortness of breath, or abdominal complaints. Physical Exam Vital signs: Vital Signs 09/07/18 10:29 09/07/18 11:11 09/07/18 12:00 Temperature 97.3 F L Pulse Rate 74 76 Respiratory Rate 18 16 Blood Pressure 153/65 H Pulse Oximetry 99 09/07/18 15:23 09/07/18 16:00 09/07/18 20:00 Temperature 98.0 F 98.1 F Pulse Rate 83 85 Respiratory Rate 18 16 16 Blood Pressure 139/64 142/62 H Pulse Oximetry 100 100 09/08/18 00:00 09/08/18 01:00 09/08/18 04:00 Temperature 98.1 F 97.7 F Pulse Rate 84 79 Respiratory Rate 16 17 16 Blood Pressure 158/67 H 129/74 Pulse Oximetry 100 100 09/08/18 08:00 Temperature 97.7 F Pulse Rate 79 Respiratory Rate 18 Blood Pressure 139/58 L Pulse Oximetry 96 Intake & Output 09/07/18 09/08/18 09/08/18 18:59 06:59 18:59 Intake Total 1140 / 1140 Output Total 1800 / 1800 Balance -660 / -660 Weight 66.9 kg Intake: Oral 1140 / 1140 Output: Urine 700 / 700 Urine Amount (Catheter) 1100 / 1100 Indwelling Urethral Catheter 1100 / 1100 Other: Date of Last Bowel Movement 09/05/18 09/07/18 # Bowel Movements 1 Narrative: GENERAL: Well-nourished, well-developed pleasant elderly female patient in [facility]. SKIN: Warm and dry. Sacral ulcer, stage III, covered with dressing. Left hip surgical dressing in place, CDI. HEENT: Normocephalic. Atraumatic. Pupils equal and round. Mucous membranes pink and moist. CARDIOVASCULAR: Regular rate and rhythm. No murmur appreciated. RESPIRATORY: No accessory muscle use. Clear to auscultation. Breath sounds equal bilaterally. GASTROINTESTINAL: Abdomen soft, non-tender, nondistended. Normoactive bowel sounds x4. MUSCULOSKELETAL: No obvious deformities. Extremities without clubbing, cyanosis , or edema. NEUROLOGICAL: Awake and alert. No obvious cranial nerve deficits. Moving all extremities spontaneously. Normal speech. PSYCHIATRIC: Appropriate mood and affect; insight and judgment normal. - Urinary Catheter Management Indwelling Urethral Catheter Cath placed during this visit: yes, but has since been removed by the nurse Reason for continuing: Terminally ill/Comfort care Insertion date: 09/04/18 Insertion time: 21:24 Removal date: 09/03/18 Removal time: 03:40 Straight Cath placed during this visit: yes, but has since been removed by the nurse Reason for continuing: Chronic Urinary Retention Insertion date: 09/04/18 Insertion time: 15:15 Removal date: 09/04/18 Removal time: 15:20 Results - Labs CBC & Chem 7: 09/08/18 07:24 09/08/18 07:24 Laboratory Results - last 24 hr 09/07/18 09/07/18 09/07/18 11:25 17:01 20:27 WBC RBC Hgb Hct MCV MCH MCHC RDW Plt Count MPV Sodium Potassium Chloride Carbon Dioxide Anion Gap BUN Creatinine Estimated GFR POC Glucose 197 H 196 H 315 H Random Glucose Calcium 09/08/18 09/08/18 09/08/18 07:23 07:24 07:24 WBC 36.6 H RBC 2.82 L Hgb 9.2 L Hct 27.0 L MCV 96.0 MCH 32.5 MCHC 33.9 RDW 15.3 Plt Count 78 L MPV 8.1 Sodium 142 Potassium 4.3 Chloride 105 Carbon Dioxide 29.3 Anion Gap 8 BUN 44 H Creatinine 1.48 H Estimated GFR 33 L POC Glucose 125 H Random Glucose 120 H Calcium 8.2 L - Imaging Chest X-Ray 08/31/18 19:26 CONCLUSION: No evidence of acute cardiopulmonary disease. Hip X-Ray 08/31/18 19:26 CONCLUSION: Acute, minimally displaced left intertrochanteric fracture. Hip X-Ray 09/01/18 00:00 CONCLUSION: Satisfactory postoperative appearance of the left hip status post ORIF of an intertrochanteric fracture. - Procedures - Preoperative Diagnosis (1) Closed intertrochanteric fracture Date of procedure: 09/01/18 Procedure: Left hip reduction and intramedullary fixation Anesthesia: GETA Surgeon: Bg Fulton MD Cheese Wrapper: DAWIT Ponce PA-C Assessment and Plan - Assessment (1) Closed intertrochanteric fracture Code(s): S72.143A - Displaced intertrochanteric fracture of unspecified femur, initial encounter for closed fracture Status: Acute - Plan This is a pleasant 88 y/o Female with history of Breast Cancer, Chronic Lymphatic Leukemia, Dementia, Dm II, Ms. diabetic neuropathy and nephropathy, hypothyroidism, and stage IV chronic kidney disease admitted for left trochanteric fracture. Left intertrochanteric fracture, minimally displaced -Status post Left hip reduction and Intramedullary fixation by Doctor Bg Fulton on 09/01 -continue Pain control, Calcium and vitamin D supplementation, PT following. -Status post Blood transfusion six units of PRBCs. Hemoglobin today 9.2 -recommended for discharge by Orthopedic surgery. -PT recommending inpatient rehab -change norco to Tylenol #3 today per family request Type 2 Diabetes Mellitus -Continue home Levemir but reduce dosage to 8 units at bedtime during acute hospitalization - Accu-Cheks and cover with low-dose NovoLog sliding scale coverage - Hypoglycemia protocol - Monitor trends and blood glucose readings and adjust treatments as indicated Chronic lymphocytic leukemia currently on chemotherapy status post four units of PRBCs. -09/03 as per Doctor Payne she has chronic Lymphocytic Leukemia, on hold Ventoclax, she has aggressive form of her disease, her Daughter asking to decrease Narcotic management, As per Oncology if survive 4 to 6 weeks will arrange for needle biopsy of the left breast. -09/04: today Hemoglobin 7.1 giving two units of PRBCs as per staffing specialist. -09/05: staffing specialist doctor Payne in to see the patient recommended the patient will need to be followed in house for at least two days, asked for Haptoglobin to rule out Hemolysis secondary to CLL, If the platelets are below 40,000 would hold Xarelto in spite of the risks of DVT and pulmonary emboli. If platelets are consistently above 50,000 would resume prophylactic anticoagulation with either Lovenox or Xarelto. today [id number] 09/08: Hgb 9.2, Platelets 78K. Await follow up from Dr. Payne today Chronic kidney disease -BUN 28, creatinine 1.49, seen patient with dehydration and given IV fluids. -d/c IVF, patient tolerating oral intake, labs stable Sacral wound -Wound care consulted, appreciate recommendations Diabetic neuropathy -Continue home gabapentin DVT prophylaxis -SCDs Discharge Planning: Await clearance from hematology Dr. Payne. Will need rehab placement, case management assisting with discharge planning. (1) Closed intertrochanteric fracture Qualifiers: Encounter type: initial encounter Fracture alignment: displaced Laterality: left Qualified Code(s): S72.142A - Displaced intertrochanteric fracture of left femur, initial encounter for closed fracture
[2018-09-08] MEDS ORDERED: Acetaminophen/Codeine 300/30 MG Tablet PO PRN (09:52)
--- NOTE | 2018-09-08 15:18 | P.PNONC ---
Subjective Interval history: Patient is more alert and comfortable today. Her daughter is at her bedside. She is having some discomfort from the Galvez catheter. Objective Vital Signs/Intake & Output: Vital Signs 09/07/18 15:23 09/07/18 16:00 09/07/18 20:00 Temperature 98.0 F 98.1 F Pulse Rate 83 85 Respiratory Rate 18 16 16 Blood Pressure 139/64 142/62 H Pulse Oximetry 100 100 09/08/18 00:00 09/08/18 01:00 09/08/18 04:00 Temperature 98.1 F 97.7 F Pulse Rate 84 79 Respiratory Rate 16 17 16 Blood Pressure 158/67 H 129/74 Pulse Oximetry 100 100 09/08/18 08:00 09/08/18 12:00 Temperature 97.7 F 98.2 F Pulse Rate 79 80 Respiratory Rate 18 18 Blood Pressure 139/58 L 125/60 Pulse Oximetry 96 100 Intake & Output 09/07/18 09/08/18 09/08/18 18:59 06:59 18:59 Intake Total 1140 / 1140 Output Total 1800 / 1800 Balance -660 / -660 Weight 66.9 kg Intake: Oral 1140 / 1140 Output: Urine 700 / 700 Urine Amount (Catheter) 1100 / 1100 Indwelling Urethral Catheter 1100 / 1100 Other: Date of Last Bowel Movement 09/05/18 09/07/18 09/07/18 # Bowel Movements 1 Result Diagrams: 09/08/18 07:24 09/08/18 07:24 Laboratory Results: Laboratory Results - last 24 hr 09/07/18 09/07/18 09/08/18 17:01 20:27 07:23 WBC RBC Hgb Hct MCV MCH MCHC RDW Plt Count MPV Sodium Potassium Chloride Carbon Dioxide Anion Gap BUN Creatinine Estimated GFR POC Glucose 196 H 315 H 125 H Random Glucose Calcium 09/08/18 09/08/18 09/08/18 07:24 07:24 12:32 WBC 36.6 H RBC 2.82 L Hgb 9.2 L Hct 27.0 L MCV 96.0 MCH 32.5 MCHC 33.9 RDW 15.3 Plt Count 78 L MPV 8.1 Sodium 142 Potassium 4.3 Chloride 105 Carbon Dioxide 29.3 Anion Gap 8 BUN 44 H Creatinine 1.48 H Estimated GFR 33 L POC Glucose 296 H Random Glucose 120 H Calcium 8.2 L Medications: Active Medications Generic Name Dose Route Start Last Admin Trade Name Clayq PRN Reason Stop Dose Admin Acetaminophen 500 mg 09/03/18 08:53 09/08/18 06:19 Tylenol PO 500 mg Q4H PRN Administration headache/fever/pain 1-2 Al Hydroxide/Mg Hydroxide 30 ml 08/31/18 21:34 09/05/18 10:24 Milk Of Magnesia Liq PO 30 ml Q12H PRN Administration Mild Constipation Bisacodyl 10 mg 08/31/18 21:34 09/07/18 10:47 Dulcolax Supp RECTAL 10 mg DAILY PRN Administration SEVERE CONSITIPATION Calcium/Vitamin D 1 tab 09/01/18 13:30 09/08/18 12:51 Oscal With D 250/125 Mg PO 1 tab TID JESSICA Administration Gabapentin 100 mg 09/01/18 09:00 09/08/18 08:52 Neurontin PO 100 mg BID JESSICA Administration Insulin Aspart 0 unit 09/01/18 08:00 09/08/18 12:49 Novolog Insulin Correctional Sugar Inj SQ 5 unit ACHS JESSICA Administration Protocol Insulin Detemir 12 unit 09/03/18 21:00 09/07/18 20:48 Levemir Inj SQ 12 unit HS JESSICA Administration Lactulose 30 ml 08/31/18 21:34 09/03/18 21:02 Lactulose Liq PO 30 ml DAILY PRN Administration SEVERE CONSITIPATION Ondansetron HCl 4 mg 09/01/18 17:15 09/04/18 11:00 Zofran Inj IV.PUSH 4 mg Q6H PRN Administration NAUSEA OR VOMITING Pt Own Venclexta 100 0 each 09/01/18 09:00 09/08/18 08:52 Mg PO Not Given DAILY [facility] Sennosides 17.2 mg 08/31/18 21:34 09/05/18 10:25 Senokot PO 17.2 mg Q12H PRN Administration Moderate Constipation Sodium Chloride 2 ml 09/01/18 09:00 09/08/18 08:52 Ns Flush IV.FLUSH 2 ml BID [facility] Administration Vitamin D 5,000 unit 09/02/18 09:00 09/08/18 08:52 Vitamin D3 PO 5,000 unit DAILY JESSICA Administration Objective Remarks: GENERAL: Remains frail but more alert and stronger than last week. SKIN: Warm and dry. HEAD: Normocephalic. EYES: No scleral icterus. No injection or drainage. NECK: Supple, trachea midline. No JVD or lymphadenopathy. LYMPHATIC: No adenopathy. CARDIOVASCULAR: Regular rate and rhythm without murmurs. RESPIRATORY: Breath sounds equal bilaterally. No accessory muscle use. GASTROINTESTINAL: Abdomen soft, non-tender, spleen is 4-5 cm below the left costal margin EXTREMITIES: No cyanosis, or edema. MUSCULOSKELETAL: Poor muscle tone Galvez catheter in place Significant ecchymoses over left flank, hip, left upper femoral area NEUROLOGICAL: No obvious focal deficit. Awake, alert, speech much more appropriate PSYCHIATRIC: Spirits better Assessment/Plan - Plan Ms. Scott is a frail 88-year-old female patient with chronic lymphocytic leukemia. She has aggressive form of CLL. Venetoclax is currently on hold. She also has a history of dementia and probable left breast cancer. She is currently hospitalized after a recent hip fracture. Recommendations: 1. CLL, venetoclax currently on hold. This may be resumed once recovered from acute illness. 2. Dementia which at times has worsened with with narcotics. 3. Neutropenia, ANC continues to fluctuate. Nothing to do and neutrophil count adequate 4. Hip fracture, management per attending. 5. She has a significant risk of developing a DVT. Her platelets are now greater than 50,000. Will resume prophylactic anticoagulation but will use Eliquis 2.5 mg p.o. twice daily rather than Xarelto due to renal excretion. 6. Hemoglobin mostly stable. Will repeat CBC and platelet count tomorrow. 7. If stable tomorrow could be discharged to rehab. I have spoken with the hospitalist, Dr. Pressley. The patient's Galvez catheter will be removed. She will be reevaluated tomorrow and hopefully will be able to go to rehab. The above was discussed with the patient's daughter as well. Will evaluate breast cancer in the future if she is stable.
[2018-09-08] MEDS: Insulin Detemir Inj 1,000 UNIT/10 ML Vial SQ SCH (20:19)
[2018-09-09 05:38] LABS: Hematocrit 27.5 % (35.0-46.0); Hemoglobin 9.1 gm/dL (11.6-15.3); Mean Corpuscular HGB Conc 33.1 % (32.0-36.0); Mean Corpuscular Hemoglobin 32.1 pg (27.0-34.0); Mean Platelet Volume 8.1 fL (7.0-11.0); Platelet Count 93 th/mm3 (150-450); Red Blood Count 2.84 mil/mm3 (4.00-5.30); Red Cell Distribution Width 15.4 % (11.6-17.2); White Blood Count 42.1 th/mm3 (4.0-11.0)
[2018-09-09 06:59] LABS: Lymphocytes 98 % (9-44)
[2018-09-09 07:01] LABS: Platelet Morphology Normal (Normal); Smudge Cells Present
[2018-09-09 08:28] VITALS: BP 152/68; PULSE 87; RESP 18; TEMP 98.1; O2SAT 92
[2018-09-09] MEDS: Calcium/Vitamin D 250/125 MG Tablet PO SCH (08:41)
[2018-09-09] MEDS: Gabapentin 100 MG Capsule PO SCH (08:41)
[2018-09-09] MEDS: Acetaminophen 500 MG Tablet PO PRN (08:42)
--- NOTE | 2018-09-09 08:59 | P.DS ---
Date of admission: 08/31/18 21:30 Primary care physician: João Finnegan MD Attending physician on discharge: Alan Ordonez Anticipated date of discharge: 09/09/18 Brief History from admission: Ms. Scott is an 88-year-old female with a history of breast cancer, chronic lymphatic leukemia, dementia, diabetes mellitus, diabetic neuropathy and nephropathy, hypothyroidism, and stage IV chronic kidney disease who presented to the emergency room following a mechanical fall at home with subsequent left hip pain. She was found to have a minimally displaced left trochanter fracture and was admitted to the hospitalist service for medical management with orthopedic consult for surgical repair. Patient is seen in her hospital room after being turned for cleaning by nursing staff. She is in exquisite pain, sharp to left hip. Obviously, movement making her pain worse. She reports that she was stepping outside of her home down a few steps and lost her footing and fell landing on her left hip. She had abrupt onset of left hip pain with inability to bear weight. She reports history of falling frequently over the past month. She denies any recent fever , chills, chest pain, or shortness of breath. She reports a chronic cough over the past month. Chest x-ray in the ED was negative. Oxygen saturation 96-100% on room air. . Patient update on day of discharge: The patient is seen with family at bedside. She reports her pain is fairly well controlled with tramadol. She is currently eating breakfast, family requesting Glucerna shake. The patient denies any fevers/chills, headache, chest pain, shortness of breath, or abdominal complaints. Discussed with RNLeonor to be removed. Family happy with the patient going to rehab today. DS: Diagnosis - Discharge Diagnosis (1) Closed intertrochanteric fracture Status: Acute (2) CLL (chronic lymphocytic leukemia) Status: Acute DS: Medications - Discharge Medications Prescriptions: apixaban [Eliquis] 2.5 mg PO BID 30 Days #60 tab cholecalciferol (vitamin D3) 5,000 unit PO DAILY #30 cap gabapentin 100 mg PO BID #60 cap tramadol 50 mg PO Q6H PRN #28 tab PRN Reason: Acute Pain DS: Summary Hospital Course: This is a pleasant 88 y/o Female with history of Breast Cancer, Chronic Lymphatic Leukemia, Dementia, Dm II, Ms. diabetic neuropathy and nephropathy, hypothyroidism, and stage IV chronic kidney disease admitted for left trochanteric fracture. Left intertrochanteric fracture, minimally displaced. Status post Left hip reduction and Intramedullary fixation by Doctor Bg Fulton on 09/01. Continue Pain control, Calcium and vitamin D supplementation, PT following, recommending rehab. Status post Blood transfusion six units of PRBCs, see below. Cleared for discharge to rehab by Orthopedic surgery. Case management arranged for placement at [facility], family happy with this plan. Pain well controlled on patient's tramadol. Continue f/up with ortho as recommended. Type 2 Diabetes Mellitus: Continue home Levemir but reduce dosage to 8 units at bedtime during acute hospitalization. Accu-Cheks and cover with low-dose NovoLog sliding scale coverage. Hypoglycemia protocol. Monitor trends and blood glucose readings and adjust treatments as indicated. BG becoming elevated as patient is eating more post surgery. Resume home dose of levemir at discharge. Chronic lymphocytic leukemia currently on chemotherapy. Known to Dr. Payne as outpatient. Dr. Payne reports she has chronic Lymphocytic Leukemia, recommended to hold Ventoclax, she has aggressive form of her disease. Hgb dropped as low as 6.2. She was given total of 6u pRBC transfusion during admission. Dr. Payne recommending observing over the weekend. Hgb stabilized around 9. Plts improved to 93K, therefore Dr. Payne placed the patient on Eliquis for DVT/PE prophylaxis since she is high risk. Discussed with Dr. Payne, cleared for discharge to inpatient rehab. Chronic kidney disease, stage III: BUN 28, creatinine 1.49, mild dehydration, s/ p IV fluids. Now tolerating oral intake. Renal function stabilized, appears at baseline. D/c IVF. Sacral wound: Wound care consulted, discussed with RN, wound not a pressure ulcer, likely from moisture, appreciate recommendations. Diabetic neuropathy: Continue home gabapentin - Time Spent with Patient Total time spent providing and/or coordinating discharge services: Greater than 30 minutes - Quality: VTE Deep Vein Thrombosis/Pulmonary Embolism Present on Admission: No Exam Vital signs: Vital Signs 09/08/18 12:00 09/08/18 16:00 09/08/18 20:00 Temperature 98.2 F 98.1 F 97.7 F Pulse Rate 80 84 90 Respiratory Rate 16 Blood Pressure 125/60 126/60 136/62 Pulse Oximetry 100 99 97 09/08/18 20:01 09/08/18 20:50 09/09/18 00:00 Temperature 98.5 F Pulse Rate 93 H 89 Respiratory Rate 18 16 Blood Pressure 148/68 H Pulse Oximetry 98 09/09/18 03:46 09/09/18 03:50 09/09/18 04:00 Temperature 98.6 F Pulse Rate 82 64 Respiratory Rate 17 16 Blood Pressure 161/72 H Pulse Oximetry 95 09/09/18 08:00 Temperature 98.1 F Pulse Rate 87 Respiratory Rate 18 Blood Pressure 152/68 H Pulse Oximetry 92 L Intake & Output 09/08/18 09/09/18 09/09/18 18:59 06:59 18:59 Intake Total 1010 / 1010 Output Total 250 / 250 550 / 550 850 / 850 Balance 760 / 760 -550 / -550 -850 / -850 Weight 66.8 kg Intake: Oral 1010 / 1010 Output: Urine 250 / 250 Urine Amount (Catheter) 550 / 550 850 / 850 Indwelling Urethral Catheter 550 / 550 850 / 850 Other: Date of Last Bowel Movement 09/07/18 09/07/18 # Bowel Movements 1 Narrative: GENERAL: Well-nourished, well-developed pleasant elderly female patient in [facility]. Family at bedside. SKIN: Warm and dry. Sacral ulcer, not visualized today, covered with dressing. Left hip surgical dressing in place, CDI, with surrounding ecchymosis. HEENT: Normocephalic. Atraumatic. Pupils equal and round. Mucous membranes pink and moist. CARDIOVASCULAR: Regular rate and rhythm. No murmur appreciated. RESPIRATORY: No accessory muscle use. Clear to auscultation. Breath sounds equal bilaterally. GASTROINTESTINAL: Abdomen soft, non-tender, nondistended. Normoactive bowel sounds x4. MUSCULOSKELETAL: No obvious deformities. Extremities without clubbing, cyanosis , or edema. NEUROLOGICAL: Awake and alert. No obvious cranial nerve deficits. Moving all extremities spontaneously. Normal speech. PSYCHIATRIC: Appropriate mood and affect; insight and judgment fair. Results Procedures completed during hospitalization: 09/01/18 Procedure: Left hip reduction and intramedullary fixation. Surgeon: Bg Fulton MD. Vice President Sales: Isaias Borjas PA-C, Keny Rueda PA-C Labs on day of discharge: Labs from last 24 hours 09/09/18 09/08/1818 03:59 19:48 17:12 WBC 42.1 H RBC 2.84 L Hgb 9.1 L Hct 27.5 L MCV 97.0 MCH 32.1 MCHC 33.1 RDW 15.4 Plt Count 93 L MPV 8.1 Prelim Diff (Auto) Manual diff required WBC Differential Manual diff final Seg Neuts % (Manual) 1 L Band Neuts % (Manual) 1 Lymphocytes % (Manual) 98 H Abs Neuts (Manual) 0.8 L Differential Comment . Smudge Cells Present H Platelet Estimate Low L Platelet Morphology Normal Sodium Potassium Chloride Carbon Dioxide Anion Gap BUN Creatinine Estimated GFR POC Glucose 286 H 302 H Random Glucose Calcium Rout Panel Path Interp 09/08/18 09/08/18 08/31/18 12:32 07:24 21:09 WBC RBC Hgb Hct MCV MCH MCHC RDW Plt Count MPV Prelim Diff (Auto) WBC Differential Seg Neuts % (Manual) Band Neuts % (Manual) Lymphocytes % (Manual) Abs Neuts (Manual) Differential Comment Smudge Cells Platelet Estimate Platelet Morphology Sodium 142 Potassium 4.3 Chloride 105 Carbon Dioxide 29.3 Anion Gap 8 BUN 44 H Creatinine 1.48 H Estimated GFR 33 L POC Glucose 296 H Random Glucose 120 H Calcium 8.2 L Rout Panel Path Interp - Impressions ITS Impressions Chest X-Ray 08/31/18 19:26 CONCLUSION: No evidence of acute cardiopulmonary disease. Hip X-Ray 09/01/18 00:00 CONCLUSION: Satisfactory postoperative appearance of the left hip status post ORIF of an intertrochanteric fracture. Discharge Plan - Discharge Disposition Patient Disposition: [facility] Rehab Inpatient - Discharge Condition Condition: Stable - Discharge Order Discharge Orders: Discharge Order (Routine); Ordered 09/09/18 Ordered By: Cher Pressley Oncology Clear for Discharge (Routine); Ordered 09/09/18 Ordered By: Ernie Payne Orthopedic Clear for Discharge (Routine); Ordered 09/04/18 Ordered By: Terrance Borjas - Discharge Details Anticipated Discharge Date: 09/09/18 - Physicians Team Primary Care Provider: João Finnegan Attending Provider: Alan Ordonez Other Providers: Ernie Bowles MD ; Bg Fulton MD ; Ernie Payne MD
[2018-09-09] MEDS: Insulin NovoLOG Aspart Correctional Sugar Inj SQ SCH (09:09)
--- NOTE | 2018-09-09 12:24 | P.PNWCN ---
Wound Care Nurse Consult Description: Received wound management consult for sacral area from Doctor Hansen. Communicated with: JAJA knight and Wendy QUINTANA Recommendation: 1.Please cleanse buttock and gluteal cleft areas gentle with Remedy barrier wipes and pat dry. Apply Calazime skin protectant paste to moisture associated skin damage, covering open partial thickness wound. 2.Please turn patient every 2 hours and PRN for comfort and offloading of pressure from pamela Prominences. 3. Do not use cotton pads under patient for moisture management, use one ultrasorb pad only 4. When patient is discharged to [place], patient will need low airloss bed/ mattress due to the high risk of pressure injury development given patient is very pamela, with weakened skin and does not turn herself. Wound/Pressure Injury - Additional Information Patient seen on for wound management of sacral area. Patient was already positioned toward the R side upon sports book writer's arrival. Adhesive foam dressing was noted in place over sacral area. Adhesive foam dressing was removed to reveal a small wound in the gluteal cleft region below the sacrum. Wound appears partial thickness with macerated, jagged wound margins. Periwound presents with blanchable erythema and slightly denuded skin. Wound etiology appears to be moisture related, not pressure.Moisture related wound measures ~ 1.5cm x~1cm x ~<0.1cm. Calazime skin protectant paste was applied to area and RN removed cotton pad under patient and applied ultrasorb pad. Patient was positioned off bottom.
== END 2018-09-09 10:15 ==
LOC: NEPC 19:15 → NEDA 21:30 → N06 22:09
PROVIDERS: ADMIT Internal Medicine; ATTEND Internal Medicine
PROC: ORIFHIP (2018-09-01 11:25)